=== PATIENT | female | born 1955 | race Caucasian/White ===

== ENCOUNTER → 2017-01-15 | Outpatient (CLI) | payer OTHER ==
[2017-01-15 11:27] LABS: ALBUMIN 3.8 GM/DL (3.2-5.2); ALBUMIN/GLOBULIN RATIO 1.27 (1.00-1.93); ALKALINE PHOSPHATASE 114 U/L (45-117); ALT/SGPT 29 U/L (12-78); ANION GAP 9 MEQ/L (8-16); AST/SGOT 23 U/L (15-37); BILIRUBIN,TOTAL 0.5 MG/DL (0.2-1.0); BLOOD UREA NITROGEN 9 MG/DL (7-18); CALCIUM LEVEL 8.5 MG/DL (8.8-10.2); CARBON DIOXIDE LEVEL 28 MEQ/L (21-32); CHLORIDE LEVEL 107 MEQ/L (98-107); CHOLESTEROL LEVEL 182 MG/DL (<200); GLOMERULAR FILTRATION RATE > 60.0 (>45); GLUCOSE, FASTING 94 MG/DL (80-110); POTASSIUM SERUM 4.1 MEQ/L (3.5-5.1); SODIUM LEVEL 144 MEQ/L (136-145); TOTAL PROTEIN 6.8 GM/DL (6.4-8.2); TRIGLYCERIDES LEVEL 131 MG/DL (<150)
== END ==
LOC: M LAB 10:25
PROVIDERS: ATTEND Family Medicine
DX: E66.9 Obesity, unspecified (principal)

== ENCOUNTER → 2017-02-20 | Outpatient (REF) | payer OTHER | LOC: M SFHCPLAZ 14:58 | PROVIDERS: ATTEND Family Medicine | DX: L57.0 Actinic keratosis (principal) ==

== ENCOUNTER → 2017-02-24 | Outpatient (CLI) | payer OTHER ==
[~2017-02-24] VITALS: Ht 172.7 cm; Wt 95.3 kg
[~2017-02-24] MED LIST: NS 1,000 ML IV SCH; PROPOFOL 200 MG/20 ML VIAL As Ordered ONE
--- NOTE | 2017-02-24 08:26 | ROOR ---
Patient Name: Chhaya García Procedure Date: 02/24/2017 8:11 AM Date of : 1955 Age: 61 Room: [facility] Gender: Female Note Status: Finalized Procedure: Colonoscopy Indications: High risk colon cancer surveillance: Personal history of colonic polyps, Last colonoscopy: January 2010 Providers: Joseph MARION MD Referring MD: Carmen Khalil MD Requesting Provider: Medicines: Monitored Anesthesia Care Complications: No immediate complications. Procedure: Pre-Anesthesia Assessment: - The heart rate, respiratory rate, oxygen saturations, blood pressure, adequacy of pulmonary ventilation, and response to care were monitored throughout the procedure. The Colonoscope was introduced through the anus and advanced to the cecum, identified by appendiceal orifice and ileocecal valve. The colonoscopy was performed without difficulty. The patient tolerated the procedure well. The quality of the bowel preparation was good. Findings: The perianal and digital rectal examinations were normal. A few medium-mouthed diverticula were found in the sigmoid colon. Small Internal Hemorrhoids. The entire examined colon appeared normal on direct and retroflexion views. (Exam: Complete, Prep: Good or Excellent.) Impression: - Mild diverticulosis in the sigmoid colon. - Small Internal Hemorrhoids. - The entire colon is normal on direct and retroflexion views. - No specimens collected. Recommendation: - Repeat colonoscopy in 5 years for adenoma surveillance. Joseph Marion MD Joseph MARION MD 02/24/2017 8:26:19 AM This report has been signed electronically. Number of Addenda: 0 Note Initiated On: 02/24/2017 8:11 AM Estimated Blood Loss: Estimated blood loss: none.
[2017-02-24 08:55] VITALS: BP 190/98
== END | disposition home or self-care (01) ==
LOC: M OPP 07:09
PROVIDERS: ATTEND Internal Medicine Gastroenterology
DX: Z12.11 Encounter for screening for malignant neoplasm of colon (principal); K57.30 Diverticulosis of large intestine without perforation or abscess without bleeding; K64.8 Other hemorrhoids; Z86.010 Personal history of colon polyps; Z78.0 Asymptomatic menopausal state; Z88.2 Allergy status to sulfonamides; Z80.9 Family history of malignant neoplasm, unspecified

== ENCOUNTER → 2017-07-10 | Outpatient (CLI) | payer OTHER ==
--- NOTE | 2017-07-10 10:29 | REPMRS ---
Patient History The patient states she had a clinical breast exam in 01/09 Patient is postmenopausal. Family history of unknown cancer in father under age 50. Digital Woman Screen Mammo: July 10, 2017 - Exam #: [id number] Bilateral CC and MLO view(s) were taken. Technologist: Dina Ragsdale, Technologist Prior study comparison: April 22, 2016, digital woman screen mammo performed at [facility]. May 06, 2012, digital woman screen mammo performed at [facility] to [facility]. FINDINGS: There are scattered fibroglandular densities. There is a fairly symmetric fibroglandular pattern in both breasts. There has been no interval development of masses, areas of architectural distortion or clusters of microcalcifications typical of malignancy. ASSESSMENT: BI-RADS/ACR category 2 mammogram. Benign finding(s). Recommendation Routine screening mammogram of both breasts in 1 year (for women over age 40). This mammogram was interpreted with the aid of an FDA-approved computer-aided dectection system. Electronically Signed By: Blayne Bah MD 07/10/17 3400
== END ==
LOC: M WHC 09:51
PROVIDERS: ATTEND Family Medicine
DX: Z12.31 Encounter for screening mammogram for malignant neoplasm of breast (principal); Z78.0 Asymptomatic menopausal state; R92.8 Other abnormal and inconclusive findings on diagnostic imaging of breast

== ENCOUNTER → 2018-04-02 | Outpatient (REF) | payer OTHER ==
[2018-04-02 13:34] LABS: CHOLESTEROL LEVEL 197 MG/DL (<200); CHOLESTEROL RISK RATIO 3.648 (<5); GLUCOSE, FASTING 89 MG/DL (70-100); HDL CHOLESTEROL 54 MG/DL (>40); LDL CHOLESTEROL 128.6 MG/DL (<100); NON-HDL-C 143 MG/DL; TRIGLYCERIDES LEVEL 72 MG/DL (<150)
== END ==
LOC: M SFHCPLAZ 11:11
DX: Z13.1 Encounter for screening for diabetes mellitus (principal); Z13.220 Encounter for screening for lipoid disorders
CPT/HCPCS: 82947

== ENCOUNTER → 2018-04-27 | Outpatient (REF) | payer OTHER ==
[2018-04-27 19:06] LABS: APPEARANCE, URINE HAZY (CLEAR); BACTERIA, URINE AUTO NEGATIVE (NEGATIVE); BILIRUBIN, URINE AUTO NEGATIVE (NEGATIVE); BLOOD, URINE BLOOD 2+ (NEGATIVE); CALCIUM OXALATE CRYSTALS MODERATE; COLOR, URINE YELLOW (YELLOW); GLUCOSE, URINE (UA) AUTO NEGATIVE (NEGATIVE); KETONE, URINE AUTO NEGATIVE (NEGATIVE); LEUKOCYTE ESTERASE, URINE AUTO NEGATIVE (NEGATIVE); MUCUS, URINE SMALL (NEGATIVE); NITRITE, URINE AUTO NEGATIVE (NEGATIVE); PROTEIN, URINE AUTO NEGATIVE (NEGATIVE); RBC, URINE AUTO 9 /HPF (0-3); SPECIFIC GRAVITY URINE AUTO 1.023 (1.002-1.035); SQUAMOUS EPITHELIAL CELL UR AU 0 /HPF (0-6); UROBILINOGEN, URINE AUTO 0.2 mg/dL (0.0-2.0); WBC, URINE AUTO 1 /HPF (0-3)
[2018-04-27 19:08] LABS: MALB URINE SIEMENS 66.9 MG/L; MAU/CREAT RATIO 33.4 MCG/MG (0.0-30.0)
[2018-04-27 19:09] LABS: ANION GAP 8 MEQ/L (8-16); BLOOD UREA NITROGEN 11 MG/DL (7-18); CALCIUM LEVEL 8.7 MG/DL (8.8-10.2); CARBON DIOXIDE LEVEL 27 MEQ/L (21-32); CHLORIDE LEVEL 109 MEQ/L (98-107); CREATININE FOR GFR 0.99 MG/DL (0.55-1.30); FREE T4 0.93 NG/DL (0.76-1.46); GLOMERULAR FILTRATION RATE > 60.0 (>45); GLUCOSE, FASTING 88 MG/DL (70-100); MAGNESIUM LEVEL 2.2 MG/DL (1.8-2.4); POTASSIUM SERUM 3.8 MEQ/L (3.5-5.1); SODIUM LEVEL 144 MEQ/L (136-145); THYROID STIMULATING HORMONE 0.581 uIU/ML (0.358-3.740)
== END ==
LOC: M SFHCPLAZ 13:39
DX: I10 Essential (primary) hypertension (principal)

== ENCOUNTER → 2018-05-07 | Outpatient (REF) | payer OTHER ==
[2018-05-07 12:32] LABS: ANION GAP 10 MEQ/L (8-16); BLOOD UREA NITROGEN 14 MG/DL (7-18); CALCIUM LEVEL 9.5 MG/DL (8.8-10.2); CARBON DIOXIDE LEVEL 29 MEQ/L (21-32); CHLORIDE LEVEL 99 MEQ/L (98-107); CREATININE FOR GFR 1.13 MG/DL (0.55-1.30); GLOMERULAR FILTRATION RATE 51.6 (>45); GLUCOSE, FASTING 97 MG/DL (70-100); POTASSIUM SERUM 3.5 MEQ/L (3.5-5.1); SODIUM LEVEL 138 MEQ/L (136-145)
== END ==
LOC: M SFHCPLAZ 09:54
DX: I10 Essential (primary) hypertension (principal)
CPT/HCPCS: 80048

== ENCOUNTER → 2018-05-31 | Outpatient (REF) | payer OTHER ==
[2018-05-31 16:05] LABS: ANION GAP 7 MEQ/L (8-16); BLOOD UREA NITROGEN 8 MG/DL (7-18); CALCIUM LEVEL 8.7 MG/DL (8.8-10.2); CARBON DIOXIDE LEVEL 27 MEQ/L (21-32); CHLORIDE LEVEL 109 MEQ/L (98-107); CREATININE FOR GFR 0.91 MG/DL (0.55-1.30); GLOMERULAR FILTRATION RATE > 60.0 (>45); GLUCOSE, FASTING 83 MG/DL (70-100); POTASSIUM SERUM 4.1 MEQ/L (3.5-5.1); SODIUM LEVEL 143 MEQ/L (136-145)
== END ==
LOC: M SFHCPLAZ 10:52
DX: I10 Essential (primary) hypertension (principal); D23.39 Other benign neoplasm of skin of other parts of face
CPT/HCPCS: 80048

== ENCOUNTER → 2018-07-13 | Outpatient (CLI) | payer OTHER | LOC: M WHC 11:36 | DX: Z12.31 Encounter for screening mammogram for malignant neoplasm of breast (principal) | CPT/HCPCS: 77067 ==

== ENCOUNTER → 2019-04-07 | Outpatient (REF) | payer MEDICARE, MEDICAID ==
[2019-04-07 13:21] LABS: MALB URINE SIEMENS 24.2 MG/L; MAU/CREAT RATIO 17.4 MCG/MG (0.0-30.0)
[2019-04-07 13:32] LABS: ALBUMIN 3.3 GM/DL (3.2-5.2); ALT/SGPT 32 U/L (12-78); BILIRUBIN,TOTAL 0.5 MG/DL (0.2-1.0); BLOOD UREA NITROGEN 7 MG/DL (7-18); CALCIUM LEVEL 8.4 MG/DL (8.8-10.2); CARBON DIOXIDE LEVEL 24 MEQ/L (21-32); CHLORIDE LEVEL 108 MEQ/L (98-107); CHOLESTEROL LEVEL 180 MG/DL (<200); CREATININE FOR GFR 0.77 MG/DL (0.55-1.30); GLOMERULAR FILTRATION RATE > 60.0 (>45); GLUCOSE, FASTING 88 MG/DL (70-100); HDL CHOLESTEROL 50 MG/DL (>40); LDL CHOLESTEROL 110 MG/DL (<100); NON-HDL-C 130 MG/DL; SODIUM LEVEL 140 MEQ/L (136-145); TOTAL PROTEIN 6.8 GM/DL (6.4-8.2); TRIGLYCERIDES LEVEL 99 MG/DL (<150)
== END ==
LOC: M SFHCPLAZ 09:53
PROVIDERS: ATTEND Family Medicine
DX: I10 Essential (primary) hypertension (principal); Z13.220 Encounter for screening for lipoid disorders

== ENCOUNTER → 2019-04-14 | Outpatient (REF) | payer MEDICARE, MEDICAID ==
[2019-04-16 14:12] LABS: HPV HYBRID CAPTURE II Negative (Negative)
== END ==
LOC: M SFHCPLAZ 13:43
PROVIDERS: ATTEND Family Medicine
DX: Z12.4 Encounter for screening for malignant neoplasm of cervix (principal); R87.610 Atypical squamous cells of undetermined significance on cytologic smear of cervix (ASC-US)
CPT/HCPCS: 87624; 90670; G0009; G0123

== ENCOUNTER → 2019-05-19 | Outpatient (REF) | payer MEDICARE, MEDICAID | LOC: M LAB REF 16:31 | PROVIDERS: ATTEND Family Medicine | DX: L82.1 Other seborrheic keratosis (principal) ==

== ENCOUNTER → 2019-12-26 | Outpatient (CLI) | payer MEDICARE, OTHER ==
[2019-12-26 14:43] LABS: BLOOD UREA NITROGEN 9 MG/DL (7-18); CARBON DIOXIDE LEVEL 27 MEQ/L (21-32); CHLORIDE LEVEL 106 MEQ/L (98-107); CREATININE FOR GFR 0.93 MG/DL (0.55-1.30); GLOMERULAR FILTRATION RATE > 60.0 (>45); GLUCOSE, FASTING 85 MG/DL (70-100); SODIUM LEVEL 139 MEQ/L (136-145)
== END ==
LOC: M PLALAB 11:34
PROVIDERS: ATTEND Family Medicine
DX: I10 Essential (primary) hypertension (principal)

== ENCOUNTER → 2019-12-26 | Outpatient (CLI) | payer MEDICARE, OTHER ==
--- NOTE | 2019-12-28 10:43 | DEXA ---
AP SPINE L1 - L4 1.066 -1.0 0.6 LT FEMUR TOTAL 0.846 -1.3 0.0 LT NECK 0.736 -2.2 -0.7 RT FEMUR TOTAL 0.809 -1.6 -0.3 RT NECK 0.741 -2.1 -0.6 TOTAL BODY TOTAL OTHER COMMENTS: There is low bone density of the spine and hips. FOLLOW-UP: Recommendation for the next bone density exam: 2 years. JOHN
== END ==
LOC: M WHC 11:04
PROVIDERS: ATTEND Family Medicine
DX: M81.0 Age-related osteoporosis without current pathological fracture (principal); I10 Essential (primary) hypertension

== ENCOUNTER → 2021-02-13 | Outpatient (REF) | payer MEDICARE, MEDICAID ==
[2021-02-13 14:01] LABS: HEMOGLOBIN A1c 5.3 %
[2021-02-13 14:07] LABS: ALBUMIN 3.8 GM/DL (3.2-5.2); ALT/SGPT 37 U/L (12-78); BILIRUBIN,TOTAL 0.8 MG/DL (0.2-1.0); BLOOD UREA NITROGEN 5 MG/DL (7-18); CALCIUM LEVEL 9.3 MG/DL (8.8-10.2); CARBON DIOXIDE LEVEL 30 MEQ/L (21-32); CHLORIDE LEVEL 99 MEQ/L (98-107); CHOLESTEROL LEVEL 184 MG/DL (<200); CREATININE FOR GFR 0.85 MG/DL (0.55-1.30); GLOMERULAR FILTRATION RATE > 60.0 (>45); GLUCOSE, FASTING 109 MG/DL (70-100); HDL CHOLESTEROL 42 MG/DL (>40); LDL CHOLESTEROL 105 MG/DL (<100); NON-HDL-C 142 MG/DL; SODIUM LEVEL 139 MEQ/L (136-145); TOTAL PROTEIN 7.3 GM/DL (6.4-8.2); TRIGLYCERIDES LEVEL 183 MG/DL (<150)
== END ==
LOC: M SFHCPLAZ 11:44
PROVIDERS: ATTEND Family Medicine
DX: I10 Essential (primary) hypertension (principal); Z13.1 Encounter for screening for diabetes mellitus; Z13.220 Encounter for screening for lipoid disorders; Z79.899 Other long term (current) drug therapy; Z23 Encounter for immunization
CPT/HCPCS: 36415; 80053; 80061; 83036; 90732; G0009

== ENCOUNTER → 2021-02-18 | Outpatient (REF) | payer MEDICARE, MEDICAID ==
[2021-02-18 15:31] LABS: BLOOD UREA NITROGEN 6 MG/DL (7-18); CALCIUM LEVEL 8.7 MG/DL (8.8-10.2); CARBON DIOXIDE LEVEL 31 MEQ/L (21-32); CHLORIDE LEVEL 104 MEQ/L (98-107); CREATININE FOR GFR 0.92 MG/DL (0.55-1.30); GLOMERULAR FILTRATION RATE > 60.0 (>45); GLUCOSE, FASTING 105 MG/DL (70-100); POTASSIUM SERUM 2.9 MEQ/L (3.5-5.1); SODIUM LEVEL 141 MEQ/L (136-145)
== END ==
LOC: M PLALAB 12:21
PROVIDERS: ATTEND Family Medicine
DX: E87.6 Hypokalemia (principal)

== ENCOUNTER → 2021-02-22 | Outpatient (CLI) | payer MEDICARE, MEDICAID ==
--- NOTE | 2021-02-22 11:32 | REPMRS ---
Patient History The patient states she has not had a clinical breast exam in over a year. Family history of unknown cancer under age 50 in father. 3D TOMOSYNTHESIS WAS PERFORMED. [facility]%. [place] breast density b. Digital Woman Screen Mammo: February 22, 2021 - Exam #: [id number] Bilateral CC and MLO view(s) were taken. Technologist: Roxie Lockett, Technologist Prior study comparison: July 13, 2018, bilateral digital woman screen mammo performed at [facility]. July 10, 2017, digital woman screen mammo performed at [facility]. FINDINGS: There are scattered fibroglandular densities. There has been no change in the appearance of the mammogram from the prior studies. There is a mild amount of residual fibroglandular tissue which is fairly symmetric. There is no interval development of dominant mass, architectural distortion, or clustered microcalcification suggestive of malignancy. Assessment: BI-RADS/ACR category 1 mammogram. Negative Mammogram. Recommendation Routine screening mammogram in 1 year (for women over age 40). This mammogram was interpreted with the aid of an FDA-approved computer-aided dectection system. Electronically Signed By: Blayne Bah MD 02/22/21 [id number]
== END ==
LOC: M WHC 10:13
PROVIDERS: ATTEND Family Medicine
DX: Z12.31 Encounter for screening mammogram for malignant neoplasm of breast (principal); Z80.8 Family history of malignant neoplasm of other organs or systems; E87.6 Hypokalemia

== ENCOUNTER → 2021-02-22 | Outpatient (REF) | payer MEDICARE, MEDICAID ==
[2021-02-22 14:25] LABS: BLOOD UREA NITROGEN 6 MG/DL (7-18); CALCIUM LEVEL 9.2 MG/DL (8.8-10.2); CARBON DIOXIDE LEVEL 24 MEQ/L (21-32); CHLORIDE LEVEL 105 MEQ/L (98-107); CREATININE FOR GFR 0.82 MG/DL (0.55-1.30); GLOMERULAR FILTRATION RATE > 60.0 (>45); GLUCOSE, FASTING 100 MG/DL (70-100); POTASSIUM RANDOM URINE 32.7 MEQ/L; POTASSIUM SERUM 3.4 MEQ/L (3.5-5.1); SODIUM LEVEL 139 MEQ/L (136-145)
== END ==
LOC: M PLALAB 10:43
PROVIDERS: ATTEND Family Medicine
DX: E87.6 Hypokalemia (principal)

== ENCOUNTER → 2021-03-04 | Outpatient (CLI) | payer MEDICARE, MEDICAID ==
[2021-03-04 14:32] LABS: BLOOD UREA NITROGEN 8 MG/DL (7-18); CALCIUM LEVEL 8.8 MG/DL (8.8-10.2); CARBON DIOXIDE LEVEL 28 MEQ/L (21-32); CHLORIDE LEVEL 104 MEQ/L (98-107); CREATININE FOR GFR 0.84 MG/DL (0.55-1.30); GLOMERULAR FILTRATION RATE > 60.0 (>45); GLUCOSE, FASTING 119 MG/DL (70-100); POTASSIUM SERUM 3.8 MEQ/L (3.5-5.1); SODIUM LEVEL 139 MEQ/L (136-145)
== END ==
LOC: M PLALAB 09:28
PROVIDERS: ATTEND Family Medicine
DX: E87.6 Hypokalemia (principal)

== ENCOUNTER → 2021-08-13 | Outpatient (CLI) | payer MEDICARE, MEDICAID ==
--- NOTE | 2021-08-13 12:22 | REP ---
INDICATION: PAIN IN RIGHT ANKLE AND JOINTS OF RIGHT FOOT. COMPARISON: None. TECHNIQUE: Four views FINDINGS: There is a distal fibular fracture. The mortise is intact. Chronic changes are seen distal to the medial malleolus. Plantar and retrocalcaneal heel spurs are present. IMPRESSION: Distal fibular fracture and other findings as described above. <Electronically signed by Cortez Godinez > 08/13/21 [id number]
[2021-08-13 13:33] LABS: BASO # 0.1 10^3/uL (0.0-0.2); BASO % 0.7 % (0.0-1.0); EOS # 0.1 10^3/uL (0.0-0.5); EOS % 0.7 % (0.0-3.0); HEMATOCRIT 41.7 % (36.0-47.0); HEMOGLOBIN 14.1 g/dl (12.0-15.5); LYMPH # 2.7 10^3/uL (1.5-5.0); LYMPH % 31.5 % (24.0-44.0); MEAN CORPUSCULAR HEMOGLOBIN 33.9 pg (27.0-33.0); MEAN CORPUSCULAR HGB CONC 33.8 g/dl (32.0-36.5); MEAN CORPUSCULAR VOLUME 100.2 fl (80.0-96.0); MONO # 0.6 10^3/uL (0.0-0.8); MONO % 7.5 % (2.0-8.0); NEUTROPHILS # 5.1 10^3/uL (1.5-8.5); NEUTROPHILS % 59.1 % (36.0-66.0); PLATELET COUNT, AUTOMATED 239 10^3/uL (150-450); RED BLOOD COUNT 4.16 10^6/uL (4.00-5.40); WHITE BLOOD COUNT 8.6 10^3/uL (4.0-10.0)
[2021-08-13 13:53] LABS: ERYTHROCYTE SEDIMENTATION RATE 29 mm/hr (0-30)
[2021-08-13 14:08] LABS: ALBUMIN 3.3 GM/DL (3.2-5.2); BILIRUBIN,TOTAL 1.1 MG/DL (0.2-1.0); C REACTIVE PROTEIN QUANTITATIV 2.85 MG/DL (0.00-0.30); CALCIUM LEVEL 9.5 MG/DL (8.8-10.2); CREATININE FOR GFR 1.51 MG/DL (0.55-1.30); GLOMERULAR FILTRATION RATE 36.6 (>45); POTASSIUM SERUM 3.3 MEQ/L (3.5-5.1); THYROID STIMULATING HORMONE 2.39 uIU/ML (0.358-3.740)
== END ==
LOC: M PLAIMG 11:09
PROVIDERS: ATTEND Family Medicine
DX: S89.301A Unspecified physeal fracture of lower end of right fibula, initial encounter for closed fracture (principal); Y92.9 Unspecified place or not applicable; Y93.9 Activity, unspecified; Y99.9 Unspecified external cause status; M25.571 Pain in right ankle and joints of right foot; M77.31 Calcaneal spur, right foot
CPT/HCPCS: 36415; 73610; 80053; 83036; 84443; 85025; 85652; 86140; G0463

== ENCOUNTER 2021-08-14 16:48 | Emergency (ER) | payer MEDICARE, MEDICAID ==
[~2021-08-14] VITALS: Ht 172.7 cm; Wt 71.8 kg
[2021-08-14] MEDS ORDERED: NS 1,000 ML IV ONE ×3 (17:50→20:20)
[2021-08-14 18:19] LABS: BASO # 0.1 10^3/uL (0.0-0.2); BASO % 0.9 % (0.0-1.0); EOS # 0.1 10^3/uL (0.0-0.5); EOS % 0.9 % (0.0-3.0); HEMOGLOBIN 12.4 g/dl (12.0-15.5); LYMPH % 30.4 % (24.0-44.0); MEAN CORPUSCULAR HEMOGLOBIN 33.6 pg (27.0-33.0); MEAN CORPUSCULAR HGB CONC 34.4 g/dl (32.0-36.5); MEAN CORPUSCULAR VOLUME 97.6 fl (80.0-96.0); MONO # 0.7 10^3/uL (0.0-0.8); MONO % 10.4 % (2.0-8.0); NEUTROPHILS # 3.7 10^3/uL (1.5-8.5); NEUTROPHILS % 56.9 % (36.0-66.0); PLATELET COUNT, AUTOMATED 166 10^3/uL (150-450); RED BLOOD COUNT 3.69 10^6/uL (4.00-5.40); WHITE BLOOD COUNT 6.4 10^3/uL (4.0-10.0)
[2021-08-14 18:43] LABS: CALCIUM LEVEL 9.1 MG/DL (8.8-10.2); CREATININE FOR GFR 1.43 MG/DL (0.55-1.30); MAGNESIUM LEVEL 1.6 MG/DL (1.8-2.4); POTASSIUM SERUM 3.2 MEQ/L (3.5-5.1)
[2021-08-14] MEDS ORDERED: MAG SULF 1GM/100ML (MAG RUN) 1 GM in IV 1 EA IV ONE ×4 (19:00)
[2021-08-14] MEDS ORDERED: POTASSIUM CHLORIDE 10MEQ SR TABLET PO ONE (19:00)
[2021-08-14 21:46] VITALS: BP 148/83
== END 2021-08-14 22:30 | disposition home or self-care (01) ==
LOC: EDBD 16:48 → M ED 16:48
DX: E86.0 Dehydration (principal); E87.6 Hypokalemia; E83.42 Hypomagnesemia; R53.1 Weakness; I10 Essential (primary) hypertension; Z88.1 Allergy status to other antibiotic agents; Z88.2 Allergy status to sulfonamides; S82.61XA Displaced fracture of lateral malleolus of right fibula, initial encounter for closed fracture; X58.XXXA Exposure to other specified factors, initial encounter; Y92.9 Unspecified place or not applicable
CPT/HCPCS: 73610; 80048; 83735; 85025; 87798; 99285; J3475

== ENCOUNTER → 2021-08-14 | Outpatient (CLI) | payer MEDICARE, MEDICAID ==
--- NOTE | 2021-08-14 10:52 | REP ---
INDICATION: RT ANKLE FX. COMPARISON: 08/13/2021 TECHNIQUE: AP and lateral with cast on FINDINGS: Previously described distal fibular fracture is again noted but the detail of which is decreased due to the overlying cast. There does not appear to be a significant change. The mortise is again seen to be intact. There are no additional fractures identified. IMPRESSION: As above. <Electronically signed by Cortez Godinez > 08/14/21 104
== END ==
LOC: M SOG 09:47
PROVIDERS: ATTEND Orthopaedic Surgery
DX: S82.61XA Displaced fracture of lateral malleolus of right fibula, initial encounter for closed fracture (principal); X58.XXXA Exposure to other specified factors, initial encounter; Y92.9 Unspecified place or not applicable

== ENCOUNTER → 2021-08-16 | Outpatient (CLI) | payer MEDICARE, MEDICAID ==
[2021-08-16 13:42] LABS: BLOOD UREA NITROGEN 7 MG/DL (7-18); CALCIUM LEVEL 8.4 MG/DL (8.8-10.2); CARBON DIOXIDE LEVEL 30 MEQ/L (21-32); CHLORIDE LEVEL 100 MEQ/L (98-107); CREATININE FOR GFR 0.87 MG/DL (0.55-1.30); GLOMERULAR FILTRATION RATE > 60.0 (>45); GLUCOSE, FASTING 82 MG/DL (70-100); MAGNESIUM LEVEL 1.6 MG/DL (1.8-2.4); POTASSIUM SERUM 3.4 MEQ/L (3.5-5.1); SODIUM LEVEL 137 MEQ/L (136-145)
== END ==
LOC: M PLALAB 09:27
PROVIDERS: ATTEND Family Medicine
DX: R94.4 Abnormal results of kidney function studies (principal); E83.42 Hypomagnesemia

== ENCOUNTER → 2021-08-19 | Outpatient (CLI) | payer MEDICARE, MEDICAID ==
[2021-08-19 13:20] LABS: HEMATOCRIT 38.8 % (36.0-47.0); HEMOGLOBIN 13.1 g/dl (12.0-15.5); MEAN CORPUSCULAR HEMOGLOBIN 33.9 pg (27.0-33.0); MEAN CORPUSCULAR HGB CONC 33.8 g/dl (32.0-36.5); MEAN CORPUSCULAR VOLUME 100.5 fl (80.0-96.0); PLATELET COUNT, AUTOMATED 190 10^3/uL (150-450); RED BLOOD COUNT 3.86 10^6/uL (4.00-5.40); WHITE BLOOD COUNT 5.9 10^3/uL (4.0-10.0)
[2021-08-19 13:41] LABS: BLOOD UREA NITROGEN 5 MG/DL (7-18); CALCIUM LEVEL 8.6 MG/DL (8.8-10.2); CARBON DIOXIDE LEVEL 29 MEQ/L (21-32); CHLORIDE LEVEL 99 MEQ/L (98-107); CREATININE FOR GFR 0.87 MG/DL (0.55-1.30); GLOMERULAR FILTRATION RATE > 60.0 (>45); GLUCOSE, FASTING 118 MG/DL (70-100); POTASSIUM SERUM 3.6 MEQ/L (3.5-5.1); SODIUM LEVEL 136 MEQ/L (136-145)
[2021-08-19 13:53] LABS: FOLATE 2.1 NG/ML; VITAMIN B12 LEVEL 459 PG/ML
== END ==
LOC: M PLALAB 11:32
PROVIDERS: ATTEND Family Medicine
DX: E87.6 Hypokalemia (principal); D75.89 Other specified diseases of blood and blood-forming organs; I10 Essential (primary) hypertension
CPT/HCPCS: 36415; 80048; 82607; 82746; 85027; G0463

== ENCOUNTER → 2021-09-03 | Outpatient (CLI) | payer MEDICARE, MEDICAID ==
--- NOTE | 2021-09-03 11:30 | REP ---
INDICATION: ANKLE FX. COMPARISON: 08/14/2021 TECHNIQUE: AP, lateral, oblique views of the right ankle FINDINGS: Oblique fracture of the distal fibular metaphysis demonstrates satisfactory alignment. Further evaluation is limited by overlying cast material. Incidental calcaneal heel spur noted. IMPRESSION: Stable oblique fracture of the distal fibular metaphysis. <Electronically signed by Adarsh Booker > 09/03/21 [id number]
== END ==
LOC: M SOG 11:03
PROVIDERS: ATTEND Orthopaedic Surgery
DX: S82.61XA Displaced fracture of lateral malleolus of right fibula, initial encounter for closed fracture (principal); W18.30XA Fall on same level, unspecified, initial encounter; Y92.009 Unspecified place in unspecified non-institutional (private) residence as the place of occurrence of the external cause

== ENCOUNTER → 2021-09-10 | Outpatient (CLI) | payer MEDICARE, MEDICAID ==
--- NOTE | 2021-09-10 13:47 | REP ---
INDICATION: ABNORMAL WEIGHT LOSS. COMPARISON: None. TECHNIQUE: PA and lateral FINDINGS: The lung kelly are mildly hyperexpanded. There is right CP angle blunting. The heart is not enlarged. The lung kelly are clear. The osseous structures are within normal limits for the patient's age. IMPRESSION: There is mild right CP angle blunting. There are no priors for comparison. Since the patient presents with unintentional weight loss consider contrast-enhanced CT examination of the chest. <Electronically signed by Cortez Godinez > 09/10/21 [id number]
[2021-09-10 15:17] LABS: BASO # 0.1 10^3/uL (0.0-0.2); BASO % 0.7 % (0.0-1.0); EOS # 0.1 10^3/uL (0.0-0.5); EOS % 0.8 % (0.0-3.0); HEMATOCRIT 40.1 % (36.0-47.0); HEMOGLOBIN 13.5 g/dl (12.0-15.5); LYMPH # 2.4 10^3/uL (1.5-5.0); LYMPH % 32.3 % (24.0-44.0); MEAN CORPUSCULAR HGB CONC 33.7 g/dl (32.0-36.5); MONO # 0.8 10^3/uL (0.0-0.8); MONO % 11.4 % (2.0-8.0); NEUTROPHILS % 54.5 % (36.0-66.0); PLATELET COUNT, AUTOMATED 210 10^3/uL (150-450); RED BLOOD COUNT 4.09 10^6/uL (4.00-5.40); WHITE BLOOD COUNT 7.3 10^3/uL (4.0-10.0)
[2021-09-10 15:41] LABS: ALBUMIN 3.3 GM/DL (3.2-5.2); ALT/SGPT 29 U/L (12-78); BILIRUBIN,TOTAL 0.8 MG/DL (0.2-1.0); BLOOD UREA NITROGEN 7 MG/DL (7-18); C REACTIVE PROTEIN QUANTITATIV 1.08 MG/DL (0.00-0.30); CALCIUM LEVEL 9.4 MG/DL (8.8-10.2); CARBON DIOXIDE LEVEL 33 MEQ/L (21-32); CHLORIDE LEVEL 97 MEQ/L (98-107); CREATININE FOR GFR 0.92 MG/DL (0.55-1.30); GLOMERULAR FILTRATION RATE > 60.0 (>45); GLUCOSE, FASTING 112 MG/DL (70-100); POTASSIUM SERUM 3.1 MEQ/L (3.5-5.1); SODIUM LEVEL 137 MEQ/L (136-145); TOTAL PROTEIN 7.3 GM/DL (6.4-8.2)
[2021-09-10 16:14] LABS: ERYTHROCYTE SEDIMENTATION RATE 23 mm/hr (0-30)
[2021-09-10 16:28] LABS: HIV 1&2 SCREEN CENTAUR NEGATIVE (NEGATIVE)
== END ==
LOC: M PLAIMG 12:57
PROVIDERS: ATTEND Family Medicine
DX: R91.8 Other nonspecific abnormal finding of lung field (principal); R63.4 Abnormal weight loss
CPT/HCPCS: 36415; 71046; 80053; 85025; 85652; 86140; 87389; G0472

== ENCOUNTER → 2021-09-16 | Outpatient (CLI) | payer MEDICARE, MEDICAID ==
[~2021-09-16] MED LIST changes: +ISOVUE-370 76% 100ML VIAL As Ordered ONE; -NS 1,000 ML IV SCH; -PROPOFOL 200 MG/20 ML VIAL As Ordered ONE
--- NOTE | 2021-09-16 14:46 | REP ---
INDICATION: ABNORMAL XRAY COMPARISON: Prior plain film examination showed right CP angle blunting with no prior plain films for comparison TECHNIQUE: Standard helical technique after the intravenous administration of 100 cc Isovue 370 FINDINGS: There is no mediastinal or hilar adenopathy. There are no pleural or pericardial effusions. The imaged upper abdomen shows chronic scarring superior pole right kidney which was the only portion of the kidney that was imaged. Bone window technique throughout the exam shows chronic spinal degenerative changes. Evaluation of the lung kelly shows mild biapical pleuroparenchymal scarring. There are a few right lung base CP angle curvilinear densities. There are a few scattered asymmetric pleural based densities bilaterally particularly in the upper lobe regions. There is mild cylindrical bronchiectasis. In the left upper lobe there is a 4 mm size nodule. IMPRESSION: 1. 4 mm size nodule in the left upper lobe. According to the revised Fleischner society criteria this represents a category 3 lesion for which a six-month follow-up CT is recommended. 2. Likely chronic changes in the lung apical regions and in multiple pleural areas as described above. The curvilinear densities in the right CP angle are also likely chronic in nature. These areas can also be followed in the six-month recommended time frame. 3. There is mild cylindrical bronchiectasis. <Electronically signed by Cortez Godinez > 09/16/21 0422
== END ==
LOC: M RAD 11:29
PROVIDERS: ATTEND Family Medicine
DX: R93.89 Abnormal findings on diagnostic imaging of other specified body structures (principal); R91.8 Other nonspecific abnormal finding of lung field
CPT/HCPCS: 71260; Q9967

== ENCOUNTER → 2021-09-24 | Outpatient (CLI) | payer MEDICARE, MEDICAID ==
--- NOTE | 2021-09-24 17:11 | REP ---
INDICATION: RT ANKLE FX. COMPARISON: 09/03/[address] TECHNIQUE: Four views FINDINGS: The previously described distal fibular fracture has indistinct margins consistent with callus formation from healing. There is no change in the mortise. There is possible mild medial widening. Chronic changes are seen arising from the tip of the medial malleolus. These are unchanged. IMPRESSION: Healing fracture <Electronically signed by Cortez Godinez > 09/24/21 [id number]
== END ==
LOC: M SOG 09:04
PROVIDERS: ATTEND Orthopaedic Surgery
DX: S82.61XD Displaced fracture of lateral malleolus of right fibula, subsequent encounter for closed fracture with routine healing (principal)

== ENCOUNTER 2021-10-24 10:43 | Inpatient (IN) | payer MEDICARE, MEDICAID ==
[~2021-10-24] VITALS: Ht 172.7 cm; Wt 61.3 kg
[2021-10-24] MEDS ORDERED: ACETAMINOPHEN 500 MG TAB PO ONE (12:30)
[2021-10-24] MEDS ORDERED: NS 1,000 ML IV ONE (12:30)
[2021-10-24 12:52] LABS: INR 1.15; PROTHROMBIN TIME 15.1 SECONDS (12.7-14.5)
[2021-10-24 13:32] LABS: BASO % 0.4 % (0.0-1.0); EOS % 0.1 % (0.0-3.0); HEMATOCRIT 38.7 % (36.0-47.0); HEMOGLOBIN 13.3 g/dl (12.0-15.5); LYMPH # 1.9 10^3/uL (1.5-5.0); MEAN CORPUSCULAR HEMOGLOBIN 33.4 pg (27.0-33.0); MEAN CORPUSCULAR HGB CONC 34.4 g/dl (32.0-36.5); MEAN CORPUSCULAR VOLUME 97.2 fl (80.0-96.0); MONO # 0.7 10^3/uL (0.0-0.8); NEUTROPHILS # 5.6 10^3/uL (1.5-8.5); NEUTROPHILS % 67.9 % (36.0-66.0); PLATELET COUNT, AUTOMATED 139 10^3/uL (150-450); RED BLOOD COUNT 3.98 10^6/uL (4.00-5.40); WHITE BLOOD COUNT 8.2 10^3/uL (4.0-10.0)
[2021-10-24 14:21] LABS: ERYTHROCYTE SEDIMENTATION RATE 20 mm/hr (0-30)
[2021-10-24] MEDS ORDERED: KCL 10MEQ/100ML SWI (KRUN) 10 MEQ in IV 1 EA IV ONE ×2 (15:00→16:00)
[2021-10-24] MEDS ORDERED: ISOVUE-370 76% 100ML VIAL As Ordered ONE (15:18)
[2021-10-24 15:28] LABS: CK-MB VALUE MASS < 1.0 NG/ML (<3.6); CPK CREATINE PHOSPHOKINASE 62 U/L (26-192); MB/CK RELATIVE INDEX 1.61 (< OR =4)
[2021-10-24 15:34] LABS: ALBUMIN 2.7 GM/DL (3.2-5.2); ALT/SGPT 37 U/L (12-78); BILIRUBIN,DIRECT 0.4 MG/DL (0.0-0.2); BILIRUBIN,TOTAL 1.1 MG/DL (0.2-1.0); BLOOD UREA NITROGEN 10 MG/DL (7-18); CALCIUM LEVEL 8.2 MG/DL (8.8-10.2); CARBON DIOXIDE LEVEL 32 MEQ/L (21-32); CHLORIDE LEVEL 98 MEQ/L (98-107); CREATININE FOR GFR 0.57 MG/DL (0.55-1.30); FREE T4 1.68 NG/DL (0.76-1.46); GLOMERULAR FILTRATION RATE > 60.0 (>45); GLUCOSE, FASTING 103 MG/DL (70-100); LIPASE 86 U/L (73-393); NT-PRO BNP 102 PG/ML (<125); POTASSIUM SERUM 2.6 MEQ/L (3.5-5.1); SODIUM LEVEL 138 MEQ/L (136-145); THYROID STIMULATING HORMONE 0.615 uIU/ML (0.358-3.740); TOTAL PROTEIN 5.8 GM/DL (6.4-8.2)
[2021-10-24] MEDS ORDERED: POTASSIUM CHLORIDE 10MEQ SR TABLET PO ONE ×2 (16:00→19:10)
[2021-10-24 18:39] LABS: RSV AMPLIFICATION NEGATIVE (NEGATIVE)
[2021-10-24] MEDS ORDERED: COMBIVENT RESPIMAT 100-20MCG INHALER 4GM INH PRN (20:00)
[2021-10-24] MEDS ORDERED: BENZONATATE 100MG CAPSULE PO PRN (20:00)
[2021-10-24 20:33] LABS: MAGNESIUM LEVEL 1.4 MG/DL (1.8-2.4)
[2021-10-24] MEDS ORDERED: MAG SULF 1GM/100ML (MAG RUN) 1 GM in IV 1 EA IV ONE (22:00)
[2021-10-24] MEDS ORDERED: MAGNESIUM OXIDE 400MG TAB (MAG-OX) PO ONE (22:00)
[2021-10-24 22:21] LABS: VENOUS BASE EXCESS 2.8 (-2.0-2.0); VENOUS HCO3 26.1 MEQ/L (23.0-27.0); VENOUS O2 SATURATION 84.4 % (60.0-80.0); VENOUS PARTIAL PRESSURE CO2 35.7 mmHg (38.0-50.0); VENOUS PARTIAL PRESSURE O2 47.8 mmHg (30.0-50.0); VENOUS PH 7.482 UNITS (7.330-7.430); VENOUS STANDARD HCO3 26.7 MEQ/L; VENOUS TOTAL CO2 27.2 MEQ/L (24.0-28.0)
[2021-10-24 22:50] LABS: BLOOD UREA NITROGEN 8 MG/DL (7-18); CALCIUM LEVEL 8.6 MG/DL (8.8-10.2); CARBON DIOXIDE LEVEL 30 MEQ/L (21-32); CHLORIDE LEVEL 100 MEQ/L (98-107); CREATININE FOR GFR 0.48 MG/DL (0.55-1.30); GLOMERULAR FILTRATION RATE > 60.0 (>45); GLUCOSE, FASTING 97 MG/DL (70-100); POTASSIUM SERUM 3.3 MEQ/L (3.5-5.1); SODIUM LEVEL 137 MEQ/L (136-145)
[2021-10-25] VITALS (8 sets, daily range): BP systolic 144–173; BP diastolic 76–110
[2021-10-25] MEDS: POTASSIUM CHLORIDE 10MEQ SR TABLET PO SCH ×2 (00:12→04:13)
[2021-10-25] MEDS ORDERED: FLON1SPR (03:54)
[2021-10-25] MEDS ORDERED: HOME MED LIST COMPLETE! XX SCH (03:55)
[2021-10-25] MEDS: HEPARIN SOD (PORCINE) 5000UNITS/ML 1ML VIAL/SYRINGE SC SCH ×3 (05:54→21:12)
[2021-10-25 07:59] LABS: MAGNESIUM LEVEL 2.2 MG/DL (1.8-2.4)
[2021-10-25] MEDS ORDERED: MAG SULF 1GM/100ML (MAG RUN) 1 GM in IV 1 EA IV ONE (08:00)
[2021-10-25] MEDS ORDERED: POTASSIUM CHLORIDE 10MEQ SR TABLET PO ONE (08:00)
[2021-10-25] MEDS ORDERED: ALBUTEROL 90 MCG/ACT 8GM HFA INHALER INH PRN (09:00)
[2021-10-25] MEDS ORDERED: ALBUTEROL SULFATE 2.5 MG/0.5 ML INH NEB SOLN INH PRN (09:00)
[2021-10-25] MEDS ORDERED: NS 1,000 ML IV SCH (09:00)
[2021-10-25] MEDS ORDERED: [UNRECOGNIZED DRUG - OTHER] IV ONE (09:00)
[2021-10-25] MEDS ORDERED: EPINEPHrine INJ 1 MG/ML 1ML AMP IM PRN (09:00)
[2021-10-25] MEDS ORDERED: methylPREDNISolone 125MG 2ML VIAL IV PRN (09:00)
[2021-10-25] MEDS ORDERED: diphenhydrAMINE 50MG/ML VIAL (J1200) IV PRN (09:00)
[2021-10-25] MEDS ORDERED: diphenhydrAMINE 25MG CAP PO ONE (09:00)
[2021-10-25 10:08] LABS: BLOOD UREA NITROGEN 7 MG/DL (7-18); CALCIUM LEVEL 8.8 MG/DL (8.8-10.2); CARBON DIOXIDE LEVEL 23 MEQ/L (21-32); CHLORIDE LEVEL 103 MEQ/L (98-107); CREATININE FOR GFR 0.52 MG/DL (0.55-1.30); GLOMERULAR FILTRATION RATE > 60.0 (>45); GLUCOSE, FASTING 83 MG/DL (70-100); POTASSIUM SERUM 4.7 MEQ/L (3.5-5.1); SODIUM LEVEL 137 MEQ/L (136-145)
[2021-10-25 10:21] LABS: BASO % 0.3 % (0.0-1.0); EOS % 0.2 % (0.0-3.0); HEMATOCRIT 37.7 % (36.0-47.0); LYMPH # 1.7 10^3/uL (1.5-5.0); LYMPH % 25.1 % (24.0-44.0); MEAN CORPUSCULAR HEMOGLOBIN 33.7 pg (27.0-33.0); MEAN CORPUSCULAR HGB CONC 34.5 g/dl (32.0-36.5); MEAN CORPUSCULAR VOLUME 97.7 fl (80.0-96.0); MONO # 0.5 10^3/uL (0.0-0.8); MONO % 6.8 % (2.0-8.0); NEUTROPHILS # 4.4 10^3/uL (1.5-8.5); NEUTROPHILS % 66.8 % (36.0-66.0); PLATELET COUNT, AUTOMATED 134 10^3/uL (150-450); RED BLOOD COUNT 3.86 10^6/uL (4.00-5.40); WHITE BLOOD COUNT 6.6 10^3/uL (4.0-10.0)
[2021-10-25] MEDS: MAGNESIUM OXIDE 400MG TAB (MAG-OX) PO SCH ×2 (10:24→11:18)
[2021-10-25] MEDS ORDERED: CASIRIVIMAB/IMDEVIMAB 1,200 MG in NS 250 ML IV ONE (12:00)
[2021-10-25] MEDS ORDERED: FLUTICASONE PROP 0.05% NASAL SPRAY 16 GM (FLONASE) PRN (21:45)
[2021-10-25] MEDS ORDERED: **hydrALAZINE** 10 MG TAB PO PRN (21:45)
[2021-10-26] MEDS: **hydrALAZINE** 10 MG TAB PO PRN ×2 (05:09→14:49)
[2021-10-26] MEDS: HEPARIN SOD (PORCINE) 5000UNITS/ML 1ML VIAL/SYRINGE SC SCH ×3 (05:09→21:11)
[2021-10-26 05:23] VITALS: BP 166/93
[2021-10-26] MEDS: MAGNESIUM OXIDE 400MG TAB (MAG-OX) PO SCH (08:36)
[2021-10-26 14:44] VITALS: BP 170/92
[2021-10-26] MEDS ORDERED: amLODIPine 5 MG TAB PO ONE (18:00)
[2021-10-26] MEDS ORDERED: FUROSEMIDE 20MG/2ML VIAL (J1940) IV ONE (18:00)
[2021-10-26 18:08] VITALS: BP 151/96
[2021-10-26 18:09] VITALS: BP 151/96
[2021-10-26 22:00] VITALS: BP 112/80
[2021-10-27 05:21] VITALS: BP 125/71
[2021-10-27] MEDS: HEPARIN SOD (PORCINE) 5000UNITS/ML 1ML VIAL/SYRINGE SC SCH ×3 (05:22→21:05)
[2021-10-27] MEDS: MAGNESIUM OXIDE 400MG TAB (MAG-OX) PO SCH (10:18)
[2021-10-27] MEDS: LevoFLOXacin 500 MG TABLET PO SCH (10:19)
[2021-10-27 14:00] VITALS: BP 129/74
[2021-10-27 20:00] VITALS: BP 109/64
[2021-10-28 04:00] VITALS: BP 109/82
[2021-10-28] MEDS: HEPARIN SOD (PORCINE) 5000UNITS/ML 1ML VIAL/SYRINGE SC SCH ×3 (05:35→21:00)
[2021-10-28] MEDS: LevoFLOXacin 500 MG TABLET PO SCH (05:35)
[2021-10-28 07:58] LABS: HEMATOCRIT 38.5 % (36.0-47.0); HEMOGLOBIN 12.9 g/dl (12.0-15.5); MEAN CORPUSCULAR HEMOGLOBIN 33.6 pg (27.0-33.0); MEAN CORPUSCULAR HGB CONC 33.5 g/dl (32.0-36.5); MEAN CORPUSCULAR VOLUME 100.3 fl (80.0-96.0); PLATELET COUNT, AUTOMATED 144 10^3/uL (150-450); RED BLOOD COUNT 3.84 10^6/uL (4.00-5.40); WHITE BLOOD COUNT 7.3 10^3/uL (4.0-10.0)
[2021-10-28] MEDS: MAGNESIUM OXIDE 400MG TAB (MAG-OX) PO SCH (08:10)
[2021-10-28 08:30] LABS: BLOOD UREA NITROGEN 11 MG/DL (7-18); CALCIUM LEVEL 9.6 MG/DL (8.8-10.2); CARBON DIOXIDE LEVEL 30 MEQ/L (21-32); CHLORIDE LEVEL 97 MEQ/L (98-107); CREATININE FOR GFR 0.76 MG/DL (0.55-1.30); GLOMERULAR FILTRATION RATE > 60.0 (>45); GLUCOSE, FASTING 78 MG/DL (70-100); POTASSIUM SERUM 3.3 MEQ/L (3.5-5.1); SODIUM LEVEL 135 MEQ/L (136-145)
[2021-10-28] MEDS ORDERED: POTASSIUM CHLORIDE 10MEQ SR TABLET PO ONE (09:00)
[2021-10-28 18:42] VITALS: BP 107/61
[2021-10-28 20:00] VITALS: BP 125/73
[2021-10-29 04:00] VITALS: BP 116/75
[2021-10-29] MEDS: HEPARIN SOD (PORCINE) 5000UNITS/ML 1ML VIAL/SYRINGE SC SCH ×3 (06:03→22:22)
[2021-10-29] MEDS: LevoFLOXacin 500 MG TABLET PO SCH (06:03)
[2021-10-29] MEDS: MAGNESIUM OXIDE 400MG TAB (MAG-OX) PO SCH (07:38)
[2021-10-29 14:00] VITALS: BP 118/79
[2021-10-29 22:00] VITALS: BP 112/78
[2021-10-29] MEDS: ACETAMINOPHEN TAB 650MG DOSE (2X325MG) PO PRN (22:35)
[2021-10-30 06:00] VITALS: BP 120/85
[2021-10-30] MEDS: LevoFLOXacin 500 MG TABLET PO SCH (06:17)
[2021-10-30] MEDS: HEPARIN SOD (PORCINE) 5000UNITS/ML 1ML VIAL/SYRINGE SC SCH ×3 (06:18→21:45)
[2021-10-30 07:20] LABS: HEMATOCRIT 36.8 % (36.0-47.0); HEMOGLOBIN 12.4 g/dl (12.0-15.5); MEAN CORPUSCULAR HEMOGLOBIN 33.7 pg (27.0-33.0); MEAN CORPUSCULAR HGB CONC 33.7 g/dl (32.0-36.5); PLATELET COUNT, AUTOMATED 165 10^3/uL (150-450); RED BLOOD COUNT 3.68 10^6/uL (4.00-5.40); WHITE BLOOD COUNT 5.8 10^3/uL (4.0-10.0)
[2021-10-30 07:53] LABS: BLOOD UREA NITROGEN 12 MG/DL (7-18); CALCIUM LEVEL 9.3 MG/DL (8.8-10.2); CARBON DIOXIDE LEVEL 28 MEQ/L (21-32); CHLORIDE LEVEL 102 MEQ/L (98-107); CREATININE FOR GFR 0.69 MG/DL (0.55-1.30); GLOMERULAR FILTRATION RATE > 60.0 (>45); GLUCOSE, FASTING 91 MG/DL (70-100); MAGNESIUM LEVEL 1.8 MG/DL (1.8-2.4); SODIUM LEVEL 136 MEQ/L (136-145)
[2021-10-30] MEDS: MAGNESIUM OXIDE 400MG TAB (MAG-OX) PO SCH (09:02)
[2021-10-30 14:00] VITALS: BP 123/83
[2021-10-30] MEDS: ACETAMINOPHEN TAB 650MG DOSE (2X325MG) PO PRN ×2 (15:01→21:45)
[2021-10-30 20:00] VITALS: BP 119/83
[2021-10-31 04:00] VITALS: BP 128/80
[2021-10-31] MEDS: ACETAMINOPHEN TAB 650MG DOSE (2X325MG) PO PRN ×3 (04:55→20:39)
[2021-10-31] MEDS: HEPARIN SOD (PORCINE) 5000UNITS/ML 1ML VIAL/SYRINGE SC SCH ×3 (04:56→20:39)
[2021-10-31 07:20] LABS: HEMATOCRIT 35.2 % (36.0-47.0); HEMOGLOBIN 11.9 g/dl (12.0-15.5); MEAN CORPUSCULAR HEMOGLOBIN 34.1 pg (27.0-33.0); MEAN CORPUSCULAR HGB CONC 33.8 g/dl (32.0-36.5); MEAN CORPUSCULAR VOLUME 100.9 fl (80.0-96.0); PLATELET COUNT, AUTOMATED 164 10^3/uL (150-450); RED BLOOD COUNT 3.49 10^6/uL (4.00-5.40); WHITE BLOOD COUNT 5.9 10^3/uL (4.0-10.0)
[2021-10-31 07:42] LABS: BLOOD UREA NITROGEN 13 MG/DL (7-18); CALCIUM LEVEL 9.1 MG/DL (8.8-10.2); CARBON DIOXIDE LEVEL 28 MEQ/L (21-32); CHLORIDE LEVEL 102 MEQ/L (98-107); CREATININE FOR GFR 0.71 MG/DL (0.55-1.30); GLOMERULAR FILTRATION RATE > 60.0 (>45); GLUCOSE, FASTING 96 MG/DL (70-100); POTASSIUM SERUM 3.8 MEQ/L (3.5-5.1); SODIUM LEVEL 137 MEQ/L (136-145)
[2021-10-31] MEDS: MAGNESIUM OXIDE 400MG TAB (MAG-OX) PO SCH (08:46)
[2021-10-31 14:00] VITALS: BP 119/73
[2021-10-31 20:00] VITALS: BP 141/90
[2021-11-01] MEDS: ACETAMINOPHEN TAB 650MG DOSE (2X325MG) PO PRN ×2 (02:03→21:45)
[2021-11-01 04:09] VITALS: BP 148/82
[2021-11-01] MEDS: HEPARIN SOD (PORCINE) 5000UNITS/ML 1ML VIAL/SYRINGE SC SCH ×3 (05:34→21:44)
[2021-11-01 07:06] LABS: HEMATOCRIT 36.5 % (36.0-47.0); HEMOGLOBIN 12.3 g/dl (12.0-15.5); MEAN CORPUSCULAR HEMOGLOBIN 34.1 pg (27.0-33.0); MEAN CORPUSCULAR HGB CONC 33.7 g/dl (32.0-36.5); MEAN CORPUSCULAR VOLUME 101.1 fl (80.0-96.0); PLATELET COUNT, AUTOMATED 222 10^3/uL (150-450); RED BLOOD COUNT 3.61 10^6/uL (4.00-5.40); WHITE BLOOD COUNT 6.7 10^3/uL (4.0-10.0)
[2021-11-01 07:45] LABS: BLOOD UREA NITROGEN 20 MG/DL (7-18); CALCIUM LEVEL 9.5 MG/DL (8.8-10.2); CARBON DIOXIDE LEVEL 28 MEQ/L (21-32); CHLORIDE LEVEL 102 MEQ/L (98-107); CREATININE FOR GFR 0.71 MG/DL (0.55-1.30); GLOMERULAR FILTRATION RATE > 60.0 (>45); GLUCOSE, FASTING 83 MG/DL (70-100); MAGNESIUM LEVEL 2.1 MG/DL (1.8-2.4); POTASSIUM SERUM 3.5 MEQ/L (3.5-5.1); SODIUM LEVEL 138 MEQ/L (136-145)
[2021-11-01] MEDS: MAGNESIUM OXIDE 400MG TAB (MAG-OX) PO SCH (09:16)
[2021-11-01 21:00] VITALS: BP 160/96
[2021-11-02] MEDS: HEPARIN SOD (PORCINE) 5000UNITS/ML 1ML VIAL/SYRINGE SC SCH ×3 (05:43→21:22)
[2021-11-02 05:47] VITALS: BP 148/94
[2021-11-02 08:00] LABS: HEMATOCRIT 35.4 % (36.0-47.0); MEAN CORPUSCULAR HEMOGLOBIN 34.7 pg (27.0-33.0); MEAN CORPUSCULAR HGB CONC 33.9 g/dl (32.0-36.5); MEAN CORPUSCULAR VOLUME 102.3 fl (80.0-96.0); PLATELET COUNT, AUTOMATED 239 10^3/uL (150-450); RED BLOOD COUNT 3.46 10^6/uL (4.00-5.40); WHITE BLOOD COUNT 5.5 10^3/uL (4.0-10.0)
[2021-11-02 08:13] LABS: BLOOD UREA NITROGEN 16 MG/DL (7-18); CALCIUM LEVEL 9.2 MG/DL (8.8-10.2); CARBON DIOXIDE LEVEL 29 MEQ/L (21-32); CHLORIDE LEVEL 104 MEQ/L (98-107); CREATININE FOR GFR 0.66 MG/DL (0.55-1.30); GLOMERULAR FILTRATION RATE > 60.0 (>45); GLUCOSE, FASTING 98 MG/DL (70-100); MAGNESIUM LEVEL 2.3 MG/DL (1.8-2.4); POTASSIUM SERUM 3.9 MEQ/L (3.5-5.1); SODIUM LEVEL 140 MEQ/L (136-145)
[2021-11-02] MEDS: MAGNESIUM OXIDE 400MG TAB (MAG-OX) PO SCH (08:46)
[2021-11-02] MEDS: ACETAMINOPHEN TAB 650MG DOSE (2X325MG) PO PRN ×2 (08:48→20:42)
[2021-11-02] MEDS: SENOKOT S TAB PO SCH ×2 (09:00→20:40)
[2021-11-02 14:36] VITALS: BP 138/90
[2021-11-02 20:00] VITALS: BP 125/91
[2021-11-03 04:00] VITALS: BP 151/72
[2021-11-03] MEDS: HEPARIN SOD (PORCINE) 5000UNITS/ML 1ML VIAL/SYRINGE SC SCH ×3 (06:02→22:01)
[2021-11-03] MEDS ORDERED: ALENDRONATE 35MG TABLET PO SCH (07:00)
[2021-11-03 07:42] LABS: HEMATOCRIT 35.7 % (36.0-47.0); HEMOGLOBIN 11.8 g/dl (12.0-15.5); MEAN CORPUSCULAR HEMOGLOBIN 34.3 pg (27.0-33.0); MEAN CORPUSCULAR HGB CONC 33.1 g/dl (32.0-36.5); MEAN CORPUSCULAR VOLUME 103.8 fl (80.0-96.0); PLATELET COUNT, AUTOMATED 258 10^3/uL (150-450); RED BLOOD COUNT 3.44 10^6/uL (4.00-5.40); WHITE BLOOD COUNT 7.4 10^3/uL (4.0-10.0)
[2021-11-03 08:02] LABS: BLOOD UREA NITROGEN 16 MG/DL (7-18); CALCIUM LEVEL 9.2 MG/DL (8.8-10.2); CARBON DIOXIDE LEVEL 28 MEQ/L (21-32); CHLORIDE LEVEL 105 MEQ/L (98-107); CREATININE FOR GFR 0.57 MG/DL (0.55-1.30); GLOMERULAR FILTRATION RATE > 60.0 (>45); GLUCOSE, FASTING 95 MG/DL (70-100); MAGNESIUM LEVEL 2.2 MG/DL (1.8-2.4); POTASSIUM SERUM 4.2 MEQ/L (3.5-5.1); SODIUM LEVEL 140 MEQ/L (136-145)
[2021-11-03] MEDS: SENOKOT S TAB PO SCH ×2 (08:12→21:00)
[2021-11-03] MEDS: MAGNESIUM OXIDE 400MG TAB (MAG-OX) PO SCH (08:13)
[2021-11-03] MEDS: ACETAMINOPHEN TAB 650MG DOSE (2X325MG) PO PRN ×2 (12:32→22:05)
[2021-11-03 13:52] VITALS: BP 168/84
[2021-11-03 20:00] VITALS: BP 163/73
[2021-11-04 04:00] VITALS: BP 128/80
[2021-11-04] MEDS: HEPARIN SOD (PORCINE) 5000UNITS/ML 1ML VIAL/SYRINGE SC SCH (06:28)
[2021-11-04 07:25] LABS: HEMATOCRIT 35.6 % (36.0-47.0); HEMOGLOBIN 11.9 g/dl (12.0-15.5); MEAN CORPUSCULAR HEMOGLOBIN 34.7 pg (27.0-33.0); MEAN CORPUSCULAR HGB CONC 33.4 g/dl (32.0-36.5); MEAN CORPUSCULAR VOLUME 103.8 fl (80.0-96.0); PLATELET COUNT, AUTOMATED 266 10^3/uL (150-450); RED BLOOD COUNT 3.43 10^6/uL (4.00-5.40); WHITE BLOOD COUNT 6.7 10^3/uL (4.0-10.0)
[2021-11-04 07:53] LABS: BLOOD UREA NITROGEN 15 MG/DL (7-18); CALCIUM LEVEL 9.2 MG/DL (8.8-10.2); CARBON DIOXIDE LEVEL 24 MEQ/L (21-32); CHLORIDE LEVEL 108 MEQ/L (98-107); CREATININE FOR GFR 0.76 MG/DL (0.55-1.30); GLOMERULAR FILTRATION RATE > 60.0 (>45); GLUCOSE, FASTING 97 MG/DL (70-100); MAGNESIUM LEVEL 2.4 MG/DL (1.8-2.4); POTASSIUM SERUM 4.2 MEQ/L (3.5-5.1); SODIUM LEVEL 141 MEQ/L (136-145)
[2021-11-04] MEDS ORDERED: DOCUSATE SODIUM 100MG CAPSULE PO SCH (09:00)
[2021-11-04] MEDS: ACETAMINOPHEN TAB 650MG DOSE (2X325MG) PO PRN (09:16)
[2021-11-04] MEDS: MAGNESIUM OXIDE 400MG TAB (MAG-OX) PO SCH (09:16)
[2021-11-04] MEDS ORDERED: COLA100C5 PO (11:31)
[2021-11-04] MEDS ORDERED: ALEN35TA56 PO (11:31)
== END 2021-11-04 15:44 | DRG 542 ==
LOC: EDBD 10:43 → M ED 10:43 → M ED INP 10:49 → ENRESERV 22:13 → M 4MAIN 10-25 02:53 → OBSVTOIN 10-25 09:56
PROVIDERS: ADMIT Family Medicine; ATTEND Family Medicine
DX: M84.454A Pathological fracture, pelvis, initial encounter for fracture (principal); U07.1 COVID-19; N39.0 Urinary tract infection, site not specified; E87.2 Acidosis; E87.6 Hypokalemia; E83.42 Hypomagnesemia; R63.4 Abnormal weight loss; B96.29 Other Escherichia coli [E. coli] as the cause of diseases classified elsewhere; Z88.2 Allergy status to sulfonamides; Z87.891 Personal history of nicotine dependence

== ENCOUNTER 2021-11-04 12:40 | Inpatient (IN) | payer MEDICARE, MEDICAID ==
[~2021-11-04] VITALS: Ht 172.7 cm; Wt 65.5 kg
[~2021-11-04 12:40] MED LIST changes: +ALEN35TA56 PO; +COLA100C5 PO; +FLON1SPR; -ISOVUE-370 76% 100ML VIAL As Ordered ONE
[2021-11-04 15:00] VITALS: BP 135/60
--- OUTSIDE RECORDS SUMMARY | 2021-11-04 15:24 | CCD ---
Author Author [facility] Organization [facility] Address Unknown Phone Unavailable Care Team Providers Care Computer Lab Assistant Name Role Phone PACKADARSH MD Unavailable Unavailable PACKADARSH MD Unavailable Unavailable PACKADARSH MD Unavailable Unavailable Re-disclosure Warning The records that you are about to access may contain information from federally-assisted alcohol or drug abuse programs. If such information is present, then the following federally mandated warning applies: This information has been disclosed to you from records protected by federal confidentiality rules (42 CFR part 2). The federal rules prohibit you from making any further disclosure of this information unless further disclosure is expressly permitted by the written consent of the person to whom it pertains or as otherwise permitted by 42 CFR part 2. A general authorization for the release of medical or other information is NOT sufficient for this purpose. The Federal rules restrict any use of the information to criminally investigate or prosecute any alcohol or drug abuse patient.The records that you are about to access may contain highly sensitive health information, the redisclosure of which is protected by Article 27-F of the [facility] Public Health law. If you continue you may have access to information: Regarding HIV / AIDS; Provided by facilities licensed or operated by the [facility] Office of Mental Health; or Provided by the [facility] Office for People With Developmental Disabilities. If such information is present, then the following [facility] mandated warning applies: This information has been disclosed to you from confidential records which are protected by state law. State law prohibits you from making any further disclosure of this information without the specific written consent of the person to whom it pertains, or as otherwise permitted by law. Any unauthorized further disclosure in violation of state law may result in a fine or detention sentence or both. A general authorization for the release of medical or other information is NOT sufficient authorization for further disc losure. Family History Family Member Name Family Member Gender Family Member Status Date o f Status Description Data Source(s) Unknown Unknown Problem MEDENT ([facility]) Encounters Encounter Providers Location Date Indications Data Source(s ) Unknown [address] [facility] [address] 10/12/2021 12:00:00 AM EST eCW1 ([facility]) Office Visit Attender: ADARSH Wallace/Merrill/Ashwin/ Doni 10/10/2021 02:00:00 PM EST MEDENT ([facility]) [place] [address] [facility] [address] 10/08/2021 12:00:00 AM EST eCW1 ([facility]) Office Visit Attender: ADARSH Wallace/Merrill/Ashwin/ Doni 10/02/2021 10:00:00 AM EST MEDENT ([facility]) Office Visit Attender: ADARSH Marion 09/24/2021 02:00:00 PM EDT MEDENT ([facility]) [place] [address] [facility] [address] 09/11/2021 12:00:00 AM EDT eCW1 ([facility]) Office Visit Attender: ADARSH Wallace/Merrill/Ashwin/ Reindl 09/03/2021 10:30:00 AM EDT MEDENT ([facility]) Outpatient [address] [facility] [address] 09/02/2021 12:00:00 AM EDT eCW1 ([facility]) Unknown [address] [facility] [address] 08/20/2021 12:00:00 AM EDT eCW1 ([facility]) Outpatient [address] [facility] [address] 08/19/2021 12:00:00 AM EDT eCW1 ([facility]) Unknown [address] [facility] [address] 08/16/2021 12:00:00 AM EDT eCW1 ([facility]) Unknown [address] [facility] [address] 08/15/2021 12:00:00 AM EDT eCW1 ([facility]) Unknown [address] [facility] [address] 08/15/2021 12:00:00 AM EDT eCW1 ([facility]) Outpatient Attender: ADARSH Wallace/Merrill/Ashwin/ Reindl 08/14/2021 09:00:00 AM EDT MED[facility] ([facility]) [place] [address] [facility] [address] 08/14/2021 12:00:00 AM EDT eCW1 ([facility]) Outpatient [address] [facility] [address] 08/13/2021 12:00:00 AM EDT eCW1 ([facility]) Unknown [address] [facility] [address] 08/13/2021 12:00:00 AM EDT eCW1 ([facility]) Unknown [address] [facility] [address] 08/13/2021 12:00:00 AM EDT eCW1 ([facility]) Unknown [address] [facility] [address] 08/06/2021 12:00:00 AM EDT [facility] [place] [address] [facility] [address] 06/21/2021 12:00:00 AM EDT [facility]CW1 [facility] [place] [address] [facility] [address] 03/04/2021 12:00:00 AM EDT [facility]CW1 [facility] [place] [address] [facility] [address] 02/25/2021 12:00:00 AM EDT eCW1 ([facility] Unknown [address] [facility] [address] 02/18/2021 12:00:00 AM EDT eCW1 ([facility]) Outpatient [address] [facility] [address] 02/13/2021 12:00:00 AM EDT [facility]CW1 [facility] [place] [address] [facility] [address] 02/13/2021 12:00:00 AM EDT eCW1 ([facility] Unknown [address] [facility] [address] 01/18/2021 12:00:00 AM EST eCW1 ([facility]) Unknown [address] [facility] [address] 10/25/2020 12:00:00 AM EST [facility]CW1 ([facility] [place] [address] [facility] [address] 10/04/2020 12:00:00 AM EST eCW1 ([facility]) Immunizations Vaccine Date Status Description Data Source(s) COVID-19 VACCINE Moderna 07/12/2021 12:00:00 AM EDT completed [facility] Vaccine Series Complete: YESThis Data wa s Submitted to [facility]. COVID-19 VACCINE Moderna 06/14/2021 12:00:00 AM EDT completed [facility] Vaccine Series Complete: NOThis Data was Submitted to [facility]. pneumococcal polysaccharide PPV23 02/13/2021 01:26:00 PM EDT comple mark eCW1 ([facility]) pneumococcal polysaccharide PPV23 02/13/2021 01:26:00 PM EDT comple mark eCW1 ([facility]) pneumococcal polysaccharide PPV23 02/13/2021 01:26:00 PM EDT comple mark eCW1 ([facility]) pneumococcal polysaccharide PPV23 02/13/2021 01:26:00 PM EDT comple mark eCW1 ([facility]) pneumococcal polysaccharide PPV23 02/13/2021 01:26:00 PM EDT comple mark eCW1 ([facility]) pneumococcal polysaccharide PPV23 02/13/2021 01:26:00 PM EDT comple mark eCW1 ([facility]) pneumococcal polysaccharide PPV23 02/13/2021 01:26:00 PM EDT comple mark eCW1 ([facility]) pneumococcal polysaccharide PPV23 02/13/2021 01:26:00 PM EDT comple mark eCW1 ([facility]) pneumococcal polysaccharide PPV23 02/13/2021 01:26:00 PM EDT comple mark eCW1 ([facility]) pneumococcal polysaccharide PPV23 02/13/2021 01:26:00 PM EDT comple mark eCW1 ([facility]) pneumococcal polysaccharide PPV23 02/13/2021 01:26:00 PM EDT comple mark eCW1 ([facility]) pneumococcal polysaccharide PPV23 02/13/2021 01:26:00 PM EDT comple mark eCW1 ([facility]) pneumococcal polysaccharide PPV23 02/13/2021 01:26:00 PM EDT comple mark eCW1 ([facility]) pneumococcal polysaccharide PPV23 02/13/2021 01:26:00 PM EDT comple mark eCW1 ([facility]) pneumococcal polysaccharide PPV23 02/13/2021 01:26:00 PM EDT comple mark eCW1 ([facility]) pneumococcal polysaccharide PPV23 02/13/2021 01:26:00 PM EDT comple mark eCW1 ([facility]) pneumococcal polysaccharide PPV23 02/13/2021 01:26:00 PM EDT comple mark eCW1 ([facility]) pneumococcal polysaccharide PPV23 02/13/2021 01:26:00 PM EDT comple mark eCW1 ([facility]) pneumococcal polysaccharide PPV23 02/13/2021 01:26:00 PM EDT comple mark eCW1 ([facility]) pneumococcal polysaccharide PPV23 02/13/2021 01:26:00 PM EDT comple mark eCW1 ([facility]) Medications Medication Brand Name Start Date Product Form Dose Route Admi nistrative Instructions Pharmacy Instructions Status Indications Reaction Description Data Source(s) Cephalexin 500 MG Oral Capsule Cephalexin 09/24/2021 12:00:00 AM EDT ORAL completed MEDENT ([facility] ) Cephalexin 500 MG Oral Capsule CEPHALEXIN 09/24/2021 12:00:00 AM EDT capsule 14 TAKE ONE CAPSULE BY MOUTH TWICE A DAY DIRECTED MAXI MUM DAILY DOSE = 2 TAKE ONE CAPSULE BY MOUTH TWICE A DAY DIRECTED MAXIMUM DAILY DOSE = 2 SOLD: 09/25/2021 [facility] 20 mg 06/22/2021 12:00:00 AM EDT tablet 90 TAKE ONE TABLET BY MOUTH EVERY DAY TAKE ONE TABLET BY MOUTH EVERY DAY SOLD: 06/22/2021 [facility] Lisinopril 20 MG Oral Tablet LISINOPRIL 02/28/2021 12:00:00 AM EDT tab let 90 TAKE ONE TABLET BY MOUTH EVERY DAY TAKE ONE TABLET BY MOUTH EVERY DAY SOLD: 02/28/2021 [facility] 20 mEq 02/19/2021 12:00:00 AM EDT tablet,ER particles/cry stals 30 TAKE ONE TABLET BY MOUTH TWICE A DAY TAKE ONE TABLET BY MOUTH TWICE A DAY SOLD: 02/19/2021 [facility] Potassium Chloride 20 MEQ UNK 02/18/2021 12:00:00 AM EDT suspended Potassium Chloride 20 MEQ W1 ([facility]) Potassium Chloride 20 MEQ UNK 02/18/2021 12:00:00 AM EDT suspended Potassium Chloride 20 MEQ eCW1 ([facility]) Potassium Chloride 20 MEQ UNK 02/18/2021 12:00:00 AM EDT suspended Potassium Chloride 20 MEQ eCW1 ([facility]) Potassium Chloride 20 MEQ UNK 02/18/2021 12:00:00 AM EDT active Potassium Chloride 20 MEQ eCW1 ([facility]) Potassium Chloride 20 MEQ UNK 02/18/2021 12:00:00 AM EDT active Potassium Chloride 20 MEQ eCW1 ([facility]) Potassium Chloride 20 MEQ UNK 02/18/2021 12:00:00 AM EDT active Potassium Chloride 20 MEQ eCW1 ([facility]) Potassium Chloride 20 MEQ UNK 02/18/2021 12:00:00 AM EDT active Potassium Chloride 20 MEQ eCW1 ([facility]) Potassium Chloride 20 MEQ UNK 02/18/2021 12:00:00 AM EDT active Potassium Chloride 20 MEQ eCW1 ([facility]) Potassium Chloride 20 MEQ UNK 02/18/2021 12:00:00 AM EDT active Potassium Chloride 20 MEQ eCW1 ([facility]) Potassium Chloride 20 MEQ UNK 02/18/2021 12:00:00 AM EDT active Potassium Chloride 20 MEQ eCW1 ([facility]) Potassium Chloride 20 MEQ UNK 02/18/2021 12:00:00 AM EDT active Potassium Chloride 20 MEQ eCW1 ([facility]) Potassium Chloride 20 MEQ UNK 02/18/2021 12:00:00 AM EDT active Potassium Chloride 20 MEQ eCW1 ([facility]) Potassium Chloride 20 MEQ UNK 02/18/2021 12:00:00 AM EDT active Potassium Chloride 20 MEQ eCW1 ([facility]) Potassium Chloride 20 MEQ UNK 02/18/2021 12:00:00 AM EDT suspended Potassium Chloride 20 MEQ eCW1 ([facility]) Potassium Chloride 20 MEQ UNK 02/18/2021 12:00:00 AM EDT suspended Potassium Chloride 20 MEQ eCW1 ([facility]) Potassium Chloride 20 MEQ UNK 02/18/2021 12:00:00 AM EDT suspended Potassium Chloride 20 MEQ eCW1 ([facility]) Potassium Chloride 20 MEQ UNK 02/18/2021 12:00:00 AM EDT active Potassium Chloride 20 MEQ eCW1 ([facility]) Potassium Chloride 20 MEQ UNK 02/18/2021 12:00:00 AM EDT suspended Potassium Chloride 20 MEQ eCW1 ([facility]) 50 mcg/actuation 02/13/2021 12:00:00 AM EDT spray,suspension 16 SPRAY ONE SPRAY IN EACH NOSTRIL EVERY DAY SPRAY ONE SPRAY IN EACH NOSTRIL EVERY DAY SOLD: 02/19/2021 [facility] 50 mcg/actuation 02/13/2021 12:00:00 AM EDT spray,suspension 16 SPRAY ONE SPRAY IN EACH NOSTRIL EVERY DAY SPRAY ONE SPRAY IN EACH NOSTRIL EVERY DAY SOLD: 06/22/2021 [facility] 20 mg 01/19/2021 12:00:00 AM EST tablet 30 TAKE ONE TABLET BY MOUTH EVERY DAY TAKE ONE TABLET BY MOUTH EVERY DAY SOLD: 01/20/2021 [facility] 20 mg 10/05/2020 12:00:00 AM EST tablet 90 TAKE ONE TABLET BY MOUTH EVERY DAY TAKE ONE TABLET BY MOUTH EVERY DAY SOLD: 10/05/2020 [facility] Insurance Providers Payer name Policy type / Coverage type Policy ID Covered constitution party ID Covered constitution party's relationship to hammond Policy Hammond Plan Information [facility] COMMUN[facility] [place] [facility] [id number] SP [id number] MEDICARE [id number] SP [id number] [place]ED[place] [id number] SP [id number] [facility] COMMUNITY [facility] [id number] SP [id number] MEDICARE C [id number] S [id number] [facility] O [id number] S [id number] MEDICAID [id number] SP [id number] ANSI-Medicare Part B [id number] ANSI-Medicaid [id number] ANSI-Medicaid [id number] ANSI-Medicaid [id number] ANSI-Medicare Part B [id number] ANSI-Medicaid [id number] ANSI-Medicaid [id number] ANSI-Medicaid [id number] ANSI-Medicare Part B [id number] ANSI-Medicaid [id number] ANSI-Medicare Part B [id number] ANSI-Medicaid [id number] ANSI-Medicaid [id number] ANSI-Medicaid [id number] ANSI-Medicare Part B [id number] ANSI-Medicaid [id number] ANSI-Medicaid [id number] ANSI-Medicare Part B [id number] ANSI-Medicaid [id number] ANSI-Medicaid [id number] [facility] COMM[employer] [facility]AN [place] [facility] [place] [facility] [id number] SP [id number] [facility] Part B [id number] Self [id number] Cancer Services Program Commercial [id number] Self [id number] [facility] Health Maintenance Organization (HMO) [id number] Self 1 [id number] [facility] [id number] SP [id number] SELF PAY UNAVAILABLE SP UNAVAILA BLE WELLNESS CONNECTION [id number] [facility] MEDICAID [id number] SP [id number] Problems, Conditions, and Diagnoses Code Display Name Description Problem Type Effective Dates Data Source(s) R27.8 [id number] Decreased coordination Problem 09/25/2021 12 :00:00 AM EDT eCW1 ([facility]) R91.1 [id number] Lung nodule Problem 09/25/2021 12:00:00 AM E DT eCW1 ([facility]) L97.311 [id number] Skin ulcer of right ankle, limit ed to breakdown of skin Problem 09/25/2021 12:00:00 AM EDT eCW1 ([facility]) R93.89 150209024 Abnormal CXR Problem 09/11/2021 12:00:00 AM EDT eCW1 ([facility]) R20.2 [id number] Paresthesia of finger Problem 09/02/2021 12: 00:00 AM EDT eCW1 ([facility]) D75.89 110584099 Macrocytosis without anemia Problem 08/18/20 12:00:00 AM EDT eCW1 ([facility]) E83.42 057244392 Hypomagnesemia Problem 08/15/2021 12:00:00 A M EDT eCW1 ([facility]) [id number] Essential hypertension Essential hypertension Problem 08/14/2021 12:00:00 AM EDT MEDENT ([facility] ) F17.211 [id number] Cigarette nicotine dependence in remissio n Problem 08/13/2021 12:00:00 AM EDT eCW1 ([facility]) Surgeries/Procedures Procedure Description Date Indications Data Source(s) CLTX DSTL FIBULAR FX LAT MALLS W/O MANJ 08/14/2021 12: 00:00 AM EDT MEDENT ([facility], ) OFFICE OUTPATIENT NEW 45 MINUTES 08/14/2021 12:00:00 A M EDT MEDENT ([facility], ) PNEUMOCOCCAL POLYSAC VACCINE 23-V 2 />YR SUBQ/IM 02/13 12:00:00 AM EDT eCW1 ([facility]) Results ID Date Data Source [id number] 10/24/2021 05:36:00 PM EST [facility] Name Value Range Interpretation Code Description Data Sushma rce(s) Supporting Document(s) SARS coronavirus 2 RNA [Presence] in Res piratory specimen by ELA with probe detection POSITIVE [facility] This lab was ordered by [facility] a nd reported by [facility]. ID Date Data Source [id number] [id number] 08/19/2021 12:00:00 AM EDT eCW1 ([facility]) Name Value Range Interpretation Code Description Data Sushma rce(s) Supporting Document(s) 2.1 FOLATE eCW1 ([facility]) 459 VITAMIN B12 LEVEL eCW1 ([facility]) ID Date Data Source Basic Metabolic Profile (BMP) 08/19/2021 12:00:00 AM EDT eCW 1 ([facility]) Name Value Range Interpretation Code Description Data Sushma rce(s) Supporting Document(s) 5 7-18 BLOOD UREA NITROGEN eCW1 ([facility]) 0.87 0.55-1.30 CREATININE FOR GFR eCW1 ([facility]) 118 70-100 GLUCOSE, FASTING eCW1 ([facility]) 3.6 3.5-5.1 POTASSIUM SERUM eCW1 ([facility]) 136 136-145 SODIUM LEVEL eCW1 ([facility] access hospital) 99 98-107 CHLORIDE LEVEL eCW1 ([facility]) 29 21-32 CARBON DIOXIDE LEVEL eCW1 ([facility]) > 60.0 >45 GLOMERULAR FILTRATION RATE eCW 1 ([facility]) 8.6 8.8-10.2 CALCIUM LEVEL eCW1 ([facility]) ID Date Data Source CBC - Complete Blood Count 08/19/2021 12:00:00 AM EDT eCW1 ( [facility]) Name Value Range Interpretation Code Description Data Sushma rce(s) Supporting Document(s) 5.9 4.0-10.0 WHITE BLOOD COUNT eCW1 ([facility]) 13.1 12.0-15.5 HEMOGLOBIN eCW1 ([facility]) 3.86 4.00-5.40 RED BLOOD COUNT eCW1 ([facility]) 38.8 36.0-47.0 HEMATOCRIT eCW1 ([facility]) 33.8 32.0-36.5 MEAN CORPUSCULAR HGB CONC eCW1 ([facility]) 12.9 11.5-14.5 RED CELL DISTRIBUTION WID TH eCW1 ([facility]) 33.9 27.0-33.0 MEAN CORPUSCULAR HEMOGLOB IN eCW1 ([facility]) 100.5 80.0-96.0 MEAN CORPUSCULAR VOLUME e CW1 ([facility]) 190 150-450 PLATELET COUNT, AUTOMATED eCW1 ([facility]) ID Date Data Source [id number] 08/14/2021 05:59:00 PM EDT [facility] Name Value Range Interpretation Code Description Data Sushma rce(s) Supporting Document(s) SARS-CoV-2 (COVID 19) NEGATIVE - SARS-CoV-2 (COVID19) [facility] This lab was ordered by [facility] a nd reported by [facility]. ID Date Data Source TSH 08/13/2021 12:00:00 AM EDT eCW1 ([facility]) Name Value Range Interpretation Code Description Data Sushma rce(s) Supporting Document(s) 2.390 0.358-3.740 THYROID STIMULATING HORM ONE eCW1 ([facility]) ID Date Data Source [id number] 08/13/2021 12:00:00 AM EDT eCW1 ([facility]) Name Value Range Interpretation Code Description Data Sushma rce(s) Supporting Document(s) Hemoglobin A1c/Hemoglobin.total in Blood 6.0 HEMOGLOBIN A1c eCW1 ([facility]) ID Date Data Source ERYTHROCYTE SEDIMENTATION RATE 08/13/2021 12:00:00 AM EDT eC W1 ([facility]) Name Value Range Interpretation Code Description Data Sushma rce(s) Supporting Document(s) 29 0-30 ERYTHROCYTE SEDIMENTATION RATE eCW1 ([facility]) ID Date Data Source C REACTIVE PROTEIN QUANTITATIV (At [facility]) 08/13/2021 12:00 :00 AM EDT eCW1 ([facility]) Name Value Range Interpretation Code Description Data Sushma rce(s) Supporting Document(s) 2.85 0.00-0.30 C REACTIVE PROTEIN QUANTI TATIV eCW1 ([facility]) ID Date Data Source Comprehensive Metabolic Profile (CMP) 08/13/2021 12:00:00 AM EDT eCW1 ([facility]) Name Value Range Interpretation Code Description Data Sushma rce(s) Supporting Document(s) 118 70-100 GLUCOSE, FASTING eCW1 ([facility]) 36.6 >45 GLOMERULAR FILTRATION RATE eCW 1 ([facility]) 1.51 0.55-1.30 CREATININE FOR GFR eCW1 ([facility]) 134 136-145 SODIUM LEVEL eCW1 (Critical access hospital) 17 7-18 BLOOD UREA NITROGEN eCW1 ([facility]) 33 21-32 CARBON DIOXIDE LEVEL eCW1 ([facility]) 92 98-107 CHLORIDE LEVEL eCW1 ([facility]) 9.5 8.8-10.2 CALCIUM LEVEL eCW1 ([facility]) 3.3 3.5-5.1 POTASSIUM SERUM eCW1 ([facility]) 30 12-78 ALT/SGPT eCW1 ([facility]) 62 45-117 ALKALINE PHOSPHATASE eCW1 ([facility]) 23 7-37 AST/SGOT eCW1 ([facility]) 1.1 0.2-1.0 BILIRUBIN,TOTAL eCW1 ([facility]) 3.3 3.2-5.2 ALBUMIN eCW1 ([facility]) 7.0 6.4-8.2 TOTAL PROTEIN eCW1 ([facility]) 0.9 1.2-2.2 ALBUMIN/GLOBULIN RATIO eCW1 ([facility]) ID Date Data Source CBC with Differential 08/13/2021 12:00:00 AM EDT eCW1 ([facility]) Name Value Range Interpretation Code Description Data Sushma rce(s) Supporting Document(s) 8.6 4.0-10.0 WHITE BLOOD COUNT eCW1 ([facility]) 4.16 4.00-5.40 RED BLOOD COUNT eCW1 ([facility]) 14.1 12.0-15.5 HEMOGLOBIN eCW1 ([facility] [facility] 41.7 36.0-47.0 HEMATOCRIT eCW1 ([facility]) 33.9 27.0-33.0 MEAN CORPUSCULAR HEMOGLOB IN eCW1 ([facility]) 33.8 32.0-36.5 MEAN CORPUSCULAR HGB CONC eCW1 ([facility]) 100.2 80.0-96.0 MEAN CORPUSCULAR VOLUME e CW1 ([facility]) 12.9 11.5-14.5 RED CELL DISTRIBUTION WID TH eCW1 ([facility]) 59.1 36.0-66.0 NEUTROPHILS % eCW1 ([facility]) 239 150-450 PLATELET COUNT, AUTOMATED eCW1 ([facility]) 0.7 0.0-1.0 BASO % eCW1 ([facility]) 0.7 0.0-3.0 EOS % eCW1 ([facility]) 7.5 2.0-8.0 MONO % eCW1 ([facility]) 31.5 24.0-44.0 LYMPH % eCW1 ([facility]) 0.1 0.0-0.2 BASO # eCW1 ([facility]) 2.7 1.5-5.0 LYMPH # eCW1 ([facility]) 0.6 0.0-0.8 MONO # eCW1 ([facility]) 0.1 0.0-0.5 EOS # eCW1 ([facility]) 5.1 1.5-8.5 NEUTROPHILS # eCW1 ([facility]) ID Date Data Source LIPID PANEL (CARDIAC RISK) 02/13/2021 12:00:00 AM EDT eCW1 ( [facility]) Name Value Range Interpretation Code Description Data Sushma rce(s) Supporting Document(s) Cholesterol [Moles/volume] in Serum or Plasma 184 <200 CHOLESTEROL LEVEL eCW1 ([facility]) Cholesterol in HDL [Moles/volume] in Serum or Plasma 42 >40 HDL CHOLESTEROL eCW1 ([facility]) Triglyceride [Mass/volume] in Serum or Plasma by calculation 183 <150 TRIGLYCERIDES LEVEL eCW1 ([facility]) 142 NON-HDL-C eCW1 ([facility]) Cholesterol in LDL [Mass/volume] in Serum or Plasma by calculation 105 <100 LDL CHOLESTEROL eCW1 ([facility]) 4.380 <5 CHOLESTEROL RISK RATIO eCW1 ([facility]) Procedure Social History Code Duration Value Status Description Data Source(s ) Smoking 09/25/2021 12:00:00 AM EDT Former Smoker completed Former Smoker eCW1 ([facility]) Smoking 09/25/2021 12:00:00 AM EDT Former Smoker completed Former Smoker eCW1 ([facility]) Smoking 09/08/2021 12:00:00 AM EDT Former Smoker completed Former Smoker eCW1 ([facility]) Smoking 09/02/2021 12:00:00 AM EDT Former Smoker completed Former Smoker eCW1 ([facility]) Smoking 08/19/2021 12:00:00 AM EDT Former Smoker completed Former Smoker eCW1 ([facility]) Smoking 08/19/2021 12:00:00 AM EDT Former Smoker completed Former Smoker eCW1 ([facility]) Smoking 08/13/2021 12:00:00 AM EDT Former Smoker completed Former Smoker eCW1 ([facility]) Smoking 08/13/2021 12:00:00 AM EDT Former Smoker completed Former Smoker eCW1 ([facility]) Smoking 08/13/2021 12:00:00 AM EDT Former Smoker completed Former Smoker eCW1 ([facility]) Smoking 08/13/2021 12:00:00 AM EDT Former Smoker completed Former Smoker eCW1 ([facility]) Smoking 08/13/2021 12:00:00 AM EDT Former Smoker completed Former Smoker eCW1 ([facility]) Smoking 08/13/2021 12:00:00 AM EDT Former Smoker completed Former Smoker eCW1 ([facility]) Smoking 08/13/2021 12:00:00 AM EDT Former Smoker completed Former Smoker eCW1 ([facility]) Smoking 02/13/2021 12:00:00 AM EDT Former Smoker completed Former Smoker eCW1 ([facility]) Smoking 02/13/2021 12:00:00 AM EDT Former Smoker completed Former Smoker eCW1 ([facility]) Smoking 02/13/2021 12:00:00 AM EDT Former Smoker completed Former Smoker eCW1 ([facility]) Smoking 02/13/2021 12:00:00 AM EDT Former Smoker completed Former Smoker eCW1 ([facility]) Smoking 02/13/2021 12:00:00 AM EDT Former Smoker completed Former Smoker eCW1 ([facility]) Smoking 02/13/2021 12:00:00 AM EDT Former Smoker completed Former Smoker eCW1 ([facility]) Smoking 02/13/2021 12:00:00 AM EDT Former Smoker completed Former Smoker eCW1 ([facility]) Vital Signs ID Date Data Source UNK Name Value Range Interpretation Code Description Data Source(s) Body temperature 96.4 [degF] 96.4 [degF] MEDENT ([facility], ) Body temperature 97.0 [degF] 97.0 [degF] MEDENT ([facility], ) Body weight 151 [lb_av] 151 [lb_av] eCW1 ([facility]) Body height 68.5 [in_i] 68.5 [in_i] eCW1 ([facility]) Body mass index (BMI) [Ratio] 22.62 kg/m2 22.62 kg/m2 eCW1 ([facility]) Heart rate 120 /min 120 /min eCW1 ([facility]) Respiratory rate 18 /min 18 /min eCW1 ([facility]) Body temperature 96.2 [degF] 96.2 [degF] eCW1 ( [facility]) Systolic blood pressure 120 mm[Hg] 120 mm[Hg] e CW1 ([facility]) Diastolic blood pressure 78 mm[Hg] 78 mm[Hg] eCW1 ([facility]) Body weight 159 [lb_av] 159 [lb_av] eCW1 ([facility]) Body weight 72.12 kg 72.12 kg eCW1 ([facility]) Body height 68.5 [in_i] 68.5 [in_i] eCW1 ([facility]) Body mass index (BMI) [Ratio] 23.82 kg/m2 23.82 kg/m2 W1 ([facility]) Heart rate 112 /min 112 /min eCW1 ([facility]) Respiratory rate 18 /min 18 /min eCW1 ([facility]) Body temperature 96.3 [degF] 96.3 [degF] eCW1 ( [facility]) Systolic blood pressure 130 mm[Hg] 130 mm[Hg] e CW1 ([facility]) Diastolic blood pressure 84 mm[Hg] 84 mm[Hg] eCW1 ([facility]) Body weight 157 [lb_av] 157 [lb_av] eCW1 ([facility]) Body height 68.5 [in_i] 68.5 [in_i] eCW1 ([facility]) Body mass index (BMI) [Ratio] 23.52 kg/m2 23.52 kg/m2 eCW1 ([facility]) Heart rate 83 /min 83 /min eCW1 ([facility]) Respiratory rate 18 /min 18 /min eCW1 ([facility]) Body temperature 96.5 [degF] 96.5 [degF] eCW1 ( [facility]) Systolic blood pressure 80 mm[Hg] 80 mm[Hg] e CW1 ([facility]) Diastolic blood pressure 60 mm[Hg] 60 mm[Hg] eCW1 ([facility]) Body weight 185.2 [lb_av] 185.2 [lb_av] eCW1 ([facility]) Body height 68.5 [in_i] 68.5 [in_i] eCW1 ([facility]) Body mass index (BMI) [Ratio] 27.75 kg/m2 27.75 kg/m2 eCW1 ([facility]) Heart rate 100 /min 100 /min eCW1 ([facility]) Respiratory rate 20 /min 20 /min eCW1 ([facility]) Body temperature 97.0 [degF] 97.0 [degF] eCW1 ( [facility]) Systolic blood pressure 112 mm[Hg] 112 mm[Hg] e CW1 ([facility]) Diastolic blood pressure 76 mm[Hg] 76 mm[Hg] eCW1 ([facility]) Patient Treatment Plan of Care Planned Activity Planned Date Details Description Data Source (s) Potassium Chloride 20 MEQ 02/18/2021 12:00:00 AM EDT eCW1 ([facility]) Potassium Chloride 20 MEQ 02/18/2021 12:00:00 AM EDT eCW1 ([facility]) Potassium Chloride 20 MEQ 02/18/2021 12:00:00 AM EDT eCW1 ([facility]) Potassium Chloride 20 MEQ 02/18/2021 12:00:00 AM EDT eCW1 ([facility]) Potassium Chloride 20 MEQ 02/18/2021 12:00:00 AM EDT eCW1 ([facility]) Potassium Chloride 20 MEQ 02/18/2021 12:00:00 AM EDT eCW1 ([facility]) Potassium Chloride 20 MEQ 02/18/2021 12:00:00 AM EDT eCW1 ([facility])
[2021-11-04] MEDS ORDERED: PILL CUTTER 1 EACH XX PRN (15:35)
[2021-11-04 20:00] VITALS: BP 127/75
[2021-11-04] MEDS: COMBIVENT RESPIMAT 100-20MCG INHALER 4GM INH SCH (21:08)
[2021-11-04] MEDS: SENNA 8.6 MG TAB (SENOKOT) PO SCH (22:04)
[2021-11-04] MEDS: DOCUSATE SODIUM 100MG CAPSULE PO SCH (22:04)
[2021-11-04] MEDS: ACETAMINOPHEN 500 MG TAB PO SCH (22:05)
[2021-11-04] MEDS: METOPROLOL TART 25 MG TABLET PO SCH (22:05)
[2021-11-04] MEDS: FLUTICASONE PROP 0.05% NASAL SPRAY 16 GM (FLONASE) NARES SCH (22:07)
[2021-11-04] MEDS: BALMEX CREAM 60GM TOP SCH (22:07)
[2021-11-04] MEDS: HEPARIN SOD (PORCINE) 5000UNITS/ML 1ML VIAL/SYRINGE SC SCH (22:07)
[2021-11-05] MEDS: METOPROLOL TART 25 MG TABLET PO SCH ×3 (05:34→20:12)
[2021-11-05 06:00] VITALS: BP 100/55
[2021-11-05 08:09] LABS: BASO # 0.1 10^3/uL (0.0-0.2); BASO % 0.8 % (0.0-1.0); EOS # 0.4 10^3/uL (0.0-0.5); EOS % 6.6 % (0.0-3.0); HEMATOCRIT 34.5 % (36.0-47.0); HEMOGLOBIN 11.4 g/dl (12.0-15.5); LYMPH # 1.7 10^3/uL (1.5-5.0); LYMPH % 26.1 % (24.0-44.0); MEAN CORPUSCULAR HEMOGLOBIN 35.2 pg (27.0-33.0); MEAN CORPUSCULAR VOLUME 106.5 fl (80.0-96.0); MONO # 0.6 10^3/uL (0.0-0.8); MONO % 8.7 % (2.0-8.0); NEUTROPHILS # 3.7 10^3/uL (1.5-8.5); NEUTROPHILS % 57.5 % (36.0-66.0); PLATELET COUNT, AUTOMATED 296 10^3/uL (150-450); RED BLOOD COUNT 3.24 10^6/uL (4.00-5.40); WHITE BLOOD COUNT 6.4 10^3/uL (4.0-10.0)
[2021-11-05] MEDS: COMBIVENT RESPIMAT 100-20MCG INHALER 4GM INH SCH ×3 (08:30→20:44)
[2021-11-05 08:45] LABS: ALBUMIN 2.9 GM/DL (3.2-5.2); ALT/SGPT 33 U/L (12-78); BILIRUBIN,TOTAL 0.5 MG/DL (0.2-1.0); BLOOD UREA NITROGEN 15 MG/DL (7-18); CALCIUM LEVEL 9.4 MG/DL (8.8-10.2); CARBON DIOXIDE LEVEL 26 MEQ/L (21-32); CHLORIDE LEVEL 107 MEQ/L (98-107); CREATININE FOR GFR 0.79 MG/DL (0.55-1.30); GLOMERULAR FILTRATION RATE > 60.0 (>45); GLUCOSE, FASTING 116 MG/DL (70-100); POTASSIUM SERUM 4.2 MEQ/L (3.5-5.1); SODIUM LEVEL 140 MEQ/L (136-145); TOTAL PROTEIN 6.4 GM/DL (6.4-8.2)
--- NOTE | 2021-11-05 09:31 | HPEPDOC ---
Rn Anesthesiology Note DATE OF ADMISSION: 11-05-21 DATE OF SERVICE: 11-06-21 TIME OF ADMISSION: Please refer to physician's admission order. SOURCE OF ADMISSION INFORMATION: [facility] record and patient CHIEF COMPLAINT: pelvic fracture HISTORY OF PRESENT ILLNESS: 65F with pmh rib fracture, had a recent fall with right fibular fracture s/p casting, weight loss, ongoing dizziness with bilat hand numbness presented to [facility] ED on 10-24-21 following a fall preceded by dizziness without LOC reporting pain and difficulty walking. Pelvis CT revealed, L5-S1 there is severe narrowing of the L5 neural foramina secondary to prominent osteophyte formation greater on the left. At L4-L5 is moderate broad-based disc protrusion causing moderate impression on the thecal sac. And Ct abdomen pelvis showed, Evidence of a subtle fracture of the right inferior pubic ramus. She was evaluated by orthopedics for her right inferior pubic ramus fracture who recommended protected weight bearing and outpatient follow-up. She was treated for an E coli UTI and started on Fosfomax for presumed osteoporosis given her history of multiple fractures. She was found to be Covid positive with no respiratory symptoms and received monoclonal antibodies. She was kept on isolated floor un til cleared by infection control to be discharged on 11-04-21 for ARU admission which she was deemed appropriate for given her ongoing mobility and ADL impairments. REVIEW OF SYSTEMS: The following is a completed review of systems and has been reviewed. Review of systems otherwise unremarkable. PAIN: Patient self reports no pain EYES: No recent vision changes EARS, NOSE, & THROAT: No throat pain, or dysphagia, or rhinorrhea CARDIOVASCULAR: Denies chest pain or palpitations PULMONARY: Denies shortness of breath GASTROINTESTINAL: Denies constipation/diarrhea GENITOURINARY: +urge incontinence (chronic) MUSCULOSKELETAL: pelvic facture with generalized weakness NEUROLOGICAL:+ peripheral polyneuropathy HEMATOLOGICAL: denies easy bruising SKIN: denies rash PSYCHIATRIC: Unremarkable All other review of systems found to be negative. PAST MEDICAL HISTORY: as per HPI PAST SURGICAL HISTORY: none ALLERGIES: Please see below. MEDICATIONS: Please see below. SOCIAL HISTORY: Former smoker, no etoh/illicit drugs DIET: low sodium PHYSICAL EXAMINATION: VITAL SIGNS: Please see below. GENERAL: Pleasant and cooperative. No acute distress. thin HEENT: PERRL. Extraocular movements intact. Clear conjunctiva CARDIOVASCULAR: [Regular rate and rhythm. No murmurs, rubs, or gallops LUNGS: Clear to auscultation bilaterally. No wheezes. No rhonchi ABDOMEN: Soft, nontender, nondistended. Positive bowel sounds. Normal active bowel sounds NEUROLOGICAL: Alert and oriented times three. Cranial nerves II through XII grossly intact. Sensation diminished to light touch in all 5 finger tips and bilat tips of toes 1/4 patellar and bicep reflexes (negative Babinski/clonus bilat, negative hoffmans) EXTREMITIES: 5-\5 strength bilateral upper extremities. 51\5 strength right lower extremity. 51/5 strength in left lower extremity. SKIN: right ankle medial malleoli with dried wound with dried exudate and erythematous base LABORATORY DATA: Please see below. IMAGING:Imaging documentation personally reviewed by record FUNCTIONAL STATUS: Premorbid: Mod-Independent with all activities of daily life as well as mobility community level On Admission: Min assist for dressing, standby for functional transfers and ambulation however only able to ambulate 25 feet ASSESSMENT:65-year-old F with past medical history of multiple fractures who presents status post fall with right pubic ramus fracture PLAN: 1. Rehab- PT/OT advance mobility and ADLs, strengthen/stretch/maintain ROM all 4 limbs 2. Ortho- s/p fall with right pubic ramus fracture cont WBAT with RW, Fosamax started for osteoporosis, f/u ortho as outpatient 3. Neuro- patient with hx of dizziness, will ask PT to do vestibular eval and treat prn -patient with bilat hand numbness and foot not in dermatomal pattern or stoc kat/glove pattern, patient presenting with lower motor neuron signs and non- length dependent neuropathy- (patient does not have hypothyroidism, recent B12 levels WNL, there is concern for paraneoplastic cause given recent weight loss, will defer to neurology on this dx and strongly consider inhouse neurology consul- patient also needs EMG/NCS for further evaluation and has outpatient appointment -will obtain cervical imaging while inhouse as this could be bilateral multilevel radiculopathy but unlikely, will trial wrist splints here om case there is a concomitant carpal tunnel component although exam not consistent with CTS 4. CAardiac- no hx of HTn, however patient with elevated BPs and tachycardia on inpatient side, will start metoprolol and low dose amlodipine -medicine consulted to assist in overall management 5. Resp- monitor for infection, recent dx of Covid, cont Combivent 6. DVT ppx- heparin and teds, will order dopplers to r/o DVT given recent Covid dx/pelvic fracture and tachycardia 7. Pain- standing tylenol, oxycodone prn 8. GI ppx- protonix 9. Endo- patient with low end normal TSH and elevated FT4, will discuss treatment with endocrine given patient has had 60 pound weight loss 10. Heme/Onc- patient has had 60 pound weight loss in last 3 months, which could be related to subclinical hyperthyroidism, will consult oncology for assistance in work-up 11. Dispo- TBD POST ADMISSION PHYSICIAN EVALUATION: Medical and functional status: Description of medical status, medical assessment: As above. Rehabilitation diagnosis and current and prior cold morbid medical conditions as above. Risk of complications and plans to mitigate them as above. Description of functional status current status is as above. Prior status as above. Status compared to preadmission: There are no clinically significant differences between the patient's current status and the information described on the preadmission screening document. Treatment plan anticipated: Treatment plan is as described above. Required di sciplines including physical therapy, occupational therapy, others as noted above. Intensity of services: 3 hours a day, 6 days a week. Special considerations: There are no specific special or safety considerations that would likely preclude immediate implementation of an intensive rehabilitation program or subsequently influence the plan of care. ATTESTATION: Considering all the information above, it is my best judgment that this patient requires intensive rehabilitation therapy as described above and an inpatient hospital environment due to the complexity of nursing, medical, and rehabilitation needs required by the patient. Furthermore, this patient can reasonably be expected to participate in an benefit from an inpatient rehabilitation stay with an interdisciplinary team approach to the delivery of rehabilitation care under the direction and supervision of rehabilitation physician. PROGNOSIS: Excellent ESTIMATED LENGTH OF STAY: 12-14 days. PROJECTED DISCHARGE DESTINATION: Home with family support and any durable medical equipment required to increase functional safety and mobility TIME SPENT COUNSELING AND COORDINATING INITIAL CARE: Greater than 70 minutes. Vital Signs Vital Sign - Last 24 Hours 11/04/21 11/04/21 11/04/21 11/04/21 15:00 16:14 20:00 22:05 Temp 99.5 98.3 Pulse 104 99 99 Resp 20 20 20 B/P (MAP) 135/60 (85) 127/75 (92) 127/75 Pulse Ox 96 98 O2 Delivery Room Air Room Air Room Air 11/05/21 11/05/21 05:34 06:00 Temp 97.1 Pulse 77 77 Resp 16 B/P (MAP) 100/57 100/55 (70) Pulse Ox 97 O2 Delivery Room Air Laboratory Data CBC/BMP Laboratory Tests 11/05/21 07:54 Labs 24H Laboratory Tests 2 11/05/21 07:54: Immature Granulocyte % (Auto) 0.3, Neutrophils (%) (Auto) 57.5, Lymphocytes (%) (Auto) 26.1, Monocytes (%) (Auto) 8.7H, Eosinophils (%) (Auto) 6.6H, Basophils (%) (Auto) 0.8, Neutrophils # (Auto) 3.7, Lymphocytes # (Auto) 1.7, Monocytes # (Auto) 0.6, Eosinophils # (Auto) 0.4, Basophils # (Auto) 0.1, Nucleated Red Blood Cells % (auto) 0.0, Anion Gap 7L, Glomerular Filtration Rate > 60.0, Calcium Level 9.4, Total Bilirubin 0.5, Aspartate Amino Transf (AST/SGOT) 17, Alanine Aminotransferase (ALT/SGPT) 33, Alkaline Phosphatase 105, Total Protein 6.4, Albumin 2.9L, Albumin/Globulin Ratio 0.8L Home Medications Scheduled Alendronate Sodium (Alendronate Sodium) 35 Mg Tablet, 35 MG PO Ortega@07 Docusate Sodium (Colace) 100 Mg Capsule, 100 MG PO BID Scheduled PRN Fluticasone Propionate (Flonase Allergy Relief) 9.9 Ml [place].susp, 1 SPRAY NA DAILY PRN for NASAL CONGESTION, (Reported) Allergies Coded Allergies: Sulfa (Sulfonamide Antibiotics) (Verified Allergy, Intermediate, 08/14/21) A-FIB/CHADSVASC A-FIB History Current/History of A-Fib/PAF?: No Current PO Anticoag Therapy: No LEE CHAUDHRY MD Nov 05, 2021 09:31
[2021-11-05] MEDS: DOCUSATE SODIUM 100MG CAPSULE PO SCH ×2 (09:45→20:13)
[2021-11-05] MEDS: HEPARIN SOD (PORCINE) 5000UNITS/ML 1ML VIAL/SYRINGE SC SCH ×2 (09:45→20:13)
[2021-11-05] MEDS: PANTOPRAZOLE 40MG TAB (PROTONIX) PO SCH (09:46)
[2021-11-05] MEDS: ACETAMINOPHEN 500 MG TAB PO SCH ×3 (09:46→20:11)
[2021-11-05] MEDS: MAGNESIUM OXIDE 400MG TAB (MAG-OX) PO SCH (09:46)
[2021-11-05] MEDS: BALMEX CREAM 60GM TOP SCH ×3 (09:51→20:14)
[2021-11-05] MEDS: FLUTICASONE PROP 0.05% NASAL SPRAY 16 GM (FLONASE) NARES SCH ×2 (09:51→20:13)
[2021-11-05] MEDS ORDERED: BISACODYL 10 MG SUPP PR PRN (10:15)
[2021-11-05 14:00] VITALS: BP 106/66
[2021-11-05] MEDS: BISACODYL 5 MG TAB PO SCH (14:08)
[2021-11-05] MEDS: MIRALAX *UNIT DOSE* 17GM PACKET PO SCH (14:08)
--- NOTE | 2021-11-05 15:29 | REP ---
INDICATION: immobility- recent Covid COMPARISON: None. TECHNIQUE: Bah scale and color Doppler evaluation using linear high frequency transducer. FINDINGS: Ultrasound examination of the right and left lower extremity deep venous structures from the common femoral vein through the popliteal vein demonstrates normal compressibility, flow and wave patterns in response to respiration and augmentation. Evaluation of the calf veins is limited. There is no evidence for deep venous thrombosis. Complex Garcia's cyst in the right popliteal fossa measures 6.5 x 2.6 x 5.2 cm. IMPRESSION: No evidence for deep venous thrombosis. Complex Garcia's cyst in the right popliteal fossa. <Electronically signed by Adarsh Booker > 11/05/21 [id number]
[2021-11-05 20:00] VITALS: BP 130/80
[2021-11-05] MEDS: SENNA 8.6 MG TAB (SENOKOT) PO SCH (20:13)
[2021-11-06 05:53] VITALS: BP 140/75
[2021-11-06] MEDS: METOPROLOL TART 25 MG TABLET PO SCH ×3 (05:57→21:53)
[2021-11-06] MEDS: COMBIVENT RESPIMAT 100-20MCG INHALER 4GM INH SCH ×3 (07:40→20:46)
[2021-11-06] MEDS: MIRALAX *UNIT DOSE* 17GM PACKET PO SCH (08:05)
[2021-11-06] MEDS: DOCUSATE SODIUM 100MG CAPSULE PO SCH ×2 (08:05→20:28)
[2021-11-06] MEDS: ACETAMINOPHEN 500 MG TAB PO SCH ×3 (08:06→20:29)
[2021-11-06] MEDS: BISACODYL 5 MG TAB PO SCH (08:06)
[2021-11-06] MEDS: PANTOPRAZOLE 40MG TAB (PROTONIX) PO SCH (08:06)
[2021-11-06] MEDS: FLUTICASONE PROP 0.05% NASAL SPRAY 16 GM (FLONASE) NARES SCH ×2 (08:07→20:29)
[2021-11-06] MEDS: HEPARIN SOD (PORCINE) 5000UNITS/ML 1ML VIAL/SYRINGE SC SCH ×2 (08:07→20:28)
[2021-11-06] MEDS: MAGNESIUM OXIDE 400MG TAB (MAG-OX) PO SCH (08:07)
[2021-11-06 08:14] LABS: BASO # 0.1 10^3/uL (0.0-0.2); EOS # 0.3 10^3/uL (0.0-0.5); EOS % 4.8 % (0.0-3.0); HEMOGLOBIN 11.4 g/dl (12.0-15.5); LYMPH # 1.8 10^3/uL (1.5-5.0); MEAN CORPUSCULAR HGB CONC 33.5 g/dl (32.0-36.5); MEAN CORPUSCULAR VOLUME 107.3 fl (80.0-96.0); MONO # 0.4 10^3/uL (0.0-0.8); MONO % 5.2 % (2.0-8.0); NEUTROPHILS # 4.1 10^3/uL (1.5-8.5); NEUTROPHILS % 61.6 % (36.0-66.0); PLATELET COUNT, AUTOMATED 290 10^3/uL (150-450); RED BLOOD COUNT 3.17 10^6/uL (4.00-5.40); WHITE BLOOD COUNT 6.7 10^3/uL (4.0-10.0)
[2021-11-06] MEDS: BALMEX CREAM 60GM TOP SCH ×2 (08:14→15:53)
[2021-11-06 08:35] LABS: BLOOD UREA NITROGEN 15 MG/DL (7-18); CALCIUM LEVEL 9.2 MG/DL (8.8-10.2); CARBON DIOXIDE LEVEL 26 MEQ/L (21-32); CHLORIDE LEVEL 108 MEQ/L (98-107); CREATININE FOR GFR 0.74 MG/DL (0.55-1.30); GLOMERULAR FILTRATION RATE > 60.0 (>45); GLUCOSE, FASTING 116 MG/DL (70-100); POTASSIUM SERUM 3.9 MEQ/L (3.5-5.1); SODIUM LEVEL 141 MEQ/L (136-145)
--- NOTE | 2021-11-06 10:41 | IPNPDOC ---
PM&R Progress Note DATE OF SERVICE: Nov 06, 2021 Dispatch Associate Progress Note Subjective: Patient seen in therapy walking reporting she feels weak and it's hard for her to eat because her hands are numb, but she is eating better here on ARU than she did at home. REVIEW OF SYSTEMS: The following is a completed review of systems and has been r eviewed. Review of systems otherwise unremarkable. PAIN: Patient self reports no pain EYES: No recent vision changes EARS, NOSE, & THROAT: No throat pain, or dysphagia, or rhinorrhea CARDIOVASCULAR: Denies chest pain or palpitations PULMONARY: Denies shortness of breath GASTROINTESTINAL: Denies constipation/diarrhea GENITOURINARY: +urge incontinence (chronic) MUSCULOSKELETAL: pelvic facture with generalized weakness NEUROLOGICAL:+ peripheral polyneuropathy HEMATOLOGICAL: denies easy bruising SKIN: denies rash PSYCHIATRIC: Unremarkable All other review of systems found to be negative. PHYSICAL EXAMINATION: VITAL SIGNS: Please see below. GENERAL: Pleasant and cooperative. No acute distress. thin HEENT: PERRL. Extraocular movements intact. Clear conjunctiva CARDIOVASCULAR: [Regular rate and rhythm. No murmurs, rubs, or gallops LUNGS: Clear to auscultation bilaterally. No wheezes. No rhonchi ABDOMEN: Soft, nontender, nondistended. Positive bowel sounds. Normal active bowel sounds NEUROLOGICAL: Alert and oriented times three. Cranial nerves II through XII grossly intact. Sensation diminished to light touch in all 5 finger tips and bilat tips of toes 1/4 patellar and bicep reflexes (negative Babinski/clonus bilat, negative hoffmans) EXTREMITIES: 5-\5 strength bilateral upper extremities. 51\5 strength right lower extremity. 51/5 strength in left lower extremity. SKIN: right ankle medial malleoli with dried wound with dried exudate and erythematous base ASSESSMENT:65-year-old F with past medical history of multiple fractures who presents status post fall with right pubic ramus fracture PLAN: 1. Rehab- PT/OT advance mobility and ADLs, strengthen/stretch/maintain ROM all 4 limbs 2. Ortho- s/p fall with right pubic ramus fracture cont WBAT with RW, Fosamax started for osteoporosis, f/u ortho as outpatient - recent right fibular fracture s/p casting and removal, Ankle XR ordered to r/o osteomyelitis given medial malleoli wound- negative 3. Neuro- patient with hx of dizziness, will ask PT to do vestibular eval and treat prn -patient with bilat hand numbness and foot not in dermatomal pattern or stocking/glove pattern, patient presenting with lower motor neuron signs and non-length dependent neuropathy- (patient does not have hypothyroidism, recent B12 levels WNL, there is concern for paraneoplastic cause given recent weight loss, will defer to neurology on this dx and strongly consider inhouse neurology consul- patient also needs EMG/NCS for further evaluation and has outpatient appointment -will obtain cervical imaging while inhouse as this could be gogo ateral multilevel radiculopathy but unlikely, will trial wrist splints here om case there is a concomitant carpal tunnel component although exam not consistent with CTS -discussed case with Dr. Riddle who may come see patient, recommended in the meantime checking A1C, Lyme, Copper, B1, B12, and SPEP 4. CAardiac- no hx of HTn, however patient with elevated BPs and tachycardia on inpatient side, cont metoprolol and low dose amlodipine -medicine consulted to assist in overall management 5. Resp- monitor for infection, recent dx of Covid, cont Combivent 6. DVT ppx- heparin and teds, Dopplers negative for DVT bilat LE 7. Pain- standing tylenol, oxycodone prn 8. GI ppx- protonix 9. Endo- patient with low end normal TSH and elevated FT4, will discuss treatment with endocrine given patient has had 60 pound weight loss 10. Heme/Onc- patient has had 60 pound weight loss in last 3 months, which could be related to subclinical hyperthyroidism, will consult oncology for assistance in work-up 11. Dispo- TBD Barriers to discharge/functional status: Patient is unsteady on her feet and weak, min assist for ambulation and toileting, will need to be Mod-I prior to home in both PT and OT. Neuropathy and generalized weakness work-up in progress. Allergies Coded Allergies: Sulfa (Sulfonamide Antibiotics) (Verified Allergy, Intermediate, 08/14/21) Vital Signs Vital Signs Date Time Temp Pulse Resp B/P (MAP) Pulse Ox O2 Delivery O2 Flow Rate FiO2 11/06/21 08:06 76 138/75 11/06/21 05:53 97.8 20 95 Room Air Laboratory Data CBC/BMP Laboratory Tests 11/06/21 07:33 Labs 24H Laboratory Tests 2 11/06/21 07:33: Immature Granulocyte % (Auto) 0.4, Neutrophils (%) (Auto) 61.6, Lymphocytes (%) (Auto) 27.0, Monocytes (%) (Auto) 5.2, Eosinophils (%) (Auto) 4.8H, Basophils (%) (Auto) 1.0, Neutrophils # (Auto) 4.1, Lymphocytes # (Auto) 1.8, Monocytes # (Auto) 0.4, Eosinophils # (Auto) 0.3, Basophils # (Auto) 0.1, Nucleated Red Blood Cells % (auto) 0.0, Anion Gap 7L, Glomerular Filtration Rate > 60.0, Calcium Level 9.2 Current Medications Current Medications Current Medications Medications (Trade) Dose Ordered Sig/Juan Route PRN Reason Start Time Stop Time Status Last Admin Dose Admin Acetaminophen (Tylenol Tab) 1,000 mg TID PO 11/04/21 21:00 11/06/21 08:06 Albuterol/ Ipratropium (Combivent Respimat 100-20mcg) 1 puff RTID INH 11/04/21 20:00 11/06/21 07:40 Alendronate Sodium (Fosamax) 35 mg Ortega@07 PO 11/10/21 07:00 Amlodipine Besylate (Norvasc) 2.5 mg DAILY PO 11/05/21 09:00 11/06/21 08:06 Bisacodyl (Dulcolax Suppository) 10 mg DAILYPRN PRN [place] CONSTIPATION 11/05/21 10:15 Bisacodyl (Dulcolax Tab) 5 mg DAILY PO 11/05/21 10:15 11/06/21 08:06 Docusate Sodium (Colace) 100 mg BID PO 11/04/21 21:00 11/06/21 08:05 Fluticasone Propionate (Flonase 0.05% Nasal [place]) 1 spray BID NARES 11/04/21 21:00 11/06/21 08:07 Heparin Sodium (Porcine) (Heparin) 5,000 units Q12H SC 11/04/21 21:00 11/06/21 08:07 Magnesium Oxide (Mag-Ox) 400 mg DAILY PO 11/05/21 09:00 11/06/21 08:07 Metoprolol Tartrate (Lopressor) 25 mg Q8H PO 11/04/21 22:00 11/06/21 05:57 Oxycodone HCl (Roxicodone, Oxyir) 2.5 mg Q4HP PRN PO MODERATE PAIN (PS 5-7) 11/04/21 14:10 Pantoprazole Sodium (Protonix) 40 mg DAILY PO 11/05/21 09:00 11/06/21 08:06 Polyethylene Glycol (Miralax) 1 pkt DAILY PO 11/05/21 10:15 11/06/21 08:05 Senna (Senokot) 1 tab QHS PO 11/04/21 21:00 11/05/21 20:13 Zinc Oxide (Balmex Cream) to sacrum TID TOP 11/04/21 21:00 11/06/21 08:14 LEE CHAUDHRY MD Nov 06, 2021 10:41
[2021-11-06 11:11] LABS: C REACTIVE PROTEIN QUANTITATIV 0.54 MG/DL (0.00-0.30)
[2021-11-06 11:41] LABS: ERYTHROCYTE SEDIMENTATION RATE 49 mm/hr (0-30)
--- NOTE | 2021-11-06 11:50 | REP ---
INDICATION: r/o osteomyelitis (medial malleoli) COMPARISON: 09/24/2021 TECHNIQUE: AP, lateral, bilateral oblique views. FINDINGS: There is a healing oblique fracture of the distal fibula. Underlying stable age-related changes. Chronic stable corticated densities at the medial malleolus are again identified. The tibiotalar joint appears relatively normal/stable. IMPRESSION: Healing fracture of the distal fibula along with stable age-related changes. No obvious radiographic evidence to suggest osteomyelitis. <Electronically signed by Adarsh Booker > 11/06/21 1141
--- NOTE | 2021-11-06 11:54 | REPVR ---
PROCEDURE INFORMATION: Exam: CT Cervical Spine Without Contrast Exam date and time: 11/06/2021 11:18 AM Age: 66 years old Clinical indication: Other: R/O stenosis TECHNIQUE: Imaging protocol: Computed tomography images of the cervical spine without contrast. Radiation optimization: All CT scans at this facility use at least one of these dose optimization techniques: automated exposure control; mA and/or kV adjustment per patient size (includes targeted exams where dose is matched to clinical indication); or iterative reconstruction. COMPARISON: CT Head without contrast 10/24/2021 3:23 PM FINDINGS: Vertebrae: No acute fracture. Normal alignment. C2-C3: There is a shallow disc osteophyte complex. There is mild facet hypertrophy. There is mild right neural foraminal narrowing. C3-C4: There is a shallow disc osteophyte complex. There is mild right and severe left facet hypertrophy. There is severe left neural foraminal narrowing. C4-C5: There is a shallow disc osteophyte complex. There is moderate right and severe left facet hypertrophy. There is moderate to severe right and mild left neural foraminal narrowing. C5-C6: There is a diffuse disc osteophyte complex. There is moderate facet hypertrophy. There is severe right and moderate to severe left neural foraminal narrowing. There is mild canal stenosis. C6-C7: No significant disc protrusion. No severe spinal canal stenosis. No significant neural foraminal narrowing. C7-T1: No significant disc protrusion. No severe spinal canal stenosis. No significant neural foraminal narrowing. Soft tissues: Unremarkable. Lungs: Lung apices are normal. IMPRESSION: Degenerative disc disease and spondylosis as described, with multilevel moderate to severe neural foraminal narrowing. Electronically signed by: Justyna Alvarez On 11/06/2021 11:54:14 AM
[2021-11-06 14:00] VITALS: BP 104/60
--- NOTE | 2021-11-06 15:45 | IPNPDOC ---
Text Note Date of Service The patient was seen on 11/06/21. NOTE Subjective: Patient is a 65 year old female with no significant PMHx who presented to the ER on 10/24 after she had fallen. In the ER, patient had imaging completed that was consistent with a R pubic rami fracture. Patient was also found to be COVID19 positive but not hypoxic. Patient was admitted to the hospital service for further evaluation and treatment. Orthopedic surgery was called on consultation. Patient's pubic rami fracture was managed nonoperatively. Patient was consulted for Escherichia coli UTI was treated with Levaquin. Patient is receiving antibody infusion for her COVID19 infection. She was ultimately transitioned to acute rehabilitation unit on 11/04. Patient was seen and examined at the bedside. Patient denies any nausea, vomiting, chest pain, shortness breath, palpitations, abdominal pain, diarrhea, or urinary discomfort. Earlier today, I did see the patient ambulate with physical therapy. Objective: Vitals (See below) General: Lying in bed, comfortable, AAOx3 HEENT: NC, AT CVS: RRR, +S1S2 Lungs: Fair air entry b/l, -w/r/r Abdomen: Soft, ND, NT Extremities: - Edema, - Calf tenderness Imaging: Vascular US 11/05: No evidence for deep venous thrombosis. Complex Garcia's cyst in the right popliteal fossa. Ankle XR 11/06: Healing fracture of the distal fibula along with stable age-related changes. No obvious radiographic evidence to suggest osteomyelitis. Cervical spine CT 11/06: Degenerative disc disease and spondylosis as described, with multilevel moderate to severe neural foraminal narrowing. Assessment and plan: Right inferior pubic ramus fracture - likely 2/2 mechanical fall - Clinically patient denies any significant pain - Orthopedic surgery had evaluated patient, when she was inpatient recommended conservative measures - c/w Oxycodone PRN - c/w PT and OT as per ARU s/p E. coli UTI - s/p Levofloxacin Bilateral hand stiffness / Dizziness / Unsteady gait - Imaging noted above - c/w PT and OT as per ARU - Neurology has been consulted by ARU History of multiple fractures - c/w Alendronate COVID19 positive - Asymptomatic - Not hypoxic - s/p Monoclonal antibody infusion Unintentional weight loss - Patient was that she has received screening colonoscopies, mammograms and Pap smears at regular intervals - She notes that all of which have been relatively normal Subclinical hypothyroidism - TSH normal - Free T4 elevated - Will repeat lab work in 2-3 weeks HTN - BP well controlled - c/w Amlodipine / Metoprolol GERD - c/w Protonix DVT prophylaxis - c/w Heparin Disposition: - As per ARU VS,Alvin, I+O VS, Monye, I+O Laboratory Tests 11/06/21 07:33 Vital Signs Date Time Temp Pulse Resp B/P (MAP) Pulse Ox O2 Delivery O2 Flow Rate FiO2 11/06/21 14:00 98.0 85 20 104/60 (75) 99 Room Air I&O- Last 24 Hours up to 6 AM 11/06/21 06:00 Intake Total 1400 ml Balance 1400 ml JENARO VASQUEZ MD Nov 06, 2021 15:45
[2021-11-06 18:21] LABS: HEMOGLOBIN A1c 5.5 %
[2021-11-06 18:38] LABS: TOTAL PROTEIN 5.8 GM/DL (6.4-8.2)
[2021-11-06 18:44] LABS: VITAMIN B12 LEVEL 394 PG/ML (247-911)
[2021-11-06 19:58] VITALS: BP 144/83
[2021-11-06] MEDS: SENNA 8.6 MG TAB (SENOKOT) PO SCH (20:29)
[2021-11-06] MEDS: REMEDY PHYTOPLEX Z-GUARD PASTE 113GM TUBE (FROM STOREROOM PRODUCT) TOP SCH (21:00)
[2021-11-07 05:37] VITALS: BP 112/73
[2021-11-07] MEDS: METOPROLOL TART 25 MG TABLET PO SCH ×3 (05:41→21:06)
[2021-11-07] MEDS: COMBIVENT RESPIMAT 100-20MCG INHALER 4GM INH SCH ×3 (07:23→20:00)
[2021-11-07 09:00] VITALS: BP 127/67
[2021-11-07] MEDS: MIRALAX *UNIT DOSE* 17GM PACKET PO SCH (09:00)
[2021-11-07] MEDS: REMEDY PHYTOPLEX Z-GUARD PASTE 113GM TUBE (FROM STOREROOM PRODUCT) TOP SCH ×3 (09:00→21:07)
[2021-11-07] MEDS: BISACODYL 5 MG TAB PO SCH (09:00)
[2021-11-07] MEDS: DOCUSATE SODIUM 100MG CAPSULE PO SCH ×2 (09:00→21:00)
[2021-11-07] MEDS: PANTOPRAZOLE 40MG TAB (PROTONIX) PO SCH (09:40)
[2021-11-07] MEDS: MAGNESIUM OXIDE 400MG TAB (MAG-OX) PO SCH (09:40)
[2021-11-07] MEDS: HEPARIN SOD (PORCINE) 5000UNITS/ML 1ML VIAL/SYRINGE SC SCH ×2 (09:41→21:00)
[2021-11-07] MEDS: ACETAMINOPHEN 500 MG TAB PO SCH ×3 (09:41→21:01)
[2021-11-07] MEDS: FLUTICASONE PROP 0.05% NASAL SPRAY 16 GM (FLONASE) NARES SCH ×2 (09:43→21:01)
[2021-11-07 14:00] VITALS: BP 122/65
[2021-11-07 15:15] VITALS: BP 122/65
--- NOTE | 2021-11-07 17:28 | REP ---
INDICATION: r/o nodules/mass (weight loss and abnormal TFTs). COMPARISON: None. TECHNIQUE: Multiple ultrasound images of the thyroid gland were performed. FINDINGS: The right thyroid lobe measures 4.7 x 1.4 x 1.2 cm. There is a solid heterogeneous nodule in the lower pole of the right thyroid lobe measuring 8 x 7 x 6 mm. The left thyroid lobe measures 3.7 x 1.4 x 1.3 cm. There is a solid low echogenicity nodule in the interpolar region of the left thyroid lobe at the isthmus measuring 7 x 6 x 4 mm. The thyroid isthmus measures 2 mm in thickness. IMPRESSION: 1. The thyroid gland is normal in size and predominantly homogeneous in echotexture. 2. There are small solid nodules in both thyroid lobes as described. <Electronically signed by Guanaco Vital > 11/07/21 9511
[2021-11-07 20:00] VITALS: BP 97/56
--- NOTE | 2021-11-07 20:51 | IPNPDOC ---
PM&R Progress Note DATE OF SERVICE: Nov 07, 2021 Scientific Technical Writer Progress Note Subjective: Patient seen in her room stating she feels better today and has more energy for therapy. REVIEW OF SYSTEMS: The following is a completed review of systems and has been reviewed. Review of systems otherwise unremarkable. PAIN: Patient self reports no pain EYES: No recent vision changes EARS, NOSE, & THROAT: No throat pain, or dysphagia, or rhinorrhea CARDIOVASCULAR: Denies chest pain or palpitations PULMONARY: Denies shortness of breath GASTROINTESTINAL: Denies constipation/diarrhea GENITOURINARY: +urge incontinence (chronic) MUSCULOSKELETAL: pelvic facture with generalized weakness NEUROLOGICAL:+ peripheral polyneuropathy HEMATOLOGICAL: denies easy bruising SKIN: denies rash PSYCHIATRIC: Unremarkable All other review of systems found to be negative. PHYSICAL EXAMINATION: VITAL SIGNS: Please see below. GENERAL: Pleasant and cooperative. No acute distress. thin HEENT: PERRL. Extraocular movements intact. Clear conjunctiva CARDIOVASCULAR: [Regular rate and rhythm. No murmurs, rubs, or gallops LUNGS: Clear to auscultation bilaterally. No wheezes. No rhonchi ABDOMEN: Soft, nontender, nondistended. Positive bowel sounds. Normal active bowel sounds NEUROLOGICAL: Alert and oriented times three. Cranial nerves II through XII grossly intact. Sensation diminished to light touch in all 5 finger tips and bilat tips of toes 1/4 patellar and bicep reflexes (negative Babinski/clonus bilat, negative hoffmans) EXTREMITIES: 5-\\5 strength bilateral upper extremities. 51\\5 strength right lower extremity. 51/5 strength in left lower extremity. SKIN: right ankle medial malleoli with dried wound with dried exudate and erythematous base ASSESSMENT:65-year-old F with past medical history of multiple fractures who presents status post fall with right pubic ramus fracture PLAN: 1. Rehab- PT/OT advance mobility and ADLs, strengthen/stretch/maintain ROM all 4 limbs 2. Ortho- s/p fall with right pubic ramus fracture cont WBAT with RW, Fosamax started for osteoporosis, f/u ortho as outpatient - recent right fibular fracture s/p casting and removal, Ankle XR ordered to r/o osteomyelitis given medial malleoli wound- negative 3. Neuro- patient with hx of dizziness, will ask PT to do vestibular eval and treat prn -patient with bilat hand numbness and foot not in dermatomal pattern or stocking/glove pattern, patient presenting with lower motor neuron signs and non-length dependent neuropathy- (patient does not have hypothyroidism, recent B12 levels WNL, there is concern for paraneoplastic cause given recent weight loss, will defer to neurology on this dx-patient also needs EMG/NCS for further evaluation and has outpatient appointment - obtained cervical imaging showing, " multilevel moderate to severe neural foraminal narrowing" -cont wrist splints qhs there is concomitant carpal tunnel component although exam not consistent with CTS -discussed case with Dr. Riddle who may come see patient, recommended in the meantime checking A1C, Lyme, Copper, B1, B12, and SPEP 4. CAardiac- no hx of HTn, however patient with elevated BPs and tachycardia on inpatient side, cont metoprolol and low dose amlodipine -medicine consulted to assist in overall management 5. Resp- monitor for infection, recent dx of Covid, cont Combivent 6. DVT ppx- heparin and teds, Dopplers negative for DVT bilat LE 7. Pain- standing tylenol, oxycodone prn 8. GI ppx- protonix 9. Endo- patient with low end normal TSH and elevated FT4, will discuss treatment with endocrine given patient has had 60 pound weight loss- thyroid US results pending 10. Heme/Onc- patient has had 60 pound weight loss in last 3 months, which could be related to subclinical hyperthyroidism, will consult oncology for assistance in work-up 11. Dispo- TBD Barriers to discharge/functional status: Patient is unsteady on her feet and weak, min assist for ambulation and toileting, will need to be Mod-I prior to home in both PT and OT. Neuropathy and generalized weakness work-up in progress. Allergies Coded Allergies: Sulfa (Sulfonamide Antibiotics) (Verified Allergy, Intermediate, 08/14/21) Vital Signs Vital Signs Date Time Temp Pulse Resp B/P (MAP) Pulse Ox O2 Delivery O2 Flow Rate FiO2 11/07/21 15:31 86 122/65 11/07/21 15:15 97.0 19 98 Room Air Current Medications Current Medications Current Medications Medications (Trade) Dose Ordered Sig/Juan Route PRN Reason Start Time Stop Time Status Last Admin Dose Admin Acetaminophen (Tylenol Tab) 1,000 mg TID PO 11/04/21 21:00 12/16/21 15:33 Albuterol/ Ipratropium (Combivent Respimat 100-20mcg) 1 puff RTID INH 11/04/21 20:00 11/07/21 13:03 Alendronate Sodium (Fosamax) 35 mg Ortega@07 PO 11/10/21 07:00 Amlodipine Besylate (Norvasc) 2.5 mg DAILY PO 11/05/21 09:00 11/07/21 09:43 Bisacodyl (Dulcolax Suppository) 10 mg DAILYPRN PRN [place] CONSTIPATION 11/05/21 10:15 Bisacodyl (Dulcolax Tab) 5 mg DAILY PO 11/05/21 10:15 11/06/21 08:06 Docusate Sodium (Colace) 100 mg BID PO 11/04/21 21:00 11/06/21 20:28 Fluticasone Propionate (Flonase 0.05% Nasal [place]) 1 spray BID NARES 11/04/21 21:00 11/07/21 09:43 Heparin Sodium (Porcine) (Heparin) 5,000 units Q12H SC 11/04/21 21:00 11/07/21 09:41 Magnesium Oxide (Mag-Ox) 400 mg DAILY PO 11/05/21 09:00 11/07/21 09:40 Metoprolol Tartrate (Lopressor) 25 mg Q8H PO 11/04/21 22:00 11/07/21 15:31 Oxycodone HCl (Roxicodone, Oxyir) 2.5 mg Q4HP PRN PO MODERATE PAIN (PS 5-7) 11/04/21 14:10 Pantoprazole Sodium (Protonix) 40 mg DAILY PO 11/05/21 09:00 11/07/21 09:40 Polyethylene Glycol (Miralax) 1 pkt DAILY PO 11/05/21 10:15 11/06/21 08:05 Senna (Senokot) 1 tab QHS PO 11/04/21 21:00 11/05/21 20:13 Zinc Oxide (Balmex Cream) to sacrum TID TOP 11/04/21 21:00 11/06/21 19:50 DC 11/06/21 15:53 LEE CHAUDHRY MD Nov 07, 2021 20:51
[2021-11-07] MEDS: SENNA 8.6 MG TAB (SENOKOT) PO SCH (21:00)
[2021-11-08] VITALS (12 sets, daily range): BP systolic 93–126; BP diastolic 52–77
[2021-11-08] MEDS: METOPROLOL TART 25 MG TABLET PO SCH ×3 (05:23→22:00)
[2021-11-08 06:27] LABS: BASO # 0.1 10^3/uL (0.0-0.2); EOS # 0.3 10^3/uL (0.0-0.5); EOS % 6.4 % (0.0-3.0); HEMATOCRIT 31.9 % (36.0-47.0); HEMOGLOBIN 10.4 g/dl (12.0-15.5); LYMPH # 1.8 10^3/uL (1.5-5.0); LYMPH % 35.3 % (24.0-44.0); MEAN CORPUSCULAR HEMOGLOBIN 34.6 pg (27.0-33.0); MEAN CORPUSCULAR HGB CONC 32.6 g/dl (32.0-36.5); MONO # 0.5 10^3/uL (0.0-0.8); MONO % 10.3 % (2.0-8.0); NEUTROPHILS # 2.4 10^3/uL (1.5-8.5); NEUTROPHILS % 46.6 % (36.0-66.0); PLATELET COUNT, AUTOMATED 237 10^3/uL (150-450); RED BLOOD COUNT 3.01 10^6/uL (4.00-5.40); WHITE BLOOD COUNT 5.2 10^3/uL (4.0-10.0)
[2021-11-08 06:56] LABS: BLOOD UREA NITROGEN 12 MG/DL (7-18); CALCIUM LEVEL 8.7 MG/DL (8.8-10.2); CARBON DIOXIDE LEVEL 27 MEQ/L (21-32); CHLORIDE LEVEL 111 MEQ/L (98-107); CREATININE FOR GFR 0.68 MG/DL (0.55-1.30); GLOMERULAR FILTRATION RATE > 60.0 (>45); GLUCOSE, FASTING 98 MG/DL (70-100); POTASSIUM SERUM 4.3 MEQ/L (3.5-5.1); SODIUM LEVEL 143 MEQ/L (136-145)
[2021-11-08] MEDS: COMBIVENT RESPIMAT 100-20MCG INHALER 4GM INH SCH ×3 (07:39→19:54)
[2021-11-08] MEDS: DOCUSATE SODIUM 100MG CAPSULE PO SCH ×2 (09:00→20:00)
[2021-11-08] MEDS: REMEDY PHYTOPLEX Z-GUARD PASTE 113GM TUBE (FROM STOREROOM PRODUCT) TOP SCH ×3 (09:00→20:12)
[2021-11-08] MEDS: HEPARIN SOD (PORCINE) 5000UNITS/ML 1ML VIAL/SYRINGE SC SCH ×2 (09:00→20:11)
[2021-11-08] MEDS: BISACODYL 5 MG TAB PO SCH (09:00)
[2021-11-08] MEDS: MIRALAX *UNIT DOSE* 17GM PACKET PO SCH (09:00)
[2021-11-08] MEDS: PANTOPRAZOLE 40MG TAB (PROTONIX) PO SCH (09:29)
[2021-11-08] MEDS: MAGNESIUM OXIDE 400MG TAB (MAG-OX) PO SCH (09:29)
[2021-11-08] MEDS: FLUTICASONE PROP 0.05% NASAL SPRAY 16 GM (FLONASE) NARES SCH ×2 (09:31→20:11)
[2021-11-08] MEDS: ACETAMINOPHEN 500 MG TAB PO SCH ×3 (09:31→20:11)
[2021-11-08 11:20] LABS: ALBUMIN 3.05 GM/DL (3.29-5.55); ALBUMIN % 52.6 % (55.8-66.1); ALPHA-1-GLOBULIN % 6.4 % (2.9-4.9); ALPHA-1-GLOBULINS 0.37 GM/DL (0.17-0.41); ALPHA-2-GLOBULINS 0.68 GM/DL (0.42-0.99); ALPHA-2-GLOBULINS % 11.8 % (7.1-11.8); BETA-1-GLOBULINS 0.44 GM/DL (0.28-0.60); BETA-1-GLOBULINS % 7.6 % (4.7-7.2); BETA-2-GLOBULINS 0.35 GM/DL (0.19-0.55); BETA-2-GLOBULINS % 6.1 % (3.2-6.5); GAMMA GLOBULIN % 15.6 % (11.1-18.8)
[2021-11-08] MEDS ORDERED: HOME MED LIST COMPLETE! XX SCH (15:05)
[2021-11-08] MEDS ORDERED: IMMUNE GLOBULIN 10% 0 GM in IV 1 EA IV SCH (16:00)
[2021-11-08] MEDS: IMMUNE GLOBULIN 10% 40 GM in IV 1 EA IV SCH (18:54)
[2021-11-08] MEDS: SENNA 8.6 MG TAB (SENOKOT) PO SCH (20:00)
[2021-11-08] MEDS: IMMUNE GLOBULIN 10% 5 GM in IV 1 EA IV SCH (23:48)
[2021-11-09] VITALS (14 sets, daily range): BP systolic 98–136; BP diastolic 52–77
[2021-11-09] MEDS: METOPROLOL TART 25 MG TABLET PO SCH ×3 (05:42→21:16)
[2021-11-09] MEDS: COMBIVENT RESPIMAT 100-20MCG INHALER 4GM INH SCH ×3 (07:36→19:39)
[2021-11-09] MEDS: DOCUSATE SODIUM 100MG CAPSULE PO SCH ×2 (08:35→20:13)
[2021-11-09] MEDS: ACETAMINOPHEN 500 MG TAB PO SCH ×3 (08:36→20:12)
[2021-11-09] MEDS: BISACODYL 5 MG TAB PO SCH (08:36)
[2021-11-09] MEDS: MAGNESIUM OXIDE 400MG TAB (MAG-OX) PO SCH (08:37)
[2021-11-09] MEDS: PANTOPRAZOLE 40MG TAB (PROTONIX) PO SCH (08:37)
[2021-11-09] MEDS: FLUTICASONE PROP 0.05% NASAL SPRAY 16 GM (FLONASE) NARES SCH ×2 (08:38→20:13)
[2021-11-09] MEDS: HEPARIN SOD (PORCINE) 5000UNITS/ML 1ML VIAL/SYRINGE SC SCH ×2 (08:38→20:13)
[2021-11-09] MEDS: REMEDY PHYTOPLEX Z-GUARD PASTE 113GM TUBE (FROM STOREROOM PRODUCT) TOP SCH ×3 (09:00→20:14)
[2021-11-09] MEDS: MIRALAX *UNIT DOSE* 17GM PACKET PO SCH (09:00)
[2021-11-09] MEDS: IMMUNE GLOBULIN 10% 40 GM in IV 1 EA IV SCH (18:26)
[2021-11-09] MEDS: IMMUNE GLOBULIN 10% 5 GM in IV 1 EA IV SCH (18:27)
--- NOTE | 2021-11-09 18:47 | CR ---
CONSULTATION DATE: 11/09/2021 REFERRING PHYSICIAN: Dr. Brenda Sloan REASON FOR CONSULTATION: Numbness and weakness of arms and legs with difficulty walking. HISTORY OF PRESENT ILLNESS: Chhaya García is a 66-year-old woman who was at her baseline state of health until July 2021. Patient states that she had COVID vaccinations in June 2021. In July 2021 she fell by accident. She was going to the bathroom, and she put her hand on a table, but instead she grabbed a pizza box and fell, resulting in fracture of right fibula, requiring a cast for 4-6 weeks. She thinks that she developed numbness, tingling, incoordination, and weakness of hands around that time or a few days before it. She was wearing a cast for several weeks, and the cast was taken off, but she fell again, requiring hospital admission this time. She was noted to have pelvic fracture and was sent to rehabilitation unit. She also had positive COVID test and spent a few days in COVID unit and was given monoclonal antibodies. She is in the rehabilitation unit now. I was consulted for rapid-onset peripheral neuropathy, as described in history. Patient herself states that she feels that her condition worsened over initial 6 weeks, and she has been stable in her decreased functional state over the last 6 weeks without further worsening. Due to her fractures twice, duration of her symptom progression remains slightly unclear due these confounding factors. She denies any headaches, neck pain, back pain, dysphagia, dysarthria, diplopia, urinary incontinence, loss of consciousness, or seizures. MEDICAL HISTORY: 1. Right fibular fracture in July 2021. 2. Pubic fracture. FAMILY HISTORY: Unremarkable and noncontributory. SOCIAL HISTORY: She is a former smoker and quit smoking a year ago. She denies alcohol or illicit drugs. ALLERGIES: SULFA. REVIEW OF SYSTEMS: Patient states that he has lost 60 pounds over last 3-4 months. Rest of the review of systems is unremarkable except as mentioned in the history of present illness. HOME MEDICATIONS: - alendronate 35 mg once a week - Colace 100 mg by mouth twice a day - Flonase nasal spray one spray each nostril twice a day PHYSICAL EXAMINATION: Temperature 97.8, blood pressure 111/64, pulse 81, respiratory rate 18. HEART: Regular rate and rhythm. LUNGS: Clear to auscultation. ABDOMEN: Soft, nontender, nondistended. No pedal edema. No musculoskeletal abnormalities. No rash. No signs of meningeal irritation. Patient is awake, alert, oriented to place, person, and time. Normal speech, comprehension, and repetition. Extraocular muscles are intact. No facial weakness. Tongue and uvula are midline. Strength in her bilateral deltoid, biceps, triceps, finger flexors is 4/5, and finger extensors are 4-/5. Strength in her bilateral iliopsoas is 3-/5. Quadriceps, hamstrings, bilateral foot dorsi and plantarflexors are 4/5. Deep tendon reflexes are absent in arms and legs except triceps, where they were trace. She has decreased and nearly absent vibration and joint position sensation in her hands and feet. She has severe dysmetria of hands and feet. Her gait is very unsteady, and she needs walker. Romberg testing is positive. DIAGNOSTIC STUDIES: CT scan of lumbar spine and pelvis showed fracture of pubic ramus on right side, L5-S1 degenerative disc disease with bone spurs and severe narrowing of bilateral L5 foramen bilaterally. There is also degenerative disc disease at L4-5 level. CBC showed hemoglobin 10.4 with normal WBC and platelet count. ESR was 49. Metabolic profile was within normal limits. Hemoglobin A1c was 5.5. Liver functions were normal. Vitamin B12 was 394 and B1 is pending. Serum copper level is pending. Lyme antibody is pending. No M spike on SPEP. ASSESSMENT: 1. Generalized weakness, numbness, areflexia with sensory ataxia of arms and legs. 2. 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 Duration of progression is confounded by her two falls resulting in fractures. PLAN: 1. Intravenous immunoglobulins 45 grams daily for 3 days and continue physical and occupational therapy. 2. Electromyelogram (EMG) nerve conduction study of arms and legs on outpatient basis. 3. Continue physical therapy (PT)/occupational therapy (OT), rehabilitation. 4. She is scheduled to be seen in our office in first week of November. We will plan EMG nerve conduction studies on outpatient basis afterward.
[2021-11-09] MEDS: SENNA 8.6 MG TAB (SENOKOT) PO SCH (20:13)
[2021-11-10] VITALS (13 sets, daily range): BP systolic 100–132; BP diastolic 53–76
[2021-11-10] MEDS: METOPROLOL TART 25 MG TABLET PO SCH ×3 (05:20→22:43)
[2021-11-10] MEDS: ALENDRONATE 35MG TABLET PO SCH (07:26)
[2021-11-10] MEDS: COMBIVENT RESPIMAT 100-20MCG INHALER 4GM INH SCH ×3 (08:00→20:52)
[2021-11-10] MEDS: BISACODYL 5 MG TAB PO SCH (09:00)
[2021-11-10] MEDS: DOCUSATE SODIUM 100MG CAPSULE PO SCH ×3 (09:00→20:21)
[2021-11-10] MEDS: REMEDY PHYTOPLEX Z-GUARD PASTE 113GM TUBE (FROM STOREROOM PRODUCT) TOP SCH ×3 (09:00→20:20)
[2021-11-10] MEDS: MIRALAX *UNIT DOSE* 17GM PACKET PO SCH (09:00)
[2021-11-10] MEDS: ACETAMINOPHEN 500 MG TAB PO SCH ×3 (09:40→20:19)
[2021-11-10] MEDS: MAGNESIUM OXIDE 400MG TAB (MAG-OX) PO SCH (09:40)
[2021-11-10] MEDS: PANTOPRAZOLE 40MG TAB (PROTONIX) PO SCH (09:41)
[2021-11-10] MEDS: HEPARIN SOD (PORCINE) 5000UNITS/ML 1ML VIAL/SYRINGE SC SCH ×2 (09:43→20:19)
[2021-11-10] MEDS: FLUTICASONE PROP 0.05% NASAL SPRAY 16 GM (FLONASE) NARES SCH ×2 (09:44→20:19)
[2021-11-10] MEDS: IMMUNE GLOBULIN 10% 40 GM in IV 1 EA IV SCH (17:58)
[2021-11-10] MEDS: SENNA 8.6 MG TAB (SENOKOT) PO SCH (20:20)
[2021-11-10] MEDS: IMMUNE GLOBULIN 10% 5 GM in IV 1 EA IV SCH (21:45)
[2021-11-11] VITALS: BP 116/63
[2021-11-11 05:24] VITALS: BP 119/78
[2021-11-11] MEDS: METOPROLOL TART 25 MG TABLET PO SCH ×3 (05:35→21:17)
[2021-11-11] MEDS: oxyCODONE 5MG TAB PO PRN (06:53)
[2021-11-11] MEDS: COMBIVENT RESPIMAT 100-20MCG INHALER 4GM INH SCH ×3 (07:16→20:00)
[2021-11-11] MEDS: BISACODYL 5 MG TAB PO SCH (07:24)
[2021-11-11] MEDS: DOCUSATE SODIUM 100MG CAPSULE PO SCH ×2 (07:24→21:00)
[2021-11-11] MEDS: MIRALAX *UNIT DOSE* 17GM PACKET PO SCH (07:24)
[2021-11-11] MEDS: PANTOPRAZOLE 40MG TAB (PROTONIX) PO SCH (07:30)
[2021-11-11] MEDS: MAGNESIUM OXIDE 400MG TAB (MAG-OX) PO SCH (07:30)
[2021-11-11] MEDS: ACETAMINOPHEN 500 MG TAB PO SCH ×3 (07:30→21:22)
[2021-11-11] MEDS: HEPARIN SOD (PORCINE) 5000UNITS/ML 1ML VIAL/SYRINGE SC SCH ×2 (07:31→21:13)
[2021-11-11] MEDS: FLUTICASONE PROP 0.05% NASAL SPRAY 16 GM (FLONASE) NARES SCH ×2 (07:32→21:13)
[2021-11-11] MEDS: REMEDY PHYTOPLEX Z-GUARD PASTE 113GM TUBE (FROM STOREROOM PRODUCT) TOP SCH ×3 (07:33→21:14)
[2021-11-11 08:01] LABS: BASO # 0.1 10^3/uL (0.0-0.2); BASO % 1.3 % (0.0-1.0); EOS # 0.1 10^3/uL (0.0-0.5); EOS % 2.1 % (0.0-3.0); HEMATOCRIT 31.1 % (36.0-47.0); HEMOGLOBIN 10.5 g/dl (12.0-15.5); LYMPH % 26.7 % (24.0-44.0); MEAN CORPUSCULAR HEMOGLOBIN 36.1 pg (27.0-33.0); MEAN CORPUSCULAR HGB CONC 33.8 g/dl (32.0-36.5); MEAN CORPUSCULAR VOLUME 106.9 fl (80.0-96.0); MONO # 0.6 10^3/uL (0.0-0.8); MONO % 15.7 % (2.0-8.0); NEUTROPHILS # 2.1 10^3/uL (1.5-8.5); NEUTROPHILS % 53.7 % (36.0-66.0); PLATELET COUNT, AUTOMATED 210 10^3/uL (150-450); RED BLOOD COUNT 2.91 10^6/uL (4.00-5.40); WHITE BLOOD COUNT 3.8 10^3/uL (4.0-10.0)
[2021-11-11 08:16] LABS: BLOOD UREA NITROGEN 10 MG/DL (7-18); C REACTIVE PROTEIN QUANTITATIV 0.81 MG/DL (0.00-0.30); CALCIUM LEVEL 8.5 MG/DL (8.8-10.2); CARBON DIOXIDE LEVEL 25 MEQ/L (21-32); CHLORIDE LEVEL 106 MEQ/L (98-107); CREATININE FOR GFR 0.58 MG/DL (0.55-1.30); GLOMERULAR FILTRATION RATE > 60.0 (>45); GLUCOSE, FASTING 85 MG/DL (70-100); POTASSIUM SERUM 4.3 MEQ/L (3.5-5.1); SODIUM LEVEL 137 MEQ/L (136-145)
[2021-11-11 08:23] LABS: ERYTHROCYTE SEDIMENTATION RATE 81 mm/hr (0-30)
--- NOTE | 2021-11-11 10:22 | IPNPDOC ---
PM&R Progress Note DATE OF SERVICE: Nov 11, 2021 Project Management It Specialist Progress Note Subjective: Patient seen in her room stating her hands and feet feel less numb and she feels stronger since receiving IVIG. REVIEW OF SYSTEMS: The following is a completed review of systems and has been reviewed. Review of systems otherwise unremarkable. PAIN: Patient self reports no pain EYES: No recent vision changes EARS, NOSE, & THROAT: No throat pain, or dysphagia, or rhinorrhea CARDIOVASCULAR: Denies chest pain or palpitations PULMONARY: Denies shortness of breath GASTROINTESTINAL: Denies constipation/diarrhea GENITOURINARY: +urge incontinence (chronic) MUSCULOSKELETAL: pelvic facture with generalized weakness NEUROLOGICAL:+ peripheral polyneuropathy HEMATOLOGICAL: denies easy bruising SKIN: denies rash PSYCHIATRIC: Unremarkable All other review of systems found to be negative. PHYSICAL EXAMINATION: VITAL SIGNS: Please see below. GENERAL: Pleasant and cooperative. No acute distress. thin HEENT: PERRL. Extraocular movements intact. Clear conjunctiva CARDIOVASCULAR: [Regular rate and rhythm. No murmurs, rubs, or gallops LUNGS: Clear to auscultation bilaterally. No wheezes. No rhonchi ABDOMEN: Soft, nontender, nondistended. Positive bowel sounds. Normal active bowel sounds NEUROLOGICAL: Alert and oriented times three. Cranial nerves II through XII grossly intact. Sensation diminished to light touch in all 5 finger tips and bilat tips of toes 1/4 patellar and bicep reflexes (negative Babinski/clonus bilat, negative hoffmans) EXTREMITIES: 5-\\5 strength bilateral upper extremities. 51\\5 strength right lower extremity. 51/5 strength in left lower extremity. SKIN: right ankle medial malleoli with dried wound with dried exudate and [place] thematous base ASSESSMENT:65-year-old F with past medical history of multiple fractures who presents status post fall with right pubic ramus fracture PLAN: 1. Rehab- PT/OT advance mobility and ADLs, strengthen/stretch/maintain ROM all 4 limbs 2. Ortho- s/p fall with right pubic ramus fracture cont WBAT with RW, Fosamax started for osteoporosis, f/u ortho as outpatient - recent right fibular fracture s/p casting and removal, Ankle XR negative for r/o osteomyelitis in setting of medial malleoli wound- and CRP only mildly elevated no concern for osteomyelitis 3. Neuro- patient with hx of dizziness, will ask PT to do vestibular eval and treat prn -patient with bilat hand numbness and foot not in dermatomal pattern or stocking/glove pattern, patient presenting with lower motor neuron signs and non-length dependent neuropathy- (patient does not have hypothyroidism, recent B12 levels WNL, there is concern for paraneoplastic cause given recent weight loss, will defer to neurology on this dx-patient also needs EMG/NCS for further evaluation and has outpatient appointment - obtained cervical imaging showing, " multilevel moderate to severe neural foraminal narrowing" -cont wrist splints qhs there is concomitant carpal tunnel component although exam not consistent with CTS -discussed case with Dr. Riddle who believes patient may had had GBS that progress ed to CIPD as a possible reaction to the Covid, she is now s/p IVIG -f/u Lyme, Copper, B1, B12, and SPEP 4. Cardiac- no hx of HTn, however patient with elevated BPs and tachycardia on inpatient side, cont metoprolol and low dose amlodipine -medicine consulted to assist in overall management 5. Resp- monitor for infection, recent dx of Covid, cont Combivent 6. DVT ppx- heparin and teds, Dopplers negative for DVT bilat LE 7. Pain- standing tylenol, oxycodone prn 8. GI ppx- protonix 9. Endo- patient with low end normal TSH and elevated FT4, has had 60 pound weight loss- thyroid US results showing bilat solid nodules, will refer to endocrine immediately for FNA to r/o malignancy 10. Heme/Onc- patient has had 60 pound weight loss in last 3 months, which could be related to subclinical hyperthyroidism- discussed case with Dr. Howard who recommends endocrine to perform FNA first, will set up referral today and appointment for jessica 11. 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 She will need cont PT and OT to advance her mobility and ADLs to a Mod-I level with RW. Work-up and treatment for her neuropathy is still underway. Allergies Coded Allergies: Sulfa (Sulfonamide Antibiotics) (Verified Allergy, Intermediate, 08/14/21) Vital Signs Vital Signs Date Time Temp Pulse Resp B/P (MAP) Pulse Ox O2 Delivery O2 Flow Rate FiO2 11/11/21 07:30 76 119/78 11/11/21 07:23 16 11/11/21 05:24 98.9 95 Room Air Laboratory Data CBC/BMP Laboratory Tests 11/11/21 06:37 Labs 24H Laboratory Tests 2 11/11/21 06:37: Immature Granulocyte % (Auto) 0.5, Neutrophils (%) (Auto) 53.7, Lymphocytes (%) (Auto) 26.7, Monocytes (%) (Auto) 15.7H, Eosinophils (%) (Auto) 2.1, Basophils (%) (Auto) 1.3H, Neutrophils # (Auto) 2.1, Lymphocytes # (Auto) 1.0L, Monocytes # (Auto) 0.6, Eosinophils # (Auto) 0.1, Basophils # (Auto) 0.1, Nucleated Red Blood Cells % (auto) 0.0, Erythrocyte Sedimentation Rate 81H, Anion Gap 6L, Glomerular Filtration Rate > 60.0, Calcium Level 8.5L, C-Reactive Protein, Quantitative 0.81H Current Medications Current Medications Current Medications Medications (Trade) Dose Ordered Sig/Juan Route PRN Reason Start Time Stop Time Status Last Admin Dose Admin Acetaminophen (Tylenol Tab) 1,000 mg TID PO 11/04/21 21:00 11/11/21 07:30 Albuterol/ Ipratropium (Combivent Respimat 100-20mcg) 1 puff RTID INH 11/04/21 20:00 11/11/21 07:16 Alendronate Sodium (Fosamax) 35 mg Ortega@07 PO 11/10/21 07:00 11/10/21 07:26 Amlodipine Besylate (Norvasc) 2.5 mg DAILY PO 11/05/21 09:00 11/11/21 07:30 Bisacodyl (Dulcolax Suppository) 10 mg DAILYPRN PRN [place] CONSTIPATION 11/05/21 10:15 Bisacodyl (Dulcolax Tab) 5 mg DAILY PO 11/05/21 10:15 11/06/21 08:06 Docusate Sodium (Colace) 100 mg BID PO 11/04/21 21:00 11/06/21 20:28 Fluticasone Propionate (Flonase 0.05% Nasal [place]) 1 spray BID NARES 11/04/21 21:00 11/11/21 07:32 Heparin Sodium (Porcine) (Heparin) 5,000 units Q12H SC 11/04/21 21:00 11/11/21 07:31 Home Med (Home Med List Complete!) ASDIRECTED XX 11/08/21 15:05 11/08/21 15:11 DC Immune Globulin 40 gm/IV Miscellaneous Supplies 400 ml @ 0 mls/hr Q24H IV 11/08/21 18:00 11/10/21 18:01 DC 11/10/21 17:58 Immune Globulin / IV Miscellaneous Supplies 0 ml @ 0 mls/hr ASDIRECTED IV 11/08/21 16:00 11/10/21 16:00 UNV Immune Globulin 5 gm/IV Miscellaneous Supplies 50 ml @ 0 mls/hr Q24H IV 11/08/21 18:00 11/10/21 18:01 DC 11/10/21 21:45 Magnesium Oxide (Mag-Ox) 400 mg DAILY PO 11/05/21 09:00 11/11/21 07:30 Metoprolol Tartrate (Lopressor) 25 mg Q8H PO 11/04/21 22:00 11/11/21 05:35 Oxycodone HCl (Roxicodone, Oxyir) 2.5 mg Q4HP PRN PO MODERATE PAIN (PS 5-7) 11/04/21 14:10 11/11/21 06:53 Pantoprazole Sodium (Protonix) 40 mg DAILY PO 11/05/21 09:00 11/11/21 07:30 Polyethylene Glycol (Miralax) 1 pkt DAILY PO 11/05/21 10:15 11/06/21 08:05 Senna (Senokot) 1 tab QHS PO 11/04/21 21:00 11/05/21 20:13 Zinc Oxide (Balmex Cream) to sacrum TID TOP 11/04/21 21:00 11/06/21 19:50 DC 11/06/21 15:53 LEE CHAUDHRY MD Nov 11, 2021 10:22
[2021-11-11 14:00] VITALS: BP 106/53
[2021-11-11 20:00] VITALS: BP 115/63
[2021-11-11] MEDS: SENNA 8.6 MG TAB (SENOKOT) PO SCH (21:00)
[2021-11-11] MEDS: LIDOCAINE 5% (LIDODERM) PATCH TD SCH (21:14)
[2021-11-12] MEDS: METOPROLOL TART 25 MG TABLET PO SCH ×3 (05:14→21:18)
[2021-11-12 06:00] VITALS: BP 144/83
[2021-11-12] MEDS: COMBIVENT RESPIMAT 100-20MCG INHALER 4GM INH SCH ×3 (07:17→20:00)
[2021-11-12] MEDS: DOCUSATE SODIUM 100MG CAPSULE PO SCH ×2 (09:00→21:00)
[2021-11-12] MEDS: MIRALAX *UNIT DOSE* 17GM PACKET PO SCH (09:00)
[2021-11-12] MEDS: BISACODYL 5 MG TAB PO SCH (09:00)
--- NOTE | 2021-11-12 09:27 | IPNPDOC ---
PM&R Progress Note DATE OF SERVICE: Nov 12, 2021 Carding Machine Feeder Progress Note Subjective: Patient reproting she feels pretty good today, is a little achy but attributes it to exercise. REVIEW OF SYSTEMS: The following is a completed review of systems and has been reviewed. Review of systems otherwise unremarkable. PAIN: Patient self reports no pain EYES: No recent vision changes EARS, NOSE, & THROAT: No throat pain, or dysphagia, or rhinorrhea CARDIOVASCULAR: Denies chest pain or palpitations PULMONARY: Denies shortness of breath GASTROINTESTINAL: Denies constipation/diarrhea GENITOURINARY: +urge incontinence (chronic) MUSCULOSKELETAL: pelvic facture with generalized weakness NEUROLOGICAL:+ peripheral polyneuropathy HEMATOLOGICAL: denies easy bruising SKIN: denies rash PSYCHIATRIC: Unremarkable All other review of systems found to be negative. PHYSICAL EXAMINATION: VITAL SIGNS: Please see below. GENERAL: Pleasant and cooperative. No acute distress. thin HEENT: PERRL. Extraocular movements intact. Clear conjunctiva CARDIOVASCULAR: [Regular rate and rhythm. No murmurs, rubs, or gallops LUNGS: Clear to auscultation bilaterally. No wheezes. No rhonchi ABDOMEN: Soft, nontender, nondistended. Positive bowel sounds. Normal active bowel sounds NEUROLOGICAL: Alert and oriented times three. Cranial nerves II through XII grossly intact. Sensation diminished to light touch in all 5 finger tips and bilat tips of toes 1/4 patellar and bicep reflexes (negative Babinski/clonus bilat, negative hoffmans) EXTREMITIES: 5-\\5 strength bilateral upper extremities. 51\\5 strength right lower extremity. 51/5 strength in left lower extremity. SKIN: right ankle medial malleoli with dried wound with dried exudate and erythematous base ASSESSMENT:65-year-old F with past medical history of multiple fractures who presents status post fall with right pubic ramus fracture PLAN: 1. Rehab- PT/OT advance mobility and ADLs, strengthen/stretch/maintain ROM all 4 limbs 2. Ortho- s/p fall with right pubic ramus fracture cont WBAT with RW, Fosamax started for osteoporosis, f/u ortho as outpatient - recent right fibular fracture s/p casting and removal, Ankle XR negative for r/o osteomyelitis in setting of medial malleoli wound- and CRP only mildly elevated no concern for osteomyelitis 3. Neuro- -patient with bilat hand numbness and foot not in dermatomal pattern or stocking/glove pattern, patient presenting with lower motor neuron signs and non-length dependent neuropathy- (patient does not have hypothyroidism, recent B12 levels WNL, there is concern for paraneoplastic cause given recent weight loss, will defer to neurology on this dx-patient also needs EMG/NCS for further evaluation and has outpatient appointment - obtained cervical imaging showing, " multilevel moderate to severe neural foraminal narrowing" -discussed case with Dr. 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 Cardiac- no hx of HTn, however patient with elevated BPs and tachycardia on inpatient side, cont metoprolol and low dose amlodipine -medicine consulted to assist in overall management 5. Resp- monitor for infection, recent dx of Covid, cont Combivent 6. DVT ppx- heparin and teds, Dopplers negative for DVT bilat LE 7. Pain- standing tylenol, oxycodone prn 8. GI ppx- protonix 9. Endo- patient with low end normal TSH and elevated FT4, has had 60 pound weight loss- thyroid US results showing bilat solid nodules, will refer to endocrine immediately for FNA to r/o malignancy 10. Heme/Onc- patient has had 60 pound weight loss in last 3 months, which could be related to subclinical hyperthyroidism- discussed case with Dr. Howard who recommends endocrine to perform FNA first, will set up referral today and appointment for jessica 11. 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 She will need cont PT and OT to advance her mobility and ADLs to a Mod-I level with RW. Work-up and treatment for her neuropathy is still underway. Allergies Coded Allergies: Sulfa (Sulfonamide Antibiotics) (Verified Allergy, Intermediate, 08/14/21) Vital Signs Vital Signs Date Time Temp Pulse Resp B/P (MAP) Pulse Ox O2 Delivery O2 Flow Rate FiO2 11/12/21 06:00 98.5 77 16 144/83 (103) 97 Room Air Current Medications Current Medications Current Medications Medications (Trade) Dose Ordered Sig/Juan Route PRN Reason Start Time Stop Time Status Last Admin Dose Admin Acetaminophen (Tylenol Tab) 1,000 mg TID PO 11/04/21 21:00 11/11/21 21:22 Albuterol/ Ipratropium (Combivent Respimat 100-20mcg) 1 puff RTID INH 11/04/21 20:00 11/12/21 07:17 Alendronate Sodium (Fosamax) 35 mg Ortega@07 PO 11/10/21 07:00 11/10/21 07:26 Amlodipine Besylate (Norvasc) 2.5 mg DAILY PO 11/05/21 09:00 11/11/21 07:30 Bisacodyl (Dulcolax Suppository) 10 mg DAILYPRN PRN [place] CONSTIPATION 11/05/21 10:15 Bisacodyl (Dulcolax Tab) 5 mg DAILY PO 11/05/21 10:15 11/06/21 08:06 Docusate Sodium (Colace) 100 mg BID PO 11/04/21 21:00 11/06/21 20:28 Fluticasone Propionate (Flonase 0.05% Nasal [place]) 1 spray BID NARES 11/04/21 21:00 11/11/21 21:13 Heparin Sodium (Porcine) (Heparin) 5,000 units Q12H SC 11/04/21 21:00 11/11/21 21:13 Home Med (Home Med List Complete!) ASDIRECTED XX 11/08/21 15:05 11/08/21 15:11 DC Immune Globulin 40 gm/IV Miscellaneous Supplies 400 ml @ 0 mls/hr Q24H IV 11/08/21 18:00 11/10/21 18:01 DC 11/10/21 17:58 Immune Globulin / IV Miscellaneous Supplies 0 ml @ 0 mls/hr ASDIRECTED IV 11/08/21 16:00 11/10/21 16:00 UNV Immune Globulin 5 gm/IV Miscellaneous Supplies 50 ml @ 0 mls/hr Q24H IV 11/08/21 18:00 11/10/21 18:01 DC 11/10/21 21:45 Lidocaine (Lidoderm Patch) 1 patch QHS TD 11/11/21 21:00 11/11/21 21:14 Magnesium Oxide (Mag-Ox) 400 mg DAILY PO 11/05/21 09:00 11/11/21 07:30 Metoprolol Tartrate (Lopressor) 25 mg Q8H PO 11/04/21 22:00 11/12/21 05:14 Non-Formulary Medication ( See Comment Field Below ) REMOVE LIDODERM PATCH DAILY XX 11/12/21 09:00 Oxycodone HCl (Roxicodone, Oxyir) 2.5 mg Q4HP PRN PO MODERATE PAIN (PS 5-7) 11/04/21 14:10 11/11/21 06:53 Pantoprazole Sodium (Protonix) 40 mg DAILY PO 11/05/21 09:00 11/11/21 07:30 Polyethylene Glycol (Miralax) 1 pkt DAILY PO 11/05/21 10:15 11/06/21 08:05 Senna (Senokot) 1 tab QHS PO 11/04/21 21:00 11/05/21 20:13 Zinc Oxide (Balmex Cream) to sacrum TID TOP 11/04/21 21:00 11/06/21 19:50 DC 11/06/21 15:53 LEE CHAUDHRY MD Nov 12, 2021 09:27
[2021-11-12] MEDS: MAGNESIUM OXIDE 400MG TAB (MAG-OX) PO SCH (09:38)
[2021-11-12] MEDS: PANTOPRAZOLE 40MG TAB (PROTONIX) PO SCH (09:38)
[2021-11-12] MEDS: HEPARIN SOD (PORCINE) 5000UNITS/ML 1ML VIAL/SYRINGE SC SCH ×2 (09:40→21:19)
[2021-11-12] MEDS: FLUTICASONE PROP 0.05% NASAL SPRAY 16 GM (FLONASE) NARES SCH ×2 (09:41→21:21)
[2021-11-12] MEDS: ACETAMINOPHEN 500 MG TAB PO SCH ×3 (09:41→21:20)
[2021-11-12] MEDS: **NOTE PATIENT COMMENT** MISC XX SCH (09:41)
[2021-11-12] MEDS: REMEDY PHYTOPLEX Z-GUARD PASTE 113GM TUBE (FROM STOREROOM PRODUCT) TOP SCH ×3 (09:42→21:22)
[2021-11-12 14:00] VITALS: BP 110/72
[2021-11-12 20:00] VITALS: BP 122/65
[2021-11-12] MEDS: SENNA 8.6 MG TAB (SENOKOT) PO SCH (21:00)
[2021-11-12] MEDS: LIDOCAINE 5% (LIDODERM) PATCH TD SCH (21:19)
[2021-11-12] MEDS: oxyCODONE 5MG TAB PO PRN (21:21)
[2021-11-13 05:12] VITALS: BP 129/74
[2021-11-13] MEDS: METOPROLOL TART 25 MG TABLET PO SCH ×3 (05:52→20:55)
[2021-11-13 06:36] LABS: BASO % 0.7 % (0.0-1.0); EOS % 0.5 % (0.0-3.0); HEMATOCRIT 32.9 % (36.0-47.0); HEMOGLOBIN 11.3 g/dl (12.0-15.5); LYMPH # 1.5 10^3/uL (1.5-5.0); LYMPH % 34.5 % (24.0-44.0); MEAN CORPUSCULAR HEMOGLOBIN 35.9 pg (27.0-33.0); MEAN CORPUSCULAR HGB CONC 34.3 g/dl (32.0-36.5); MEAN CORPUSCULAR VOLUME 104.4 fl (80.0-96.0); MONO # 0.7 10^3/uL (0.0-0.8); MONO % 15.8 % (2.0-8.0); NEUTROPHILS # 2.1 10^3/uL (1.5-8.5); NEUTROPHILS % 48.3 % (36.0-66.0); PLATELET COUNT, AUTOMATED 194 10^3/uL (150-450); RED BLOOD COUNT 3.15 10^6/uL (4.00-5.40); WHITE BLOOD COUNT 4.4 10^3/uL (4.0-10.0)
[2021-11-13 06:57] LABS: BLOOD UREA NITROGEN 13 MG/DL (7-18); CALCIUM LEVEL 8.7 MG/DL (8.8-10.2); CARBON DIOXIDE LEVEL 27 MEQ/L (21-32); CHLORIDE LEVEL 104 MEQ/L (98-107); CREATININE FOR GFR 0.58 MG/DL (0.55-1.30); GLOMERULAR FILTRATION RATE > 60.0 (>45); GLUCOSE, FASTING 102 MG/DL (70-100); POTASSIUM SERUM 3.7 MEQ/L (3.5-5.1); SODIUM LEVEL 138 MEQ/L (136-145)
[2021-11-13] MEDS: DOCUSATE SODIUM 100MG CAPSULE PO SCH ×2 (08:17→20:52)
[2021-11-13] MEDS: MAGNESIUM OXIDE 400MG TAB (MAG-OX) PO SCH (08:17)
[2021-11-13] MEDS: MIRALAX *UNIT DOSE* 17GM PACKET PO SCH (08:17)
[2021-11-13] MEDS: BISACODYL 5 MG TAB PO SCH (08:17)
[2021-11-13] MEDS: PANTOPRAZOLE 40MG TAB (PROTONIX) PO SCH (08:17)
[2021-11-13] MEDS: ACETAMINOPHEN 500 MG TAB PO SCH ×3 (08:18→20:53)
[2021-11-13] MEDS: FLUTICASONE PROP 0.05% NASAL SPRAY 16 GM (FLONASE) NARES SCH ×2 (08:18→20:55)
[2021-11-13] MEDS: REMEDY PHYTOPLEX Z-GUARD PASTE 113GM TUBE (FROM STOREROOM PRODUCT) TOP SCH ×3 (08:18→20:55)
[2021-11-13] MEDS: HEPARIN SOD (PORCINE) 5000UNITS/ML 1ML VIAL/SYRINGE SC SCH ×2 (08:18→20:54)
[2021-11-13] MEDS: **NOTE PATIENT COMMENT** MISC XX SCH (08:19)
[2021-11-13] MEDS: COMBIVENT RESPIMAT 100-20MCG INHALER 4GM INH SCH ×3 (08:51→20:00)
--- NOTE | 2021-11-13 09:26 | IPNPDOC ---
PM&R Progress Note DATE OF SERVICE: Nov 13, 2021 Project Management Analyst Progress Note Subjective: Patient seen in her room with no formal complaints. REVIEW OF SYSTEMS: The following is a completed review of systems and has been reviewed. Review of systems otherwise unremarkable. PAIN: Patient self reports no pain EYES: No recent vision changes EARS, NOSE, & THROAT: No throat pain, or dysphagia, or rhinorrhea CARDIOVASCULAR: Denies chest pain or palpitations PULMONARY: Denies shortness of breath GASTROINTESTINAL: Denies constipation/diarrhea GENITOURINARY: +urge incontinence (chronic) MUSCULOSKELETAL: pelvic facture with generalized weakness NEUROLOGICAL:+ peripheral polyneuropathy HEMATOLOGICAL: denies easy bruising SKIN: denies rash PSYCHIATRIC: Unremarkable All other review of systems found to be negative. PHYSICAL EXAMINATION: VITAL SIGNS: Please see below. GENERAL: Pleasant and cooperative. No acute distress. thin HEENT: PERRL. Extraocular movements intact. Clear conjunctiva CARDIOVASCULAR: [Regular rate and rhythm. No murmurs, rubs, or gallops LUNGS: Clear to auscultation bilaterally. No wheezes. No rhonchi ABDOMEN: Soft, nontender, nondistended. Positive bowel sounds. Normal active bowel sounds NEUROLOGICAL: Alert and oriented times three. Cranial nerves II through XII grossly intact. Sensation diminished to light touch in all 5 finger tips and bilat tips of toes 1/4 patellar and bicep reflexes (negative Babinski/clonus bilat, negative hoffmans) EXTREMITIES: 5-\\5 strength bilateral upper extremities. 51\\5 strength right lower extremity. 51/5 strength in left lower extremity. SKIN: right ankle medial malleoli with dried wound with dried exudate and erythematous base ASSESSMENT:65-year-old F with past medical history of multiple fractures who presents status post fall with right pubic ramus fracture PLAN: 1. Rehab- PT/OT advance mobility and ADLs, strengthen/stretch/maintain ROM all 4 limbs 2. Ortho- s/p fall with right pubic ramus fracture cont WBAT with RW, Fosamax started for osteoporosis, f/u ortho as outpatient - recent right fibular fracture s/p casting and removal, Ankle XR negative for r/o osteomyelitis in setting of medial malleoli wound- and CRP only mildly elevated no concern for osteomyelitis 3. Neuro- -patient with bilat hand numbness and foot not in dermatomal pattern or stocking /glove pattern, patient presenting with lower motor neuron signs and non-length dependent neuropathy- (patient does not have hypothyroidism, recent B12 levels WNL, there is concern for paraneoplastic cause given recent weight loss, will defer to neurology on this dx-patient also needs EMG/NCS for further evaluation and has outpatient appointment - obtained cervical imaging showing, "multilevel moderate to severe neural foraminal narrowing" -discussed case with Dr. 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 Cardiac- no hx of HTn, however patient with elevated BPs and tachycardia on inpatient side, cont metoprolol and low dose amlodipine -medicine consulted to assist in overall management 5. Resp- monitor for infection, recent dx of Covid, cont Combivent 6. DVT ppx- heparin and teds, Dopplers negative for DVT bilat LE 7. Pain- standing tylenol, oxycodone prn 8. GI ppx- protonix 9. Endo- patient with low end normal TSH and elevated FT4, has had 60 pound weight loss- thyroid US results showing bilat solid nodules, will refer to endocrine immediately for FNA to r/o malignancy 10. Heme/Onc- patient has had 60 pound weight loss in last 3 months, which could be related to subclinical hyperthyroidism- discussed case with Dr. Howard who recommends endocrine to perform FNA first, will set up referral today and appointment for jessica 11. 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 She will need cont PT and OT to advance her mobility and ADLs to a Mod-I level with RW short distances and Mod-I from wheelchair level ion her home . Work-up and treatment for her neuropathy is still underway. Allergies Coded Allergies: Sulfa (Sulfonamide Antibiotics) (Verified Allergy, Intermediate, 08/14/21) Vital Signs Vital Signs Date Time Temp Pulse Resp B/P (MAP) Pulse Ox O2 Delivery O2 Flow Rate FiO2 11/13/21 08:17 78 129/74 11/13/21 05:12 97.3 18 93 Room Air Laboratory Data CBC/BMP Laboratory Tests 11/13/21 05:56 Labs 24H Laboratory Tests 2 11/13/21 05:56: Immature Granulocyte % (Auto) 0.2, Neutrophils (%) (Auto) 48.3, Lymphocytes (%) (Auto) 34.5, Monocytes (%) (Auto) 15.8H, Eosinophils (%) (Auto) 0.5, Basophils (%) (Auto) 0.7, Neutrophils # (Auto) 2.1, Lymphocytes # (Auto) 1.5, Monocytes # (Auto) 0.7, Eosinophils # (Auto) 0.0, Basophils # (Auto) 0.0, Nucleated Red Blood Cells % (auto) 0.0, Anion Gap 7L, Glomerular Filtration Rate > 60.0, Calcium Level 8.7L Current Medications Current Medications Current Medications Medications (Trade) Dose Ordered Sig/Juan Route PRN Reason Start Time Stop Time Status Last Admin Dose Admin Acetaminophen (Tylenol Tab) 1,000 mg TID PO 11/04/21 21:00 11/13/21 08:18 Albuterol/ Ipratropium (Combivent Respimat 100-20mcg) 1 puff RTID INH 11/04/21 20:00 11/13/21 08:51 Alendronate Sodium (Fosamax) 35 mg Ortega@07 PO 11/10/21 07:00 11/10/21 07:26 Amlodipine Besylate (Norvasc) 2.5 mg DAILY PO 11/05/21 09:00 11/13/21 08:17 Bisacodyl (Dulcolax Suppository) 10 mg DAILYPRN PRN [place] CONSTIPATION 11/05/21 10:15 Bisacodyl (Dulcolax Tab) 5 mg DAILY PO 11/05/21 10:15 11/06/21 08:06 Docusate Sodium (Colace) 100 mg BID PO 11/04/21 21:00 11/06/21 20:28 Fluticasone Propionate (Flonase 0.05% Nasal [place]) 1 spray BID NARES 11/04/21 21:00 11/13/21 08:18 Heparin Sodium (Porcine) (Heparin) 5,000 units Q12H SC 11/04/21 21:00 11/13/21 08:18 Home Med (Home Med List Complete!) ASDIRECTED XX 11/08/21 15:05 11/08/21 15:11 DC Immune Globulin 40 gm/IV Miscellaneous Supplies 400 ml @ 0 mls/hr Q24H IV 11/08/21 18:00 11/10/21 18:01 DC 11/10/21 17:58 Immune Globulin / IV Miscellaneous Supplies 0 ml @ 0 mls/hr ASDIRECTED IV 11/08/21 16:00 11/10/21 16:00 UNV Immune Globulin 5 gm/IV Miscellaneous Supplies 50 ml @ 0 mls/hr Q24H IV 11/08/21 18:00 11/10/21 18:01 DC 11/10/21 21:45 Lidocaine (Lidoderm Patch) 1 patch QHS TD 11/11/21 21:00 11/12/21 21:19 Magnesium Oxide (Mag-Ox) 400 mg DAILY PO 11/05/21 09:00 11/13/21 08:17 Metoprolol Tartrate (Lopressor) 25 mg Q8H PO 11/04/21 22:00 11/13/21 05:52 Non-Formulary Medication ( See Comment Field Below ) REMOVE LIDODERM PATCH DAILY XX 11/12/21 09:00 11/13/21 08:19 Oxycodone HCl (Roxicodone, Oxyir) 2.5 mg Q4HP PRN PO MODERATE PAIN (PS 5-7) 11/04/21 14:10 11/12/21 21:21 Pantoprazole Sodium (Protonix) 40 mg DAILY PO 11/05/21 09:00 11/13/21 08:17 Polyethylene Glycol (Miralax) 1 pkt DAILY PO 11/05/21 10:15 11/06/21 08:05 Senna (Senokot) 1 tab QHS PO 11/04/21 21:00 11/05/21 20:13 Zinc Oxide (Balmex Cream) to sacrum TID TOP 11/04/21 21:00 11/06/21 19:50 DC 11/06/21 15:53 LEE CHAUDHRY MD Nov 13, 2021 09:26
[2021-11-13 13:06] VITALS: BP 114/72
[2021-11-13 20:00] VITALS: BP 99/54
[2021-11-13] MEDS: SENNA 8.6 MG TAB (SENOKOT) PO SCH (20:52)
[2021-11-13] MEDS: LIDOCAINE 5% (LIDODERM) PATCH TD SCH (20:55)
[2021-11-14] MEDS: METOPROLOL TART 25 MG TABLET PO SCH ×3 (05:58→20:52)
[2021-11-14 06:00] VITALS: BP 128/61
[2021-11-14] MEDS: MIRALAX *UNIT DOSE* 17GM PACKET PO SCH (07:12)
[2021-11-14] MEDS: DOCUSATE SODIUM 100MG CAPSULE PO SCH ×2 (07:12→20:45)
[2021-11-14] MEDS: BISACODYL 5 MG TAB PO SCH (07:12)
[2021-11-14] MEDS: PANTOPRAZOLE 40MG TAB (PROTONIX) PO SCH (07:21)
[2021-11-14] MEDS: HEPARIN SOD (PORCINE) 5000UNITS/ML 1ML VIAL/SYRINGE SC SCH ×2 (07:21→20:52)
[2021-11-14] MEDS: FLUTICASONE PROP 0.05% NASAL SPRAY 16 GM (FLONASE) NARES SCH ×2 (07:21→20:52)
[2021-11-14] MEDS: MAGNESIUM OXIDE 400MG TAB (MAG-OX) PO SCH (07:21)
[2021-11-14] MEDS: ACETAMINOPHEN 500 MG TAB PO SCH ×3 (07:21→20:52)
[2021-11-14] MEDS: REMEDY PHYTOPLEX Z-GUARD PASTE 113GM TUBE (FROM STOREROOM PRODUCT) TOP SCH ×3 (07:22→20:59)
[2021-11-14] MEDS: **NOTE PATIENT COMMENT** MISC XX SCH (07:22)
[2021-11-14] MEDS: COMBIVENT RESPIMAT 100-20MCG INHALER 4GM INH SCH ×2 (08:00→20:24)
--- NOTE | 2021-11-14 12:40 | IPNPDOC ---
Text Note Date of Service The patient was seen on 11/14/21. NOTE Patient was seen and examined at the bedside. No overnight events participating with therapy Objective: General: Lying in bed, comfortable, AAOx3 HEENT: NC, AT CVS: RRR, +S1S2 Lungs: Fair air entry b/l, -w/r/r Abdomen: Soft, ND, NT Extremities: - Edema, - Calf tenderness Imaging: Ankle XR 11/06: Healing fracture of the distal fibula along with stable age-related changes. No obvious radiographic evidence to suggest osteomyelitis. Cervical spine CT 11/06: Degenerative disc disease and spondylosis as described, with multilevel moderate to severe neural foraminal narrowing. Assessment and plan: Patient is a 65 year old female with no significant PMHx who presented to the ER on 10/24 after she had fallen. In the ER, patient had imaging completed that was consistent with a R pubic rami fracture. Patient was also found to be COVID19 positive but not hypoxic. Patient was admitted to the hospital service for further evaluation and treatment. Orthopedic surgery was called on consultation. Patient's pubic rami fracture was managed nonoperatively. Patient was consulted for Escherichia coli UTI was treated with Levaquin. Patient is receiving antibody infusion for her COVID19 infection. She was ultimately transitioned to acute rehabilitation unit on 11/04. 1 right inferior pubic ramus fracture - likely 2/2 mechanical fall - Clinically patient denies any significant pain - Orthopedic surgery had evaluated patient, when she was inpatient recommended conservative measures - c/w Oxycodone PRN - c/w PT and OT as per ARU 2 s/p E. coli UTI - s/p Levofloxacin 3 bilateral hand numbness/ Dizziness / Unsteady gait - Imaging noted above - Neurology has seen the patient and there is some concern of paraneoplastic picture given this bilateral hand numbness and weight loss for which the patient be followed up by the PCP. The patient would also require an EMG which will be set up by the neurology. - c/w PT and OT as per ARU - Neurology has been consulted by ARU 4 history of multiple fractures - c/w Alendronate 5 COVID19 positive - Asymptomatic - Not hypoxic - s/p Monoclonal antibody infusion 6 unintentional weight loss - Patient was that she has received screening colonoscopies, mammograms and Pap smears at regular intervals - She notes that all of which have been relatively normal 7 subclinical hypothyroidism - TSH normal - Free T4 elevated - Will repeat lab work in 2-3 weeks 8 HTN - BP well controlled - c/w Amlodipine / Metoprolol 9 GERD - c/w Protonix 10 DVT prophylaxis - c/w Heparin Disposition: - As per ARU VS,Fishbone, I+O VS, Fishbone, I+O Vital Signs Date Time Temp Pulse Resp B/P (MAP) Pulse Ox O2 Delivery O2 Flow Rate FiO2 11/14/21 07:21 76 128/61 11/14/21 06:00 96.6 16 97 Room Air I&O- Last 24 Hours up to 6 AM 11/14/21 06:00 Intake Total 700 ml Balance 700 ml BHAVIN ZAFAR MD Nov 14, 2021 12:40
[2021-11-14 14:00] VITALS: BP 122/72
[2021-11-14 20:00] VITALS: BP 117/68
[2021-11-14] MEDS: SENNA 8.6 MG TAB (SENOKOT) PO SCH (20:45)
[2021-11-14] MEDS: LIDOCAINE 5% (LIDODERM) PATCH TD SCH (20:59)
[2021-11-15 06:00] VITALS: BP 125/73
[2021-11-15] MEDS: METOPROLOL TART 25 MG TABLET PO SCH ×3 (06:02→21:30)
[2021-11-15 06:14] LABS: HEMOGLOBIN 11.3 g/dl (12.0-15.5); MEAN CORPUSCULAR HEMOGLOBIN 35.8 pg (27.0-33.0); MEAN CORPUSCULAR HGB CONC 34.2 g/dl (32.0-36.5); MEAN CORPUSCULAR VOLUME 104.4 fl (80.0-96.0); PLATELET COUNT, AUTOMATED 180 10^3/uL (150-450); RED BLOOD COUNT 3.16 10^6/uL (4.00-5.40); WHITE BLOOD COUNT 5.1 10^3/uL (4.0-10.0)
[2021-11-15 06:42] LABS: BLOOD UREA NITROGEN 13 MG/DL (7-18); CALCIUM LEVEL 8.9 MG/DL (8.8-10.2); CARBON DIOXIDE LEVEL 27 MEQ/L (21-32); CHLORIDE LEVEL 104 MEQ/L (98-107); CREATININE FOR GFR 0.62 MG/DL (0.55-1.30); GLOMERULAR FILTRATION RATE > 60.0 (>45); GLUCOSE, FASTING 110 MG/DL (70-100); POTASSIUM SERUM 3.8 MEQ/L (3.5-5.1); SODIUM LEVEL 138 MEQ/L (136-145)
[2021-11-15 07:19] LABS: ATYPICAL LYMPH 1 % (0-5); BASOPHILS 1 % (0-1); LYMPHOCYTES 25 % (16-44); MONOCYTES 11 % (0-5); NEUTROPHILS 62 % (28-66); PLATELET ESTIMATE NORMAL (NORMAL)
[2021-11-15] MEDS: COMBIVENT RESPIMAT 100-20MCG INHALER 4GM INH SCH ×3 (07:29→20:53)
[2021-11-15] MEDS: MAGNESIUM OXIDE 400MG TAB (MAG-OX) PO SCH (07:47)
[2021-11-15] MEDS: PANTOPRAZOLE 40MG TAB (PROTONIX) PO SCH (07:47)
[2021-11-15] MEDS: ACETAMINOPHEN 500 MG TAB PO SCH ×3 (07:47→21:28)
[2021-11-15] MEDS: HEPARIN SOD (PORCINE) 5000UNITS/ML 1ML VIAL/SYRINGE SC SCH ×2 (07:48→21:31)
[2021-11-15] MEDS: FLUTICASONE PROP 0.05% NASAL SPRAY 16 GM (FLONASE) NARES SCH ×2 (07:49→21:31)
[2021-11-15] MEDS: **NOTE PATIENT COMMENT** MISC XX SCH (07:49)
[2021-11-15] MEDS: BISACODYL 5 MG TAB PO SCH (07:51)
[2021-11-15] MEDS: REMEDY PHYTOPLEX Z-GUARD PASTE 113GM TUBE (FROM STOREROOM PRODUCT) TOP SCH ×3 (07:51→21:32)
[2021-11-15] MEDS: MIRALAX *UNIT DOSE* 17GM PACKET PO SCH (07:51)
[2021-11-15] MEDS: DOCUSATE SODIUM 100MG CAPSULE PO SCH ×2 (07:51→21:00)
[2021-11-15] MEDS: oxyCODONE 5MG TAB PO PRN (12:14)
[2021-11-15 14:00] VITALS: BP 108/65
[2021-11-15 15:10] LABS: COPPER PLASMA 121 ug/dL (80-158); Lyme Disease IgG/IgM Antibodie <0.91 ISR (0.00-0.90); Lyme Disease IgM Ab Quantitati <0.80 index (0.00-0.79); VITAMIN B1 LEVEL WHOLE BLOOD 107.9 nmol/L (66.5-200.0)
[2021-11-15 20:00] VITALS: BP 99/59
[2021-11-15] MEDS: SENNA 8.6 MG TAB (SENOKOT) PO SCH (21:00)
[2021-11-15 21:30] VITALS: BP 122/78
[2021-11-15] MEDS: LIDOCAINE 5% (LIDODERM) PATCH TD SCH (21:31)
[2021-11-16] MEDS: METOPROLOL TART 25 MG TABLET PO SCH ×3 (05:21→22:00)
[2021-11-16 06:00] VITALS: BP 120/64
[2021-11-16] MEDS: COMBIVENT RESPIMAT 100-20MCG INHALER 4GM INH SCH ×3 (08:00→20:00)
[2021-11-16] MEDS: BISACODYL 5 MG TAB PO SCH (09:00)
[2021-11-16] MEDS: MIRALAX *UNIT DOSE* 17GM PACKET PO SCH (09:00)
[2021-11-16] MEDS: DOCUSATE SODIUM 100MG CAPSULE PO SCH ×2 (09:00→22:02)
[2021-11-16] MEDS: PANTOPRAZOLE 40MG TAB (PROTONIX) PO SCH (09:45)
[2021-11-16] MEDS: MAGNESIUM OXIDE 400MG TAB (MAG-OX) PO SCH (09:45)
[2021-11-16] MEDS: ACETAMINOPHEN 500 MG TAB PO SCH ×3 (09:46→22:02)
[2021-11-16] MEDS: REMEDY PHYTOPLEX Z-GUARD PASTE 113GM TUBE (FROM STOREROOM PRODUCT) TOP SCH ×3 (09:47→22:06)
[2021-11-16] MEDS: **NOTE PATIENT COMMENT** MISC XX SCH (09:47)
[2021-11-16] MEDS: HEPARIN SOD (PORCINE) 5000UNITS/ML 1ML VIAL/SYRINGE SC SCH ×2 (09:47→22:03)
[2021-11-16] MEDS: FLUTICASONE PROP 0.05% NASAL SPRAY 16 GM (FLONASE) NARES SCH ×2 (09:50→22:03)
[2021-11-16 14:00] VITALS: BP 135/79
[2021-11-16] MEDS: oxyCODONE 5MG TAB PO PRN (14:53)
[2021-11-16 20:00] VITALS: BP 108/62
[2021-11-16] MEDS: LIDOCAINE 5% (LIDODERM) PATCH TD SCH (22:01)
[2021-11-16] MEDS: SENNA 8.6 MG TAB (SENOKOT) PO SCH (22:02)
[2021-11-17 06:00] VITALS: BP 116/76
[2021-11-17] MEDS: METOPROLOL TART 25 MG TABLET PO SCH ×3 (06:03→22:17)
[2021-11-17] MEDS: ALENDRONATE 35MG TABLET PO SCH (06:03)
[2021-11-17] MEDS: HEPARIN SOD (PORCINE) 5000UNITS/ML 1ML VIAL/SYRINGE SC SCH ×2 (08:41→22:16)
[2021-11-17] MEDS: ACETAMINOPHEN 500 MG TAB PO SCH ×3 (08:42→22:16)
[2021-11-17] MEDS: PANTOPRAZOLE 40MG TAB (PROTONIX) PO SCH (08:42)
[2021-11-17] MEDS: FLUTICASONE PROP 0.05% NASAL SPRAY 16 GM (FLONASE) NARES SCH ×2 (08:43→22:18)
[2021-11-17] MEDS: MAGNESIUM OXIDE 400MG TAB (MAG-OX) PO SCH (08:43)
[2021-11-17] MEDS: REMEDY PHYTOPLEX Z-GUARD PASTE 113GM TUBE (FROM STOREROOM PRODUCT) TOP SCH ×3 (08:44→22:17)
[2021-11-17] MEDS: **NOTE PATIENT COMMENT** MISC XX SCH (08:44)
[2021-11-17] MEDS: COMBIVENT RESPIMAT 100-20MCG INHALER 4GM INH SCH ×3 (08:47→20:37)
[2021-11-17] MEDS: MIRALAX *UNIT DOSE* 17GM PACKET PO SCH (08:49)
[2021-11-17] MEDS: BISACODYL 5 MG TAB PO SCH (08:49)
[2021-11-17] MEDS: DOCUSATE SODIUM 100MG CAPSULE PO SCH ×2 (08:49→22:09)
[2021-11-17 14:00] VITALS: BP 145/90
[2021-11-17 20:00] VITALS: BP 136/95
[2021-11-17] MEDS: SENNA 8.6 MG TAB (SENOKOT) PO SCH (22:10)
[2021-11-17] MEDS: LIDOCAINE 5% (LIDODERM) PATCH TD SCH (22:15)
[2021-11-18 04:00] VITALS: BP 146/81
[2021-11-18] MEDS: METOPROLOL TART 25 MG TABLET PO SCH ×3 (05:23→21:15)
[2021-11-18 06:03] LABS: HEMATOCRIT 34.2 % (36.0-47.0); HEMOGLOBIN 11.5 g/dl (12.0-15.5); MEAN CORPUSCULAR HEMOGLOBIN 34.7 pg (27.0-33.0); MEAN CORPUSCULAR HGB CONC 33.6 g/dl (32.0-36.5); MEAN CORPUSCULAR VOLUME 103.3 fl (80.0-96.0); PLATELET COUNT, AUTOMATED 171 10^3/uL (150-450); RED BLOOD COUNT 3.31 10^6/uL (4.00-5.40); WHITE BLOOD COUNT 3.6 10^3/uL (4.0-10.0)
[2021-11-18 06:29] LABS: BLOOD UREA NITROGEN 12 MG/DL (7-18); CALCIUM LEVEL 9.1 MG/DL (8.8-10.2); CARBON DIOXIDE LEVEL 28 MEQ/L (21-32); CHLORIDE LEVEL 105 MEQ/L (98-107); CREATININE FOR GFR 0.63 MG/DL (0.55-1.30); GLOMERULAR FILTRATION RATE > 60.0 (>45); GLUCOSE, FASTING 93 MG/DL (70-100); POTASSIUM SERUM 4.3 MEQ/L (3.5-5.1); SODIUM LEVEL 138 MEQ/L (136-145)
[2021-11-18 07:48] LABS: BASOPHILS 1 % (0-1); EOSINOPHILS 1 % (0-3); LYMPHOCYTES 50 % (16-44); MONOCYTES 11 % (0-5); NEUTROPHILS 37 % (28-66); PLATELET ESTIMATE NORMAL (NORMAL)
[2021-11-18] MEDS: COMBIVENT RESPIMAT 100-20MCG INHALER 4GM INH SCH ×3 (07:56→21:23)
[2021-11-18] MEDS: DOCUSATE SODIUM 100MG CAPSULE PO SCH ×2 (09:00→21:00)
[2021-11-18] MEDS: MIRALAX *UNIT DOSE* 17GM PACKET PO SCH (09:00)
[2021-11-18] MEDS: BISACODYL 5 MG TAB PO SCH (09:00)
[2021-11-18] MEDS: PANTOPRAZOLE 40MG TAB (PROTONIX) PO SCH (09:46)
[2021-11-18] MEDS: MAGNESIUM OXIDE 400MG TAB (MAG-OX) PO SCH (09:46)
[2021-11-18] MEDS: **NOTE PATIENT COMMENT** MISC XX SCH (09:47)
[2021-11-18] MEDS: HEPARIN SOD (PORCINE) 5000UNITS/ML 1ML VIAL/SYRINGE SC SCH ×2 (09:47→21:15)
[2021-11-18] MEDS: ACETAMINOPHEN 500 MG TAB PO SCH ×3 (09:48→21:14)
[2021-11-18] MEDS: FLUTICASONE PROP 0.05% NASAL SPRAY 16 GM (FLONASE) NARES SCH ×2 (09:52→21:16)
[2021-11-18] MEDS: REMEDY PHYTOPLEX Z-GUARD PASTE 113GM TUBE (FROM STOREROOM PRODUCT) TOP SCH ×3 (09:52→21:15)
[2021-11-18 14:00] VITALS: BP 129/76
--- NOTE | 2021-11-18 16:06 | IPNPDOC ---
PM&R Progress Note DATE OF SERVICE: Nov 18, 2021 Addiction Medicine Physician Progress Note Subjective: Patient seen in her room stating she continues to feel she is getting stronger. REVIEW OF SYSTEMS: The following is a completed review of systems and has been reviewed. Review of systems otherwise unremarkable. PAIN: Patient self reports no pain EYES: No recent vision changes EARS, NOSE, & THROAT: No throat pain, or dysphagia, or rhinorrhea CARDIOVASCULAR: Denies chest pain or palpitations PULMONARY: Denies shortness of breath GASTROINTESTINAL: Denies constipation/diarrhea GENITOURINARY: +urge incontinence (chronic) MUSCULOSKELETAL: pelvic facture with generalized weakness NEUROLOGICAL:+ peripheral polyneuropathy HEMATOLOGICAL: denies easy bruising SKIN: denies rash PSYCHIATRIC: Unremarkable All other review of systems found to be negative. PHYSICAL EXAMINATION: VITAL SIGNS: Please see below. GENERAL: Pleasant and cooperative. No acute distress. thin HEENT: PERRL. Extraocular movements intact. Clear conjunctiva CARDIOVASCULAR: [Regular rate and rhythm. No murmurs, rubs, or gallops LUNGS: Clear to auscultation bilaterally. No wheezes. No rhonchi ABDOMEN: Soft, nontender, nondistended. Positive bowel sounds. Normal active bowel sounds NEUROLOGICAL: Alert and oriented times three. Cranial nerves II through XII grossly intact. Sensation diminished to light touch in all 5 finger tips and bilat tips of toes 1/4 patellar and bicep reflexes (negative Babinski/clonus bilat, negative hoffmans) EXTREMITIES: 5-\\5 strength bilateral upper extremities. 51\\5 strength right lower extremity. 51/5 strength in left lower extremity. SKIN: right ankle medial malleoli with dried wound with dried exudate and erythematous base ASSESSMENT:65-year-old F with past medical history of multiple fractures who presents status post fall with right pubic ramus fracture PLAN: 1. Rehab- PT/OT advance mobility and ADLs, strengthen/stretch/maintain ROM all 4 limbs 2. Ortho- s/p fall with right pubic ramus fracture cont WBAT with RW, Fosamax started for osteoporosis, f/u ortho as outpatient - recent right fibular fracture s/p casting and removal, Ankle XR negative for r/o osteomyelitis in setting of medial malleoli wound- and CRP only mildly e levated no concern for osteomyelitis 3. Neuro- -patient with bilat hand numbness and foot not in dermatomal pattern or stocking/glove pattern, patient presenting with lower motor neuron signs and non-length dependent neuropathy- (patient does not have hypothyroidism, recent B12 levels WNL, there is concern for paraneoplastic cause given recent weight loss, will defer to neurology on this dx-patient also needs EMG/NCS for further evaluation and has outpatient appointment - obtained cervical imaging showing, " multilevel moderate to severe neural foraminal narrowing" -discussed case with Dr. 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 Cardiac- no hx of HTn, however patient with elevated BPs and tachycardia on inpatient side, cont metoprolol and low dose amlodipine -medicine consulted to assist in overall management 5. Resp- monitor for infection, recent dx of Covid, cont Combivent 6. DVT ppx- heparin and teds, Dopplers negative for DVT bilat LE 7. Pain- standing tylenol, oxycodone prn 8. GI ppx- protonix 9. Endo- patient with low end normal TSH and elevated FT4, has had 60 pound weight loss- thyroid US results showing bilat solid nodules, will refer to endocrine immediately for FNA to r/o malignancy 10. Heme/Onc- patient has had 60 pound weight loss in last 3 months, which could be related to subclinical hyperthyroidism- discussed case with Dr. Howard who recommends endocrine to perform FNA first, will set up referral today and appointment for jessica 11. 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 Sh ie now Mod-I from wheelchair level and ready for d/c to home 11-20-21. DME Patient will require a wheelchair to complete her MRADLs in a timely and safe manner. Her home is wheelchair accessible, she is agreeable to use one and she has family who will assist her. She is unable to complete her MRADLs with a walker or cane safely. Allergies Coded Allergies: Sulfa (Sulfonamide Antibiotics) (Verified Allergy, Intermediate, 08/14/21) Vital Signs Vital Signs Date Time Temp Pulse Resp B/P (MAP) Pulse Ox O2 Delivery O2 Flow Rate FiO2 11/18/21 14:01 85 129/76 11/18/21 14:00 97.6 18 99 Room Air Laboratory Data CBC/BMP Laboratory Tests 11/18/21 05:33 Labs 24H Laboratory Tests 2 11/18/21 05:33: Neutrophils (%) (Auto) , Nucleated Red Blood Cells % (auto) 0.0, Neutrophils 37, Lymphocytes (Manual) 50H, Monocytes (Manual) 11H, Eosinophils (Manual) 1, Basophils (Manual) 1, Red Blood Cell Morphology NORMAL, Platelet Estimate NORMAL, Anion Gap 5L, Glomerular Filtration Rate > 60.0, Calcium Level 9.1 Current Medications Current Medications Current Medications Medications (Trade) Dose Ordered Sig/Juan Route PRN Reason Start Time Stop Time Status Last Admin Dose Admin Acetaminophen (Tylenol Tab) 1,000 mg TID PO 11/04/21 21:00 11/18/21 09:48 Albuterol/ Ipratropium (Combivent Respimat 100-20mcg) 1 puff RTID INH 11/04/21 20:00 11/18/21 13:15 Alendronate Sodium (Fosamax) 35 mg Ortega@07 PO 11/10/21 07:00 11/17/21 06:03 Amlodipine Besylate (Norvasc) 2.5 mg DAILY PO 11/05/21 09:00 11/18/21 09:47 Bisacodyl (Dulcolax Suppository) 10 mg DAILYPRN PRN DC CONSTIPATION 11/05/21 10:15 Bisacodyl (Dulcolax Tab) 5 mg DAILY PO 11/05/21 10:15 11/06/21 08:06 Docusate Sodium (Colace) 100 mg BID PO 11/04/21 21:00 11/06/21 20:28 Fluticasone Propionate (Flonase 0.05% Nasal [place]) 1 spray BID NARES 11/04/21 21:00 11/18/21 09:52 Heparin Sodium (Porcine) (Heparin) 5,000 units Q12H SC 11/04/21 21:00 11/18/21 09:47 Home Med (Home Med List Complete!) ASDIRECTED XX 11/08/21 15:05 11/08/21 15:11 DC Immune Globulin 40 gm/IV Miscellaneous Supplies 400 ml @ 0 mls/hr Q24H IV 11/08/21 18:00 11/10/21 18:01 DC 11/10/21 17:58 Immune Globulin / IV Miscellaneous Supplies 0 ml @ 0 mls/hr ASDIRECTED IV 11/08/21 16:00 11/10/21 16:00 UNV Immune Globulin 5 gm/IV Miscellaneous Supplies 50 ml @ 0 mls/hr Q24H IV 11/08/21 18:00 11/10/21 18:01 DC 11/10/21 21:45 Lidocaine (Lidoderm Patch) 1 patch QHS TD 11/11/21 21:00 11/17/21 22:15 Magnesium Oxide (Mag-Ox) 400 mg DAILY PO 11/05/21 09:00 11/18/21 09:46 Metoprolol Tartrate (Lopressor) 25 mg Q8H PO 11/04/21 22:00 11/18/21 14:01 Miscellaneous (Unresolved Clarification Entry) SEE LABEL COMMENTS DAILY XX 11/17/21 09:00 11/17/21 13:27 DC Non-Formulary Medication ( See Comment Field Below ) REMOVE LIDODERM PATCH DAILY XX 11/12/21 09:00 11/18/21 09:47 Oxycodone HCl (Roxicodone, Oxyir) 2.5 mg Q4HP PRN PO MODERATE PAIN (PS 5-7) 11/04/21 14:10 11/16/21 14:53 Pantoprazole Sodium (Protonix) 40 mg DAILY PO 11/05/21 09:00 11/18/21 09:46 Polyethylene Glycol (Miralax) 1 pkt DAILY PO 11/05/21 10:15 11/06/21 08:05 Senna (Senokot) 1 tab QHS PO 11/04/21 21:00 11/05/21 20:13 Zinc Oxide (Balmex Cream) to sacrum TID TOP 11/04/21 21:00 11/06/21 19:50 DC 11/06/21 15:53 LEE CHAUDHRY MD Nov 18, 2021 16:06
--- NOTE | 2021-11-18 16:06 | IPNPDOC ---
PM&R Progress Note DATE OF SERVICE: Nov 14, 2021 Mixed Signal Design Engineer Progress Note Subjective: Patient seen in her room stating she continues to feel she is getting stronger. REVIEW OF SYSTEMS: The following is a completed review of systems and has been reviewed. Review of systems otherwise unremarkable. PAIN: Patient self reports no pain EYES: No recent vision changes EARS, NOSE, & THROAT: No throat pain, or dysphagia, or rhinorrhea CARDIOVASCULAR: Denies chest pain or palpitations PULMONARY: Denies shortness of breath GASTROINTESTINAL: Denies constipation/diarrhea GENITOURINARY: +urge incontinence (chronic) MUSCULOSKELETAL: pelvic facture with generalized weakness NEUROLOGICAL:+ peripheral polyneuropathy HEMATOLOGICAL: denies easy bruising SKIN: denies rash PSYCHIATRIC: Unremarkable All other review of systems found to be negative. PHYSICAL EXAMINATION: VITAL SIGNS: Please see below. GENERAL: Pleasant and cooperative. No acute distress. thin HEENT: PERRL. Extraocular movements intact. Clear conjunctiva CARDIOVASCULAR: [Regular rate and rhythm. No murmurs, rubs, or gallops LUNGS: Clear to auscultation bilaterally. No wheezes. No rhonchi ABDOMEN: Soft, nontender, nondistended. Positive bowel sounds. Normal active bowel sounds NEUROLOGICAL: Alert and oriented times three. Cranial nerves II through XII grossly intact. Sensation diminished to light touch in all 5 finger tips and bilat tips of toes 1/4 patellar and bicep reflexes (negative Babinski/clonus bilat, negative hoffmans) EXTREMITIES: 5-\\5 strength bilateral upper extremities. 51\\5 strength right lower extremity. 51/5 strength in left lower extremity. SKIN: right ankle medial malleoli with dried wound with dried exudate and erythematous base ASSESSMENT:65-year-old F with past medical history of multiple fractures who presents status post fall with right pubic ramus fracture PLAN: 1. Rehab- PT/OT advance mobility and ADLs, strengthen/stretch/maintain ROM all 4 limbs 2. Ortho- s/p fall with right pubic ramus fracture cont WBAT with RW, Fosamax started for osteoporosis, f/u ortho as outpatient - recent right fibular fracture s/p casting and removal, Ankle XR negative for r/o osteomyelitis in setting of medial malleoli wound- and CRP only mildly e levated no concern for osteomyelitis 3. Neuro- -patient with bilat hand numbness and foot not in dermatomal pattern or stocking/glove pattern, patient presenting with lower motor neuron signs and non-length dependent neuropathy- (patient does not have hypothyroidism, recent B12 levels WNL, there is concern for paraneoplastic cause given recent weight loss, will defer to neurology on this dx-patient also needs EMG/NCS for further evaluation and has outpatient appointment - obtained cervical imaging showing, " multilevel moderate to severe neural foraminal narrowing" -discussed case with Dr. 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 Cardiac- no hx of HTn, however patient with elevated BPs and tachycardia on inpatient side, cont metoprolol and low dose amlodipine -medicine consulted to assist in overall management 5. Resp- monitor for infection, recent dx of Covid, cont Combivent 6. DVT ppx- heparin and teds, Dopplers negative for DVT bilat LE 7. Pain- standing tylenol, oxycodone prn 8. GI ppx- protonix 9. Endo- patient with low end normal TSH and elevated FT4, has had 60 pound weight loss- thyroid US results showing bilat solid nodules, will refer to endocrine immediately for FNA to r/o malignancy 10. Heme/Onc- patient has had 60 pound weight loss in last 3 months, which could be related to subclinical hyperthyroidism- discussed case with Dr. Howard who recommends endocrine to perform FNA first, will set up referral today and appointment for jessica 11. 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 She will need cont PT and OT to advance her mobility and ADLs to a Mod-I level with RW short distances and Mod-I from wheelchair level ion her home . Work-up and treatment for her neuropathy is still underway. Allergies Coded Allergies: Sulfa (Sulfonamide Antibiotics) (Verified Allergy, Intermediate, 08/14/21) Vital Signs Vital Signs Date Time Temp Pulse Resp B/P (MAP) Pulse Ox O2 Delivery O2 Flow Rate FiO2 11/18/21 14:01 85 129/76 11/18/21 14:00 97.6 18 99 Room Air Laboratory Data CBC/BMP Laboratory Tests 11/18/21 05:33 Labs 24H Laboratory Tests 2 11/18/21 05:33: Neutrophils (%) (Auto) , Nucleated Red Blood Cells % (auto) 0.0, Neutrophils 37, Lymphocytes (Manual) 50H, Monocytes (Manual) 11H, Eosinophils (Manual) 1, Basophils (Manual) 1, Red Blood Cell Morphology NORMAL, Platelet Estimate NORMAL, Anion Gap 5L, Glomerular Filtration Rate > 60.0, Calcium Level 9.1 Current Medications Current Medications Current Medications Medications (Trade) Dose Ordered Sig/Juan Route PRN Reason Start Time Stop Time Status Last Admin Dose Admin Acetaminophen (Tylenol Tab) 1,000 mg TID PO 11/04/21 21:00 11/18/21 09:48 Albuterol/ Ipratropium (Combivent Respimat 100-20mcg) 1 puff RTID INH 11/04/21 20:00 11/18/21 13:15 Alendronate Sodium (Fosamax) 35 mg Ortega@07 PO 11/10/21 07:00 11/17/21 06:03 Amlodipine Besylate (Norvasc) 2.5 mg DAILY PO 11/05/21 09:00 11/18/21 09:47 Bisacodyl (Dulcolax Suppository) 10 mg DAILYPRN PRN IN CONSTIPATION 11/05/21 10:15 Bisacodyl (Dulcolax Tab) 5 mg DAILY PO 11/05/21 10:15 11/06/21 08:06 Docusate Sodium (Colace) 100 mg BID PO 11/04/21 21:00 11/06/21 20:28 Fluticasone Propionate (Flonase 0.05% Nasal [place]) 1 spray BID NARES 11/04/21 21:00 11/18/21 09:52 Heparin Sodium (Porcine) (Heparin) 5,000 units Q12H SC 11/04/21 21:00 11/18/21 09:47 Home Med (Home Med List Complete!) ASDIRECTED XX 11/08/21 15:05 11/08/21 15:11 DC Immune Globulin 40 gm/IV Miscellaneous Supplies 400 ml @ 0 mls/hr Q24H IV 11/08/21 18:00 11/10/21 18:01 DC 11/10/21 17:58 Immune Globulin / IV Miscellaneous Supplies 0 ml @ 0 mls/hr ASDIRECTED IV 11/08/21 16:00 11/10/21 16:00 UNV Immune Globulin 5 gm/IV Miscellaneous Supplies 50 ml @ 0 mls/hr Q24H IV 11/08/21 18:00 11/10/21 18:01 DC 11/10/21 21:45 Lidocaine (Lidoderm Patch) 1 patch QHS TD 11/11/21 21:00 11/17/21 22:15 Magnesium Oxide (Mag-Ox) 400 mg DAILY PO 11/05/21 09:00 11/18/21 09:46 Metoprolol Tartrate (Lopressor) 25 mg Q8H PO 11/04/21 22:00 11/18/21 14:01 Miscellaneous (Unresolved Clarification Entry) SEE LABEL COMMENTS DAILY XX 11/17/21 09:00 11/17/21 13:27 DC Non-Formulary Medication ( See Comment Field Below ) REMOVE LIDODERM PATCH DAILY XX 11/12/21 09:00 11/18/21 09:47 Oxycodone HCl (Roxicodone, Oxyir) 2.5 mg Q4HP PRN PO MODERATE PAIN (PS 5-7) 11/04/21 14:10 11/16/21 14:53 Pantoprazole Sodium (Protonix) 40 mg DAILY PO 11/05/21 09:00 11/18/21 09:46 Polyethylene Glycol (Miralax) 1 pkt DAILY PO 11/05/21 10:15 11/06/21 08:05 Senna (Senokot) 1 tab QHS PO 11/04/21 21:00 11/05/21 20:13 Zinc Oxide (Balmex Cream) to sacrum TID TOP 11/04/21 21:00 11/06/21 19:50 DC 11/06/21 15:53 LEE CHAUDHRY MD Nov 18, 2021 16:06
[2021-11-18 20:00] VITALS: BP 100/72
[2021-11-18] MEDS: SENNA 8.6 MG TAB (SENOKOT) PO SCH (21:00)
[2021-11-18] MEDS: LIDOCAINE 5% (LIDODERM) PATCH TD SCH (21:15)
[2021-11-19] MEDS: METOPROLOL TART 25 MG TABLET PO SCH ×3 (05:36→21:45)
[2021-11-19 05:38] VITALS: BP 117/76
[2021-11-19 06:00] VITALS: BP 117/76
[2021-11-19] MEDS: COMBIVENT RESPIMAT 100-20MCG INHALER 4GM INH SCH ×3 (08:00→20:00)
[2021-11-19] MEDS: DOCUSATE SODIUM 100MG CAPSULE PO SCH ×2 (09:00→21:00)
[2021-11-19] MEDS: MIRALAX *UNIT DOSE* 17GM PACKET PO SCH (09:00)
[2021-11-19] MEDS: **NOTE PATIENT COMMENT** MISC XX SCH (09:00)
[2021-11-19] MEDS: BISACODYL 5 MG TAB PO SCH (09:00)
[2021-11-19] MEDS ORDERED: COMBAER6 INH (10:03)
[2021-11-19] MEDS ORDERED: METO1TAB87 PO (10:03)
[2021-11-19] MEDS ORDERED: MAGN400T2 PO (10:03)
[2021-11-19] MEDS ORDERED: AMLO25TA PO (10:03)
[2021-11-19] MEDS: ACETAMINOPHEN 500 MG TAB PO SCH ×3 (10:38→21:43)
[2021-11-19] MEDS: PANTOPRAZOLE 40MG TAB (PROTONIX) PO SCH (10:39)
[2021-11-19] MEDS: MAGNESIUM OXIDE 400MG TAB (MAG-OX) PO SCH (10:39)
[2021-11-19] MEDS: HEPARIN SOD (PORCINE) 5000UNITS/ML 1ML VIAL/SYRINGE SC SCH ×2 (10:40→21:42)
[2021-11-19] MEDS: REMEDY PHYTOPLEX Z-GUARD PASTE 113GM TUBE (FROM STOREROOM PRODUCT) TOP SCH ×3 (10:41→21:47)
[2021-11-19] MEDS: FLUTICASONE PROP 0.05% NASAL SPRAY 16 GM (FLONASE) NARES SCH ×2 (10:41→21:47)
--- NOTE | 2021-11-19 10:47 | IPNPDOC ---
PM&R Progress Note DATE OF SERVICE: Nov 19, 2021 Leadership Development Manager Progress Note Subjective: Patient reporting she is ready to go home tomorrow. REVIEW OF SYSTEMS: The following is a completed review of systems and has been reviewed. Review of systems otherwise unremarkable. PAIN: Patient self reports no pain EYES: No recent vision changes EARS, NOSE, & THROAT: No throat pain, or dysphagia, or rhinorrhea CARDIOVASCULAR: Denies chest pain or palpitations PULMONARY: Denies shortness of breath GASTROINTESTINAL: Denies constipation/diarrhea GENITOURINARY: +urge incontinence (chronic) MUSCULOSKELETAL: pelvic facture with generalized weakness NEUROLOGICAL:+ peripheral polyneuropathy HEMATOLOGICAL: denies easy bruising SKIN: denies rash PSYCHIATRIC: Unremarkable All other review of systems found to be negative. PHYSICAL EXAMINATION: VITAL SIGNS: Please see below. GENERAL: Pleasant and cooperative. No acute distress. thin HEENT: PERRL. Extraocular movements intact. Clear conjunctiva CARDIOVASCULAR: [Regular rate and rhythm. No murmurs, rubs, or gallops LUNGS: Clear to auscultation bilaterally. No wheezes. No rhonchi ABDOMEN: Soft, nontender, nondistended. Positive bowel sounds. Normal active bowel sounds NEUROLOGICAL: Alert and oriented times three. Cranial nerves II through XII grossly intact. Sensation diminished to light touch in all 5 finger tips and bilat tips of toes 1/4 patellar and bicep reflexes (negative Babinski/clonus bilat, negative hoffmans) EXTREMITIES: 5-\\5 strength bilateral upper extremities. 51\\5 strength right lower extremity. 51/5 strength in left lower extremity. SKIN: right ankle medial malleoli with dried wound with dried exudate and erythematous base ASSESSMENT:65-year-old F with past medical history of multiple fractures who presents status post fall with right pubic ramus fracture PLAN: 1. Rehab- PT/OT advance mobility and ADLs, strengthen/stretch/maintain ROM all 4 limbs 2. Ortho- s/p fall with right pubic ramus fracture cont WBAT with RW, Fosamax started for osteoporosis, f/u ortho as outpatient - recent right fibular fracture s/p casting and removal, Ankle XR negative for r/o osteomyelitis in setting of medial malleoli wound- and CRP only mildly elevated no concern for osteomyelitis 3. Neuro- -patient with bilat hand numbness and foot not in dermatomal pattern or stocking/glove pattern, patient presenting with lower motor neuron signs and non-length dependent neuropathy- (patient does not have hypothyroidism, recent B12 levels WNL, there is concern for paraneoplastic cause given recent weight loss, will defer to neurology on this dx-patient also needs EMG/NCS for further evaluation and has outpatient appointment - obtained cervical imaging showing, " multilevel moderate to severe neural foraminal narrowing" -discussed case with Dr. 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 Cardiac- no hx of HTn, however patient with elevated BPs and tachycardia on inpatient side, cont metoprolol and low dose amlodipine -medicine consulted to assist in overall management 5. Resp- monitor for infection, recent dx of Covid, cont Combivent 6. DVT ppx- heparin and teds, Dopplers negative for DVT bilat LE 7. Pain- standing tylenol, oxycodone prn 8. GI ppx- protonix 9. Endo- patient with low end normal TSH and elevated FT4, has had 60 pound weight loss- thyroid US results showing bilat solid nodules, will refer to endocrine immediately for FNA to r/o malignancy 10. Heme/Onc- patient has had 60 pound weight loss in last 3 months, which could be related to subclinical hyperthyroidism- discussed case with Dr. Howard who recommends endocrine to perform FNA first, will set up referral today and appointment for jessica 11. 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 Sh ie now Mod-I from wheelchair level and ready for d/c to home 11-20-21. DME Patient will require a wheelchair to complete her MRADLs in a timely and safe manner. Her home is wheelchair accessible, she is agreeable to use one and she has family who will assist her. She is unable to complete her MRADLs with a walker or cane safely. Allergies Coded Allergies: Sulfa (Sulfonamide Antibiotics) (Verified Allergy, Intermediate, 08/14/21) Vital Signs Vital Signs Date Time Temp Pulse Resp B/P (MAP) Pulse Ox O2 Delivery O2 Flow Rate FiO2 11/19/21 10:39 62 120/76 11/19/21 06:00 96.2 18 95 Room Air Current Medications Current Medications Current Medications Medications (Trade) Dose Ordered Sig/Juan Route PRN Reason Start Time Stop Time Status Last Admin Dose Admin Acetaminophen (Tylenol Tab) 1,000 mg TID PO 11/04/21 21:00 11/19/21 10:38 Albuterol/ Ipratropium (Combivent Respimat 100-20mcg) 1 puff RTID INH 11/04/21 20:00 11/18/21 13:15 Alendronate Sodium (Fosamax) 35 mg Ortega@07 PO 11/10/21 07:00 11/17/21 06:03 Amlodipine Besylate (Norvasc) 2.5 mg DAILY PO 11/05/21 09:00 11/19/21 10:39 Bisacodyl (Dulcolax Suppository) 10 mg DAILYPRN PRN [place] CONSTIPATION 11/05/21 10:15 Bisacodyl (Dulcolax Tab) 5 mg DAILY PO 11/05/21 10:15 11/06/21 08:06 Docusate Sodium (Colace) 100 mg BID PO 11/04/21 21:00 11/06/21 20:28 Fluticasone Propionate (Flonase 0.05% Nasal [place]) 1 spray BID NARES 11/04/21 21:00 11/19/21 10:41 Heparin Sodium (Porcine) (Heparin) 5,000 units Q12H SC 11/04/21 21:00 11/19/21 10:40 Home Med (Home Med List Complete!) ASDIRECTED XX 11/08/21 15:05 11/08/21 15:11 DC Immune Globulin 40 gm/IV Miscellaneous Supplies 400 ml @ 0 mls/hr Q24H IV 11/08/21 18:00 11/10/21 18:01 DC 11/10/21 17:58 Immune Globulin / IV Miscellaneous Supplies 0 ml @ 0 mls/hr ASDIRECTED IV 11/08/21 16:00 11/10/21 16:00 UNV Immune Globulin 5 gm/IV Miscellaneous Supplies 50 ml @ 0 mls/hr Q24H IV 11/08/21 18:00 11/10/21 18:01 DC 11/10/21 21:45 Lidocaine (Lidoderm Patch) 1 patch QHS TD 11/11/21 21:00 11/18/21 21:15 Magnesium Oxide (Mag-Ox) 400 mg DAILY PO 11/05/21 09:00 11/19/21 10:39 Metoprolol Tartrate (Lopressor) 25 mg Q8H PO 11/04/21 22:00 11/19/21 05:36 Miscellaneous (Unresolved Clarification Entry) SEE LABEL COMMENTS DAILY XX 11/17/21 09:00 11/17/21 13:27 DC Non-Formulary Medication ( See Comment Field Below ) REMOVE LIDODERM PATCH DAILY XX 11/12/21 09:00 11/19/21 09:00 Oxycodone HCl (Roxicodone, Oxyir) 2.5 mg Q4HP PRN PO MODERATE PAIN (PS 5-7) 11/04/21 14:10 11/16/21 14:53 Pantoprazole Sodium (Protonix) 40 mg DAILY PO 11/05/21 09:00 11/19/21 10:39 Polyethylene Glycol (Miralax) 1 pkt DAILY PO 11/05/21 10:15 11/06/21 08:05 Senna (Senokot) 1 tab QHS PO 11/04/21 21:00 11/05/21 20:13 Zinc Oxide (Balmex Cream) to sacrum TID TOP 11/04/21 21:00 11/06/21 19:50 DC 11/06/21 15:53 LEE CHAUDHRY MD Nov 19, 2021 10:47
[2021-11-19 14:00] VITALS: BP 134/71
[2021-11-19 20:00] VITALS: BP 128/72
[2021-11-19] MEDS: SENNA 8.6 MG TAB (SENOKOT) PO SCH (21:00)
[2021-11-20] MEDS: LIDOCAINE 5% (LIDODERM) PATCH TD SCH (00:03)
[2021-11-20] MEDS: METOPROLOL TART 25 MG TABLET PO SCH (05:35)
[2021-11-20 06:00] VITALS: BP 106/63
[2021-11-20] MEDS: COMBIVENT RESPIMAT 100-20MCG INHALER 4GM INH SCH (08:00)
[2021-11-20] MEDS: PANTOPRAZOLE 40MG TAB (PROTONIX) PO SCH (08:21)
[2021-11-20] MEDS: MAGNESIUM OXIDE 400MG TAB (MAG-OX) PO SCH (08:21)
[2021-11-20] MEDS: FLUTICASONE PROP 0.05% NASAL SPRAY 16 GM (FLONASE) NARES SCH (08:22)
[2021-11-20] MEDS: REMEDY PHYTOPLEX Z-GUARD PASTE 113GM TUBE (FROM STOREROOM PRODUCT) TOP SCH (08:22)
[2021-11-20] MEDS: ACETAMINOPHEN 500 MG TAB PO SCH (08:22)
[2021-11-20] MEDS: HEPARIN SOD (PORCINE) 5000UNITS/ML 1ML VIAL/SYRINGE SC SCH (08:22)
[2021-11-20 08:23] VITALS: BP 114/68
[2021-11-20] MEDS: **NOTE PATIENT COMMENT** MISC XX SCH (08:23)
[2021-11-20] MEDS: MIRALAX *UNIT DOSE* 17GM PACKET PO SCH (08:25)
[2021-11-20] MEDS: DOCUSATE SODIUM 100MG CAPSULE PO SCH (08:25)
[2021-11-20] MEDS: BISACODYL 5 MG TAB PO SCH (08:25)
[2021-11-20 14:00] VITALS: BP 117/80
== END 2021-11-20 14:35 | disposition home health service (06) | DRG 561 ==
LOC: M PM&R 15:00
PROVIDERS: ADMIT Physical Medicine & Rehabilitation; ATTEND Physical Medicine & Rehabilitation
DX: S32.591D Other specified fracture of right pubis, subsequent encounter for fracture with routine healing (principal); R42 Dizziness and giddiness; R20.0 Anesthesia of skin; W19.XXXD Unspecified fall, subsequent encounter; Y92.9 Unspecified place or not applicable; Y93.9 Activity, unspecified; Y99.9 Unspecified external cause status; R26.2 Difficulty in walking, not elsewhere classified; M81.0 Age-related osteoporosis without current pathological fracture; Z86.16 Personal history of COVID-19; Z74.09 Other reduced mobility; Z74.1 Need for assistance with personal care; N39.41 Urge incontinence; G62.9 Polyneuropathy, unspecified; R63.4 Abnormal weight loss; Z79.899 Other long term (current) drug therapy; Z88.2 Allergy status to sulfonamides

== ENCOUNTER → 2022-01-23 | Outpatient (CLI) | payer MEDICARE, MEDICAID ==
[~2022-01-23] MED LIST changes: +AMLO25TA PO; +COMBAER6 INH; +MAGN400T2 PO; +METO1TAB87 PO
[2022-01-23 14:12] LABS: BLOOD UREA NITROGEN 7 MG/DL (7-18); CALCIUM LEVEL 9.8 MG/DL (8.8-10.2); CARBON DIOXIDE LEVEL 33 MEQ/L (21-32); CHLORIDE LEVEL 104 MEQ/L (98-107); CREATININE FOR GFR 0.71 MG/DL (0.55-1.30); GLOMERULAR FILTRATION RATE > 60.0 (>45); GLUCOSE, FASTING 84 MG/DL (70-100); POTASSIUM SERUM 3.5 MEQ/L (3.5-5.1); SODIUM LEVEL 142 MEQ/L (136-145)
== END ==
LOC: M PLALAB 11:48
PROVIDERS: ATTEND Family Medicine
DX: E87.6 Hypokalemia (principal)

== ENCOUNTER → 2022-02-10 | Outpatient (CLI) | payer MEDICARE, MEDICAID ==
[2022-02-10 13:56] LABS: TOTAL PROTEIN 6.8 GM/DL (6.4-8.2)
[2022-02-10 14:14] LABS: VITAMIN B12 LEVEL 408 PG/ML
[2022-02-10 14:15] LABS: FOLATE 5.1 NG/ML
[2022-02-10 15:05] LABS: HEMOGLOBIN A1c 5.2 %
[2022-02-12 13:05] LABS: ALPHA-1-GLOBULIN % 4.8 % (2.9-4.9); ALPHA-2-GLOBULINS % 11.7 % (7.1-11.8); BETA-1-GLOBULINS % 6.6 % (4.7-7.2); BETA-2-GLOBULINS % 5.9 % (3.2-6.5)
[2022-02-12 13:06] LABS: ALBUMIN 3.67 GM/DL (3.29-5.55); ALPHA-1-GLOBULINS 0.33 GM/DL (0.17-0.41); BETA-1-GLOBULINS 0.45 GM/DL (0.28-0.60); GAMMA GLOBULINS 1.16 GM/DL (0.65-1.58)
[2022-02-26 11:08] LABS: CERULOPLASMIN 23.7 mg/dL (19.0-39.0); VITAMIN B1 LEVEL WHOLE BLOOD 113.5 nmol/L (66.5-200.0); VITAMIN B6,PYRIDOXAL PHOSPHATE 2.3 ug/L (2.0-32.8); VITAMIN E(ALPHA TOCOPHEROL) 11.3 mg/L (9.0-29.0)
== END ==
LOC: M PLALAB 11:39
PROVIDERS: ATTEND Psychiatry & Neurology Neurology
DX: E61.0 Copper deficiency (principal); E53.8 Deficiency of other specified B group vitamins; E51.9 Thiamine deficiency, unspecified; E11.40 Type 2 diabetes mellitus with diabetic neuropathy, unspecified

== ENCOUNTER → 2022-04-01 | Outpatient (CLI) | payer MEDICARE, MEDICAID ==
[2022-04-01 13:40] LABS: CREATININE FOR GFR 1.13 MG/DL (0.55-1.30)
== END ==
LOC: M PLALAB 11:10
PROVIDERS: ATTEND Family Medicine
DX: R91.1 Solitary pulmonary nodule (principal)

== ENCOUNTER → 2022-04-02 | Outpatient (CLI) | payer MEDICARE, MEDICAID ==
[~2022-04-02] MED LIST changes: +ISOVUE-370 76% 100ML VIAL As Ordered ONE
== END ==
LOC: M RAD 09:05
PROVIDERS: ATTEND Family Medicine
DX: R91.1 Solitary pulmonary nodule (principal)
CPT/HCPCS: 71260; Q9967

== ENCOUNTER → 2022-04-28 | Outpatient (CLI) | payer MEDICARE, MEDICAID ==
[~2022-04-28] MED LIST changes: +CETI-24 PO; +D 10CAP PO; +DOCU100C16 PO; +FOLI1TAB11 PO; -ISOVUE-370 76% 100ML VIAL As Ordered ONE; +METH2.5T48 PO; +OYST1TAB PO; +PRED20TA PO
== END ==
LOC: M LABSMTC 11:03
PROVIDERS: ATTEND Anesthesiology
DX: Z01.812 Encounter for preprocedural laboratory examination (principal)

== ENCOUNTER → 2022-05-11 | Outpatient (CLI) | payer MEDICARE, MEDICAID | LOC: M LABSMTC 12:17 | PROVIDERS: ATTEND Anesthesiology | DX: Z01.812 Encounter for preprocedural laboratory examination (principal); Z20.822 Contact with and (suspected) exposure to COVID-19 ==

== ENCOUNTER 2022-05-15 08:59 | Day surgery (SDC) | payer MEDICARE, MEDICAID ==
[~2022-05-15] VITALS: Ht 172.7 cm; Wt 72.0 kg
[~2022-05-15 08:59] MED LIST changes: +NS 1,000 ML IV ONE
[2022-05-15] MEDS ORDERED: LIDOCAINE 2% 100MG/5ML SDV (FOR ANES.) As Ordered ONE (11:30)
[2022-05-15] MEDS ORDERED: propofoL 500 MG/50 ML VIAL As Ordered ONE (11:30)
[2022-05-15 12:25] VITALS: BP 138/86
== END 2022-05-15 16:04 | disposition home or self-care (01) ==
LOC: M OPP 08:59
PROVIDERS: ATTEND Internal Medicine Gastroenterology
DX: Z12.11 Encounter for screening for malignant neoplasm of colon (principal); Z86.010 Personal history of colon polyps; K63.5 Polyp of colon; K57.30 Diverticulosis of large intestine without perforation or abscess without bleeding; G61.81 Chronic inflammatory demyelinating polyneuritis; Z92.21 Personal history of antineoplastic chemotherapy; Z79.52 Long term (current) use of systemic steroids; Z79.899 Other long term (current) drug therapy; Z88.2 Allergy status to sulfonamides

== ENCOUNTER → 2022-05-28 | Outpatient (CLI) | payer MEDICARE, MEDICAID ==
[~2022-05-28] MED LIST changes: -NS 1,000 ML IV ONE
[2022-05-28 14:53] LABS: ALT/SGPT 18 U/L (12-78); BILIRUBIN,TOTAL 0.8 MG/DL (0.2-1.0); BLOOD UREA NITROGEN 14 MG/DL (7-18); CALCIUM LEVEL 9.3 MG/DL (8.8-10.2); CARBON DIOXIDE LEVEL 32 MEQ/L (21-32); CHLORIDE LEVEL 102 MEQ/L (98-107); CREATININE FOR GFR 0.76 MG/DL (0.55-1.30); GLOMERULAR FILTRATION RATE > 60.0 (>45); GLUCOSE, FASTING 91 MG/DL (70-100); POTASSIUM SERUM 3.8 MEQ/L (3.5-5.1); SODIUM LEVEL 137 MEQ/L (136-145); TOTAL PROTEIN 6.1 GM/DL (6.4-8.2)
== END ==
LOC: M PLALAB 09:53
PROVIDERS: ATTEND Physician Assistant
DX: I10 Essential (primary) hypertension (principal)

== ENCOUNTER → 2022-07-25 | Outpatient (CLI) | payer MEDICARE, MEDICAID ==
[2022-07-25 13:53] LABS: BASO # 0.1 10^3/uL (0.0-0.2); BASO % 1.2 % (0.0-1.0); EOS # 0.1 10^3/uL (0.0-0.5); EOS % 0.9 % (0.0-3.0); HEMATOCRIT 45.6 % (36.0-47.0); HEMOGLOBIN 14.5 g/dl (12.0-15.5); LYMPH % 28.7 % (24.0-44.0); MEAN CORPUSCULAR HEMOGLOBIN 29.7 pg (27.0-33.0); MEAN CORPUSCULAR HGB CONC 31.8 g/dl (32.0-36.5); MEAN CORPUSCULAR VOLUME 93.4 fl (80.0-96.0); MONO # 0.7 10^3/uL (0.0-0.8); MONO % 6.9 % (2.0-8.0); NEUTROPHILS # 6.3 10^3/uL (1.5-8.5); NEUTROPHILS % 60.7 % (36.0-66.0); PLATELET COUNT, AUTOMATED 238 10^3/uL (150-450); RED BLOOD COUNT 4.88 10^6/uL (4.00-5.40); WHITE BLOOD COUNT 10.3 10^3/uL (4.0-10.0)
[2022-07-25 14:40] LABS: ALBUMIN 3.4 GM/DL (3.2-5.2); ALT/SGPT 18 U/L (12-78); BILIRUBIN,TOTAL 0.4 MG/DL (0.2-1.0); BLOOD UREA NITROGEN 11 MG/DL (7-18); CALCIUM LEVEL 9.4 MG/DL (8.8-10.2); CARBON DIOXIDE LEVEL 27 MEQ/L (21-32); CHLORIDE LEVEL 106 MEQ/L (98-107); CREATININE FOR GFR 0.77 MG/DL (0.55-1.30); GLOMERULAR FILTRATION RATE > 60.0 (>45); GLUCOSE, FASTING 84 MG/DL (70-100); POTASSIUM SERUM 3.4 MEQ/L (3.5-5.1); SODIUM LEVEL 141 MEQ/L (136-145); TOTAL PROTEIN 6.5 GM/DL (6.4-8.2)
[2022-07-25 15:11] LABS: FOLATE > 24.0 NG/ML; TOTAL 25(OH) VITAMIN D 65.8 NG/ML (30.0-100.0); VITAMIN B12 LEVEL 236 PG/ML
== END ==
LOC: M PLALAB 09:23
PROVIDERS: ATTEND Psychiatry & Neurology Neurology
DX: E53.8 Deficiency of other specified B group vitamins (principal); E55.9 Vitamin D deficiency, unspecified; Z79.899 Other long term (current) drug therapy

== ENCOUNTER → 2022-11-26 | Outpatient (CLI) | payer MEDICARE, MEDICAID ==
[2022-11-26 13:49] LABS: BASO # 0.1 10^3/uL (0.0-0.2); BASO % 0.3 % (0.0-1.0); HEMATOCRIT 41.9 % (36.0-47.0); HEMOGLOBIN 13.4 g/dl (12.0-15.5); LYMPH # 0.6 10^3/uL (1.5-5.0); LYMPH % 3.4 % (24.0-44.0); MEAN CORPUSCULAR HEMOGLOBIN 30.2 pg (27.0-33.0); MEAN CORPUSCULAR VOLUME 94.4 fl (80.0-96.0); MONO # 0.7 10^3/uL (0.0-0.8); MONO % 3.8 % (2.0-8.0); NEUTROPHILS # 15.3 10^3/uL (1.5-8.5); NEUTROPHILS % 89.2 % (36.0-66.0); PLATELET COUNT, AUTOMATED 210 10^3/uL (150-450); RED BLOOD COUNT 4.44 10^6/uL (4.00-5.40); WHITE BLOOD COUNT 17.1 10^3/uL (4.0-10.0)
[2022-11-26 14:03] LABS: INR 1.08; PROTHROMBIN TIME 14.2 SECONDS (12.5-14.5)
[2022-11-26 14:04] LABS: PARTIAL THROMBOPLASTIN TIME 27.4 SECONDS (24.8-34.2)
[2022-11-26 14:16] LABS: IRON (FE) 36 UG/DL (50-170)
[2022-11-26 14:17] LABS: ALBUMIN 3.3 G/DL (3.2-5.2); ALKALINE PHOSPHATASE 79 U/L (46-116); ALT/SGPT 44 U/L (7.0-40); AST/SGOT 29 U/L (<34); BLOOD UREA NITROGEN 18 MG/DL (9-23); CALCIUM LEVEL 8.8 MG/DL (8.3-10.6); CARBON DIOXIDE LEVEL 24 MMOL/L (20-31); CHLORIDE LEVEL 103 MMOL/L (98-107); CREATININE FOR GFR 0.85 MG/DL (0.55-1.30); GLOMERULAR FILTRATION RATE > 60.0 (>45); GLUCOSE, FASTING 95 MG/DL (74-106); POTASSIUM SERUM 3.8 MMOL/L (3.5-5.1); SODIUM LEVEL 141 MMOL/L (136-145)
[2022-11-26 14:18] LABS: VITAMIN B12 LEVEL 249 PG/ML (211-911)
[2022-11-26 14:19] LABS: FOLATE > 24.00 NG/ML (>5.4)
== END ==
LOC: M PLAIMG 10:01
PROVIDERS: ATTEND Physician Assistant
DX: M25.512 Pain in left shoulder (principal); M25.552 Pain in left hip; T14.8XXA Other injury of unspecified body region, initial encounter

== ENCOUNTER 2022-12-05 10:35 | Inpatient (IN) | payer MEDICARE, MEDICAID ==
[~2022-12-05] VITALS: Ht 170.2 cm; Wt 77.1 kg
[2022-12-05 12:15] LABS: VENOUS BASE EXCESS 2.6 (-2.0-2.0); VENOUS HCO3 28.4 MEQ/L (23.0-27.0); VENOUS O2 SATURATION 84.8 % (60.0-80.0); VENOUS PARTIAL PRESSURE CO2 47.8 mmHg (38.0-50.0); VENOUS PARTIAL PRESSURE O2 52.5 mmHg (30.0-50.0); VENOUS PH 7.392 UNITS (7.330-7.430); VENOUS STANDARD HCO3 26.4 MEQ/L; VENOUS TOTAL CO2 29.9 MEQ/L (24.0-28.0)
[2022-12-05 12:21] LABS: BASO # 0.1 10^3/uL (0.0-0.2); BASO % 0.5 % (0.0-1.0); EOS % 0.2 % (0.0-3.0); HEMATOCRIT 44.7 % (36.0-47.0); HEMOGLOBIN 14.3 g/dl (12.0-15.5); LYMPH # 1.2 10^3/uL (1.5-5.0); LYMPH % 8.6 % (24.0-44.0); MEAN CORPUSCULAR HEMOGLOBIN 29.9 pg (27.0-33.0); MEAN CORPUSCULAR VOLUME 93.3 fl (80.0-96.0); MONO # 0.3 10^3/uL (0.0-0.8); MONO % 2.1 % (2.0-8.0); NEUTROPHILS # 11.4 10^3/uL (1.5-8.5); NEUTROPHILS % 85.8 % (36.0-66.0); PLATELET COUNT, AUTOMATED 216 10^3/uL (150-450); RED BLOOD COUNT 4.79 10^6/uL (4.00-5.40); WHITE BLOOD COUNT 13.3 10^3/uL (4.0-10.0)
[2022-12-05 12:54] LABS: ALBUMIN 3.1 G/DL (3.2-5.2); ALKALINE PHOSPHATASE 197 U/L (46-116); ALT/SGPT 31 U/L (7.0-40); AST/SGOT 27 U/L (<34); BILIRUBIN,DIRECT 0.2 MG/DL (<0.4); BILIRUBIN,TOTAL 0.8 MG/DL (0.3-1.2); BLOOD UREA NITROGEN 16 MG/DL (9-23); CALCIUM LEVEL 9.6 MG/DL (8.3-10.6); CARBON DIOXIDE LEVEL 28 MMOL/L (20-31); CHLORIDE LEVEL 102 MMOL/L (98-107); CREATININE FOR GFR 0.85 MG/DL (0.55-1.30); GLOMERULAR FILTRATION RATE > 60.0 (>45); GLUCOSE, FASTING 89 MG/DL (74-106); POTASSIUM SERUM 4.1 MMOL/L (3.5-5.1); SODIUM LEVEL 139 MMOL/L (136-145); TOTAL PROTEIN 5.8 G/DL (5.7-8.2)
[2022-12-05 12:59] LABS: RSV AMPLIFICATION NEGATIVE (NEGATIVE)
[2022-12-05 13:51] LABS: OSMOLALITY SERUM 292 MOSM/KG (280-301)
[2022-12-05 14:09] LABS: THYROID STIMULATING HORMONE 0.997 uIU/ML (0.55-4.78)
[2022-12-05 15:24] LABS: MAGNESIUM LEVEL 1.9 MG/DL (1.8-2.4)
[2022-12-05] MEDS: OYSTER SHELL CALCIUM 500 MG TAB PO SCH (21:00)
[2022-12-05] MEDS ORDERED: NS 1,000 ML IV SCH (22:50)
[2022-12-05] MEDS ORDERED: NS 500 ML IV ONE (22:50)
[2022-12-05] MEDS: cefTRIAXone SOD 1 GM in D5W MINI-BAG PLUS 50 ML IV SCH (23:39)
[2022-12-06] MEDS ORDERED: HOME MED LIST COMPLETE! XX SCH (00:25)
[2022-12-06 03:20] VITALS: BP 134/93
[2022-12-06 05:50] VITALS: BP 147/90
[2022-12-06 06:29] LABS: MAGNESIUM LEVEL 1.8 MG/DL (1.8-2.4)
[2022-12-06 06:32] LABS: ALBUMIN 2.6 G/DL (3.2-5.2); ALKALINE PHOSPHATASE 191 U/L (46-116); ALT/SGPT 23 U/L (7.0-40); AST/SGOT 13 U/L (<34); BILIRUBIN,TOTAL 0.5 MG/DL (0.3-1.2); BLOOD UREA NITROGEN 17 MG/DL (9-23); CALCIUM LEVEL 8.8 MG/DL (8.3-10.6); CARBON DIOXIDE LEVEL 30 MMOL/L (20-31); CHLORIDE LEVEL 103 MMOL/L (98-107); CREATININE FOR GFR 0.78 MG/DL (0.55-1.30); GLOMERULAR FILTRATION RATE > 60.0 (>45); GLUCOSE, FASTING 91 MG/DL (74-106); POTASSIUM SERUM 3.7 MMOL/L (3.5-5.1); SODIUM LEVEL 140 MMOL/L (136-145)
[2022-12-06] MEDS: CETIRIZINE (ZyrTEC) 10 MG TAB PO SCH (09:18)
[2022-12-06] MEDS: FOLIC ACID 1MG TAB PO SCH (09:18)
[2022-12-06] MEDS: ENOXAPARIN 40MG/0.4ML SYRINGE (J1650 PER 10MG) SC SCH (09:18)
[2022-12-06] MEDS: DOCUSATE SODIUM 100MG CAPSULE PO SCH (09:18)
[2022-12-06] MEDS: OYSTER SHELL CALCIUM 500 MG TAB PO SCH ×2 (09:18→20:28)
[2022-12-06] MEDS: predniSONE 20 MG TAB PO SCH (12:17)
[2022-12-06] MEDS ORDERED: IMMUNE GLOBULIN 10% 0 GM in IV 1 EA IV SCH (14:15)
[2022-12-06 14:30] VITALS: BP 147/92
[2022-12-06] MEDS: IMMUNE GLOBULIN 10% 40 GM in IV 1 EA IV SCH (17:05)
[2022-12-06 22:00] VITALS: BP 149/92
[2022-12-06] MEDS: cefTRIAXone SOD 1 GM in D5W MINI-BAG PLUS 50 ML IV SCH (23:13)
[2022-12-07 06:00] VITALS: BP 161/98
[2022-12-07 06:37] LABS: HEMATOCRIT 36.3 % (36.0-47.0); HEMOGLOBIN 11.8 g/dl (12.0-15.5); MEAN CORPUSCULAR HGB CONC 32.5 g/dl (32.0-36.5); MEAN CORPUSCULAR VOLUME 92.4 fl (80.0-96.0); PLATELET COUNT, AUTOMATED 205 10^3/uL (150-450); RED BLOOD COUNT 3.93 10^6/uL (4.00-5.40)
[2022-12-07 07:01] LABS: MAGNESIUM LEVEL 1.7 MG/DL (1.8-2.4)
[2022-12-07 07:02] LABS: BLOOD UREA NITROGEN 15 MG/DL (9-23); CALCIUM LEVEL 8.4 MG/DL (8.3-10.6); CARBON DIOXIDE LEVEL 27 MMOL/L (20-31); CHLORIDE LEVEL 104 MMOL/L (98-107); CREATININE FOR GFR 0.65 MG/DL (0.55-1.30); GLOMERULAR FILTRATION RATE > 60.0 (>45); GLUCOSE, FASTING 90 MG/DL (74-106); PHOSPHORUS LEVEL 2.5 MG/DL (2.4-5.1); POTASSIUM SERUM 3.6 MMOL/L (3.5-5.1); SODIUM LEVEL 137 MMOL/L (136-145)
[2022-12-07] MEDS ORDERED: MAGNESIUM OXIDE 400MG TAB (MAG-OX) PO ONE (07:20)
[2022-12-07] MEDS: LevoFLOXacin 750 MG TABLET PO SCH (09:25)
[2022-12-07] MEDS: OYSTER SHELL CALCIUM 500 MG TAB PO SCH ×2 (09:25→20:24)
[2022-12-07] MEDS: DOCUSATE SODIUM 100MG CAPSULE PO SCH (09:25)
[2022-12-07] MEDS: FOLIC ACID 1MG TAB PO SCH (09:25)
[2022-12-07] MEDS: predniSONE 20 MG TAB PO SCH (09:25)
[2022-12-07] MEDS: CETIRIZINE (ZyrTEC) 10 MG TAB PO SCH (09:25)
[2022-12-07] MEDS: ENOXAPARIN 40MG/0.4ML SYRINGE (J1650 PER 10MG) SC SCH (09:26)
[2022-12-07 14:00] VITALS: BP 142/83
[2022-12-07] MEDS: IMMUNE GLOBULIN 10% 40 GM in IV 1 EA IV SCH (17:11)
[2022-12-08] MEDS: LevoFLOXacin 750 MG TABLET PO SCH (05:12)
[2022-12-08 06:10] VITALS: BP 145/88
[2022-12-08] MEDS: ACETAMINOPHEN TAB 650MG DOSE (2X325MG) PO PRN (09:43)
[2022-12-08] MEDS: FOLIC ACID 1MG TAB PO SCH (09:43)
[2022-12-08] MEDS: CETIRIZINE (ZyrTEC) 10 MG TAB PO SCH (09:43)
[2022-12-08] MEDS: OYSTER SHELL CALCIUM 500 MG TAB PO SCH ×2 (09:43→19:57)
[2022-12-08] MEDS: predniSONE 20 MG TAB PO SCH (09:44)
[2022-12-08] MEDS: ENOXAPARIN 40MG/0.4ML SYRINGE (J1650 PER 10MG) SC SCH (09:44)
[2022-12-08] MEDS: DOCUSATE SODIUM 100MG CAPSULE PO SCH (09:44)
[2022-12-08 14:00] VITALS: BP 145/80
[2022-12-08] MEDS: IMMUNE GLOBULIN 10% 40 GM in IV 1 EA IV SCH (16:18)
[2022-12-08 22:00] VITALS: BP 144/84
[2022-12-09] MEDS: LevoFLOXacin 750 MG TABLET PO SCH (05:19)
[2022-12-09] MEDS: ACETAMINOPHEN TAB 650MG DOSE (2X325MG) PO PRN (05:19)
[2022-12-09 06:00] VITALS: BP 158/94
[2022-12-09 06:36] LABS: HEMATOCRIT 36.7 % (36.0-47.0); HEMOGLOBIN 11.8 g/dl (12.0-15.5); MEAN CORPUSCULAR HEMOGLOBIN 30.1 pg (27.0-33.0); MEAN CORPUSCULAR HGB CONC 32.2 g/dl (32.0-36.5); MEAN CORPUSCULAR VOLUME 93.6 fl (80.0-96.0); PLATELET COUNT, AUTOMATED 182 10^3/uL (150-450); RED BLOOD COUNT 3.92 10^6/uL (4.00-5.40); WHITE BLOOD COUNT 9.3 10^3/uL (4.0-10.0)
[2022-12-09 07:27] LABS: MAGNESIUM LEVEL 1.6 MG/DL (1.8-2.4)
[2022-12-09 07:34] LABS: BLOOD UREA NITROGEN 15 MG/DL (9-23); CALCIUM LEVEL 8.5 MG/DL (8.3-10.6); CARBON DIOXIDE LEVEL 27 MMOL/L (20-31); CHLORIDE LEVEL 106 MMOL/L (98-107); CREATININE FOR GFR 0.66 MG/DL (0.55-1.30); GLOMERULAR FILTRATION RATE > 60.0 (>45); GLUCOSE, FASTING 99 MG/DL (74-106); PHOSPHORUS LEVEL 3.2 MG/DL (2.4-5.1); POTASSIUM SERUM 3.4 MMOL/L (3.5-5.1); SODIUM LEVEL 138 MMOL/L (136-145)
[2022-12-09] MEDS: OYSTER SHELL CALCIUM 500 MG TAB PO SCH ×2 (09:02→20:01)
[2022-12-09] MEDS: DOCUSATE SODIUM 100MG CAPSULE PO SCH (09:02)
[2022-12-09] MEDS: predniSONE 20 MG TAB PO SCH (09:02)
[2022-12-09] MEDS: ENOXAPARIN 40MG/0.4ML SYRINGE (J1650 PER 10MG) SC SCH (09:02)
[2022-12-09] MEDS: FOLIC ACID 1MG TAB PO SCH (09:02)
[2022-12-09] MEDS: CETIRIZINE (ZyrTEC) 10 MG TAB PO SCH (09:02)
[2022-12-09] MEDS ORDERED: SENNA 8.6 MG TAB (SENOKOT) PO PRN (13:45)
[2022-12-09] MEDS ORDERED: MIRALAX *UNIT DOSE* 17GM PACKET PO PRN (13:45)
[2022-12-09 14:00] VITALS: BP 163/95
[2022-12-09] MEDS: IMMUNE GLOBULIN 10% 40 GM in IV 1 EA IV SCH (16:33)
[2022-12-09 19:37] VITALS: BP 167/96
[2022-12-09 21:08] VITALS: BP 148/78
[2022-12-10 05:47] VITALS: BP 180/94
[2022-12-10] MEDS: amLODIPine 5 MG TAB PO SCH (06:24)
[2022-12-10] MEDS: ACETAMINOPHEN TAB 650MG DOSE (2X325MG) PO PRN ×2 (06:29→20:36)
[2022-12-10 06:32] LABS: BASO # 0.1 10^3/uL (0.0-0.2); BASO % 0.5 % (0.0-1.0); EOS % 0.3 % (0.0-3.0); HEMATOCRIT 38.6 % (36.0-47.0); HEMOGLOBIN 12.1 g/dl (12.0-15.5); LYMPH # 1.9 10^3/uL (1.5-5.0); LYMPH % 19.5 % (24.0-44.0); MEAN CORPUSCULAR HEMOGLOBIN 29.2 pg (27.0-33.0); MEAN CORPUSCULAR HGB CONC 31.3 g/dl (32.0-36.5); MEAN CORPUSCULAR VOLUME 93.2 fl (80.0-96.0); MONO # 0.8 10^3/uL (0.0-0.8); MONO % 8.4 % (2.0-8.0); NEUTROPHILS # 6.4 10^3/uL (1.5-8.5); NEUTROPHILS % 67.7 % (36.0-66.0); PLATELET COUNT, AUTOMATED 188 10^3/uL (150-450); RED BLOOD COUNT 4.14 10^6/uL (4.00-5.40); WHITE BLOOD COUNT 9.5 10^3/uL (4.0-10.0)
[2022-12-10 06:57] LABS: MAGNESIUM LEVEL 1.8 MG/DL (1.8-2.4)
[2022-12-10 06:58] LABS: BLOOD UREA NITROGEN 16 MG/DL (9-23); CALCIUM LEVEL 8.2 MG/DL (8.3-10.6); CARBON DIOXIDE LEVEL 27 MMOL/L (20-31); CHLORIDE LEVEL 102 MMOL/L (98-107); CREATININE FOR GFR 0.68 MG/DL (0.55-1.30); GLOMERULAR FILTRATION RATE > 60.0 (>45); GLUCOSE, FASTING 85 MG/DL (74-106); POTASSIUM SERUM 3.6 MMOL/L (3.5-5.1); SODIUM LEVEL 136 MMOL/L (136-145)
[2022-12-10 08:15] VITALS: BP 160/78
[2022-12-10] MEDS: DOCUSATE SODIUM 100MG CAPSULE PO SCH (08:33)
[2022-12-10] MEDS: predniSONE 20 MG TAB PO SCH (08:33)
[2022-12-10] MEDS: CETIRIZINE (ZyrTEC) 10 MG TAB PO SCH (08:33)
[2022-12-10] MEDS: OYSTER SHELL CALCIUM 500 MG TAB PO SCH ×2 (08:33→20:36)
[2022-12-10] MEDS: FOLIC ACID 1MG TAB PO SCH (08:33)
[2022-12-10] MEDS: ENOXAPARIN 40MG/0.4ML SYRINGE (J1650 PER 10MG) SC SCH (08:34)
[2022-12-10 14:00] VITALS: BP 98/60
[2022-12-10 20:33] VITALS: BP 122/68
[2022-12-11 06:15] VITALS: BP 130/76
[2022-12-11] MEDS: ENOXAPARIN 40MG/0.4ML SYRINGE (J1650 PER 10MG) SC SCH (08:47)
[2022-12-11] MEDS: FOLIC ACID 1MG TAB PO SCH (08:47)
[2022-12-11] MEDS: predniSONE 20 MG TAB PO SCH (08:48)
[2022-12-11] MEDS: OYSTER SHELL CALCIUM 500 MG TAB PO SCH ×2 (08:53→21:22)
[2022-12-11] MEDS: amLODIPine 5 MG TAB PO SCH (08:53)
[2022-12-11] MEDS: DOCUSATE SODIUM 100MG CAPSULE PO SCH (08:53)
[2022-12-11] MEDS: CETIRIZINE (ZyrTEC) 10 MG TAB PO SCH (08:53)
[2022-12-11 14:00] VITALS: BP 130/78
[2022-12-11] MEDS: ACETAMINOPHEN TAB 650MG DOSE (2X325MG) PO PRN (17:40)
[2022-12-11 20:04] VITALS: BP 129/72
[2022-12-12] MEDS: ACETAMINOPHEN TAB 650MG DOSE (2X325MG) PO PRN ×2 (05:44→17:02)
[2022-12-12 06:40] VITALS: BP 140/92
[2022-12-12] MEDS: ENOXAPARIN 40MG/0.4ML SYRINGE (J1650 PER 10MG) SC SCH (09:06)
[2022-12-12] MEDS: DOCUSATE SODIUM 100MG CAPSULE PO SCH (09:06)
[2022-12-12] MEDS: OYSTER SHELL CALCIUM 500 MG TAB PO SCH ×2 (09:06→20:15)
[2022-12-12] MEDS: amLODIPine 5 MG TAB PO SCH (09:07)
[2022-12-12] MEDS: FOLIC ACID 1MG TAB PO SCH (09:07)
[2022-12-12] MEDS: predniSONE 20 MG TAB PO SCH (09:07)
[2022-12-12] MEDS: CETIRIZINE (ZyrTEC) 10 MG TAB PO SCH (09:08)
[2022-12-12 14:00] VITALS: BP 146/92
[2022-12-12 20:05] VITALS: BP 134/84
[2022-12-13 05:38] VITALS: BP 163/80
[2022-12-13] MEDS: DOCUSATE SODIUM 100MG CAPSULE PO SCH (07:38)
[2022-12-13] MEDS: ACETAMINOPHEN TAB 650MG DOSE (2X325MG) PO PRN ×3 (07:38→21:55)
[2022-12-13] MEDS: OYSTER SHELL CALCIUM 500 MG TAB PO SCH ×2 (07:39→21:54)
[2022-12-13] MEDS: CETIRIZINE (ZyrTEC) 10 MG TAB PO SCH (07:39)
[2022-12-13] MEDS: FOLIC ACID 1MG TAB PO SCH (07:39)
[2022-12-13] MEDS: predniSONE 20 MG TAB PO SCH (07:39)
[2022-12-13] MEDS: amLODIPine 5 MG TAB PO SCH (07:39)
[2022-12-13] MEDS: ENOXAPARIN 40MG/0.4ML SYRINGE (J1650 PER 10MG) SC SCH (07:40)
[2022-12-13 14:00] VITALS: BP 148/79
[2022-12-13 19:44] VITALS: BP 112/71
[2022-12-14 05:09] VITALS: BP 143/92
[2022-12-14] MEDS: ACETAMINOPHEN TAB 650MG DOSE (2X325MG) PO PRN ×3 (05:54→18:20)
[2022-12-14] MEDS: amLODIPine 5 MG TAB PO SCH (09:00)
[2022-12-14] MEDS: predniSONE 20 MG TAB PO SCH (09:31)
[2022-12-14] MEDS: FOLIC ACID 1MG TAB PO SCH (09:31)
[2022-12-14] MEDS: OYSTER SHELL CALCIUM 500 MG TAB PO SCH ×2 (09:31→20:11)
[2022-12-14] MEDS: CETIRIZINE (ZyrTEC) 10 MG TAB PO SCH (09:31)
[2022-12-14] MEDS: DOCUSATE SODIUM 100MG CAPSULE PO SCH (09:31)
[2022-12-14] MEDS: ENOXAPARIN 40MG/0.4ML SYRINGE (J1650 PER 10MG) SC SCH (09:32)
[2022-12-15] MEDS: ACETAMINOPHEN TAB 650MG DOSE (2X325MG) PO PRN ×4 (04:40→21:35)
[2022-12-15 06:00] VITALS: BP 135/94
[2022-12-15] MEDS: ENOXAPARIN 40MG/0.4ML SYRINGE (J1650 PER 10MG) SC SCH (09:14)
[2022-12-15] MEDS: CETIRIZINE (ZyrTEC) 10 MG TAB PO SCH (09:15)
[2022-12-15] MEDS: OYSTER SHELL CALCIUM 500 MG TAB PO SCH ×2 (09:15→21:35)
[2022-12-15] MEDS: FOLIC ACID 1MG TAB PO SCH (09:15)
[2022-12-15] MEDS: amLODIPine 5 MG TAB PO SCH (09:15)
[2022-12-15] MEDS: DOCUSATE SODIUM 100MG CAPSULE PO SCH (09:15)
[2022-12-15] MEDS: predniSONE 20 MG TAB PO SCH (09:15)
[2022-12-16] MEDS: ACETAMINOPHEN TAB 650MG DOSE (2X325MG) PO PRN ×3 (05:08→15:23)
[2022-12-16 06:00] VITALS: BP 149/84
[2022-12-16] MEDS: ENOXAPARIN 40MG/0.4ML SYRINGE (J1650 PER 10MG) SC SCH (09:30)
[2022-12-16 09:31] VITALS: BP 149/84
[2022-12-16] MEDS: CETIRIZINE (ZyrTEC) 10 MG TAB PO SCH (09:31)
[2022-12-16] MEDS: amLODIPine 5 MG TAB PO SCH (09:31)
[2022-12-16] MEDS: DOCUSATE SODIUM 100MG CAPSULE PO SCH (09:31)
[2022-12-16] MEDS: predniSONE 20 MG TAB PO SCH (09:31)
[2022-12-16] MEDS: OYSTER SHELL CALCIUM 500 MG TAB PO SCH (09:31)
[2022-12-16] MEDS: FOLIC ACID 1MG TAB PO SCH (09:31)
[2022-12-16 11:15] VITALS: BP 132/76
[2022-12-16] MEDS ORDERED: AMLO1TAB24 PO (14:20)
[2022-12-16] MEDS ORDERED: PRED20TA PO (14:20)
== END 2022-12-16 15:40 | disposition home health service (06) | DRG 74 ==
LOC: M ED 10:35 → M ED INP 22:50 → ENRESERV 12-06 02:15 → M MS5PR 12-06 03:11
PROVIDERS: ADMIT Family Medicine; ATTEND Internal Medicine
DX: G61.81 Chronic inflammatory demyelinating polyneuritis (principal); E87.20 Acidosis, unspecified; N39.0 Urinary tract infection, site not specified; E03.9 Hypothyroidism, unspecified; M06.9 Rheumatoid arthritis, unspecified; F41.9 Anxiety disorder, unspecified; I10 Essential (primary) hypertension; M54.9 Dorsalgia, unspecified; F32.A Depression, unspecified; M48.00 Spinal stenosis, site unspecified; R29.6 Repeated falls; B96.5 Pseudomonas (aeruginosa) (mallei) (pseudomallei) as the cause of diseases classified elsewhere; K59.00 Constipation, unspecified; Z79.899 Other long term (current) drug therapy; Z88.2 Allergy status to sulfonamides; Z87.891 Personal history of nicotine dependence; J30.9 Allergic rhinitis, unspecified; M71.58 Other bursitis, not elsewhere classified, other site

== ENCOUNTER → 2023-01-07 | Outpatient (CLI) | payer MEDICARE, MEDICAID ==
[~2023-01-07] MED LIST changes: +AMLO1TAB24 PO
== END ==
LOC: M SOG 15:27
PROVIDERS: ATTEND Orthopaedic Surgery
DX: S82.61XD Displaced fracture of lateral malleolus of right fibula, subsequent encounter for closed fracture with routine healing (principal)

== ENCOUNTER 2023-02-02 02:13 | Emergency (ER) | payer MEDICARE, MEDICAID ==
[~2023-02-02] VITALS: Ht 174 cm; Wt 80.0 kg
[2023-02-02 02:14] VITALS: BP 158/90
[2023-02-02] MEDS ORDERED: FERR325T3 PO (02:30)
[2023-02-02] MEDS ORDERED: MONT10TA97 PO (02:30)
[2023-02-02 04:37] LABS: BASO % 0.2 % (0.0-1.0); HEMATOCRIT 43.5 % (36.0-47.0); HEMOGLOBIN 13.4 g/dl (12.0-15.5); LYMPH # 1.8 10^3/uL (1.5-5.0); LYMPH % 16.3 % (24.0-44.0); MEAN CORPUSCULAR HEMOGLOBIN 29.6 pg (27.0-33.0); MEAN CORPUSCULAR HGB CONC 30.8 g/dl (32.0-36.5); MEAN CORPUSCULAR VOLUME 96.2 fl (80.0-96.0); MONO # 1.2 10^3/uL (0.0-0.8); MONO % 10.7 % (2.0-8.0); PLATELET COUNT, AUTOMATED 280 10^3/uL (150-450); RED BLOOD COUNT 4.52 10^6/uL (4.00-5.40)
[2023-02-02 05:07] LABS: BLOOD UREA NITROGEN 13 MG/DL (9-23); CALCIUM LEVEL 9.5 MG/DL (8.3-10.6); CARBON DIOXIDE LEVEL 29 MMOL/L (20-31); CHLORIDE LEVEL 100 MMOL/L (98-107); CREATININE FOR GFR 0.82 MG/DL (0.55-1.30); GLOMERULAR FILTRATION RATE > 60.0 (>45); GLUCOSE, FASTING 95 MG/DL (74-106); POTASSIUM SERUM 2.9 MMOL/L (3.5-5.1); SODIUM LEVEL 138 MMOL/L (136-145)
[2023-02-02] MEDS ORDERED: POTASSIUM CHLORIDE 10MEQ SR TABLET PO ONE (06:00)
[2023-02-02] MEDS ORDERED: cefTRIAXone SOD 1 GM in D5W MINI-BAG PLUS 50 ML IV ONE (06:00)
[2023-02-03] MEDS ORDERED: CEPH500C PO (18:18)
== END 2023-02-02 06:33 | disposition home or self-care (01) ==
LOC: M ED 02:13
DX: L03.114 Cellulitis of left upper limb (principal); E87.6 Hypokalemia; I10 Essential (primary) hypertension; M06.9 Rheumatoid arthritis, unspecified; E03.9 Hypothyroidism, unspecified; Z86.73 Personal history of transient ischemic attack (TIA), and cerebral infarction without residual deficits; Z88.2 Allergy status to sulfonamides; Z87.891 Personal history of nicotine dependence; Z79.52 Long term (current) use of systemic steroids; Z79.899 Other long term (current) drug therapy
CPT/HCPCS: 80048; 83605; 85025; 86140; 87040; 87077; 93971; 96374; 99283; J0696

== ENCOUNTER 2023-02-03 15:02 | Emergency (ER) | payer MEDICARE, MEDICAID ==
[~2023-02-03] VITALS: Ht 172.7 cm; Wt 80.0 kg
[~2023-02-03 15:02] MED LIST changes: +FERR325T3 PO; +MONT10TA97 PO
[2023-02-03 15:03] VITALS: BP 167/79
[2023-02-03 16:02] LABS: BASO % 0.4 % (0.0-1.0); EOS % 0.1 % (0.0-3.0); HEMOGLOBIN 13.4 g/dl (12.0-15.5); LYMPH # 1.1 10^3/uL (1.5-5.0); LYMPH % 11.3 % (24.0-44.0); MEAN CORPUSCULAR HEMOGLOBIN 30.9 pg (27.0-33.0); MEAN CORPUSCULAR HGB CONC 31.9 g/dl (32.0-36.5); MEAN CORPUSCULAR VOLUME 96.8 fl (80.0-96.0); MONO # 0.5 10^3/uL (0.0-0.8); MONO % 4.9 % (2.0-8.0); NEUTROPHILS # 8.3 10^3/uL (1.5-8.5); PLATELET COUNT, AUTOMATED 262 10^3/uL (150-450); RED BLOOD COUNT 4.34 10^6/uL (4.00-5.40); WHITE BLOOD COUNT 9.9 10^3/uL (4.0-10.0)
[2023-02-03 16:30] LABS: BLOOD UREA NITROGEN 10 MG/DL (9-23); CALCIUM LEVEL 8.7 MG/DL (8.3-10.6); CARBON DIOXIDE LEVEL 32 MMOL/L (20-31); CHLORIDE LEVEL 101 MMOL/L (98-107); CREATININE FOR GFR 0.78 MG/DL (0.55-1.30); GLOMERULAR FILTRATION RATE > 60.0 (>45); GLUCOSE, FASTING 113 MG/DL (74-106); POTASSIUM SERUM 3.3 MMOL/L (3.5-5.1); SODIUM LEVEL 140 MMOL/L (136-145)
[2023-02-03 16:31] LABS: ERYTHROCYTE SEDIMENTATION RATE 78 mm/hr (0-30)
[2023-02-03] MEDS ORDERED: CEPH500C PO (18:18)
[2023-02-03] MEDS ORDERED: LIDOCAINE 1% SDV 5ML VIAL DILUENT ONE (18:20)
[2023-02-03] MEDS ORDERED: cefTRIAXone SOD 1GM VIAL IM ONE (18:20)
[2023-02-03] MEDS ORDERED: POTASSIUM CHLORIDE 10MEQ SR TABLET PO ONE (18:20)
== END 2023-02-03 19:08 | disposition home or self-care (01) ==
LOC: M ED 15:02
DX: L03.114 Cellulitis of left upper limb (principal); E87.6 Hypokalemia; Z88.2 Allergy status to sulfonamides; Z79.52 Long term (current) use of systemic steroids; Z79.83 Long term (current) use of bisphosphonates; Z79.899 Other long term (current) drug therapy
CPT/HCPCS: 80048; 85025; 85652; 86140; 87040; 96372; 99282; J0696

== ENCOUNTER 2023-02-06 13:45 | Emergency (ER) | payer MEDICARE, MEDICAID ==
[~2023-02-06] VITALS: Ht 174 cm; Wt 81.8 kg
[~2023-02-06 13:45] MED LIST changes: +CEPH500C PO
[2023-02-06 20:35] VITALS: BP 143/92
== END 2023-02-06 20:59 | disposition home or self-care (01) ==
LOC: EDBD 13:45 → M ED 13:45
DX: S82.61XA Displaced fracture of lateral malleolus of right fibula, initial encounter for closed fracture (principal); W19.XXXA Unspecified fall, initial encounter; I10 Essential (primary) hypertension; Z88.2 Allergy status to sulfonamides; Z79.52 Long term (current) use of systemic steroids; Z79.899 Other long term (current) drug therapy

== ENCOUNTER → 2023-02-18 | Outpatient (CLI) | payer MEDICARE, MEDICAID | LOC: M RAD 14:01 | PROVIDERS: ATTEND Nurse Practitioner Family | DX: L03.114 Cellulitis of left upper limb (principal); M79.81 Nontraumatic hematoma of soft tissue ==

== ENCOUNTER → 2023-02-19 | Outpatient (CLI) | payer MEDICARE, MEDICAID | LOC: M SOG 08:06 | PROVIDERS: ATTEND Physician Assistant | DX: S82.891A Other fracture of right lower leg, initial encounter for closed fracture (principal) ==

== ENCOUNTER → 2023-02-23 | Outpatient (REF) | payer MEDICARE, MEDICAID ==
[2023-02-23 18:18] LABS: BASO # 0.1 10^3/uL (0.0-0.2); BASO % 0.4 % (0.0-1.0); EOS % 0.2 % (0.0-3.0); HEMATOCRIT 45.3 % (36.0-47.0); LYMPH # 1.5 10^3/uL (1.5-5.0); LYMPH % 8.2 % (24.0-44.0); MEAN CORPUSCULAR HEMOGLOBIN 29.7 pg (27.0-33.0); MEAN CORPUSCULAR HGB CONC 30.9 g/dl (32.0-36.5); MONO # 1.1 10^3/uL (0.0-0.8); MONO % 5.7 % (2.0-8.0); NEUTROPHILS # 15.9 10^3/uL (1.5-8.5); NEUTROPHILS % 84.5 % (36.0-66.0); PLATELET COUNT, AUTOMATED 308 10^3/uL (150-450); RED BLOOD COUNT 4.72 10^6/uL (4.00-5.40); WHITE BLOOD COUNT 18.8 10^3/uL (4.0-10.0)
[2023-02-23 19:37] LABS: BLOOD UREA NITROGEN 16 MG/DL (9-23); CALCIUM LEVEL 9.3 MG/DL (8.3-10.6); CARBON DIOXIDE LEVEL 27 MMOL/L (20-31); CHLORIDE LEVEL 103 MMOL/L (98-107); CREATININE FOR GFR 0.96 MG/DL (0.55-1.30); GLOMERULAR FILTRATION RATE > 60.0 (>45); GLUCOSE, FASTING 97 MG/DL (74-106); POTASSIUM SERUM 3.8 MMOL/L (3.5-5.1); SODIUM LEVEL 137 MMOL/L (136-145)
== END ==
LOC: M LAB REF 16:29
PROVIDERS: ATTEND Nurse Practitioner Family
DX: L03.114 Cellulitis of left upper limb (principal); M79.89 Other specified soft tissue disorders; E87.6 Hypokalemia

== ENCOUNTER → 2023-03-02 | Outpatient (CLI) | payer MEDICARE, MEDICAID | LOC: M SOG 14:18 | PROVIDERS: ATTEND Orthopaedic Surgery | DX: S22.080A Wedge compression fracture of T11-T12 vertebra, initial encounter for closed fracture (principal); S32.010A Wedge compression fracture of first lumbar vertebra, initial encounter for closed fracture; M51.36 Other intervertebral disc degeneration, lumbar region; M46.96 Unspecified inflammatory spondylopathy, lumbar region; M41.9 Scoliosis, unspecified ==

== ENCOUNTER → 2023-03-05 | Outpatient (CLI) | payer MEDICARE, MEDICAID | LOC: M SOG 13:31 | PROVIDERS: ATTEND Physician Assistant | DX: S82.891A Other fracture of right lower leg, initial encounter for closed fracture (principal) ==

== ENCOUNTER → 2023-03-09 | Outpatient (CLI) | payer MEDICARE, MEDICAID | LOC: M RAD 14:45 | PROVIDERS: ATTEND Orthopaedic Surgery | DX: M48.50XA Collapsed vertebra, not elsewhere classified, site unspecified, initial encounter for fracture (principal) ==

== ENCOUNTER → 2023-03-31 | Outpatient (REF) | payer OTHER, MEDICAID ==
[2023-03-31 17:21] LABS: BASO # 0.1 10^3/uL (0.0-0.2); BASO % 0.5 % (0.0-1.0); EOS % 0.1 % (0.0-3.0); HEMATOCRIT 45.6 % (36.0-47.0); HEMOGLOBIN 13.8 g/dl (12.0-15.5); LYMPH % 10.7 % (24.0-44.0); MEAN CORPUSCULAR HEMOGLOBIN 28.3 pg (27.0-33.0); MEAN CORPUSCULAR HGB CONC 30.3 g/dl (32.0-36.5); MEAN CORPUSCULAR VOLUME 93.4 fl (80.0-96.0); MONO # 0.3 10^3/uL (0.0-0.8); MONO % 2.8 % (2.0-8.0); NEUTROPHILS # 7.8 10^3/uL (1.5-8.5); NEUTROPHILS % 85.5 % (36.0-66.0); PLATELET COUNT, AUTOMATED 238 10^3/uL (150-450); RED BLOOD COUNT 4.88 10^6/uL (4.00-5.40); WHITE BLOOD COUNT 9.2 10^3/uL (4.0-10.0)
== END ==
LOC: M LAB REF 16:38
PROVIDERS: ATTEND Nurse Practitioner Family
DX: R89.9 Unspecified abnormal finding in specimens from other organs, systems and tissues (principal)

== ENCOUNTER → 2023-04-02 | Outpatient (CLI) | payer OTHER, MEDICAID | LOC: M SOG 11:22 | PROVIDERS: ATTEND Physician Assistant | DX: S82.891D Other fracture of right lower leg, subsequent encounter for closed fracture with routine healing (principal) ==

== ENCOUNTER → 2023-04-09 | Outpatient (CLI) | payer MEDICARE, MEDICAID | LOC: M SOG 08:52 | PROVIDERS: ATTEND Orthopaedic Surgery | DX: M48.54XA Collapsed vertebra, not elsewhere classified, thoracic region, initial encounter for fracture (principal); M47.815 Spondylosis without myelopathy or radiculopathy, thoracolumbar region ==

== ENCOUNTER → 2023-05-13 | Outpatient (CLI) | payer MEDICARE, MEDICAID | LOC: M WHC 10:22 | PROVIDERS: ATTEND Nurse Practitioner Family | DX: Z12.31 Encounter for screening mammogram for malignant neoplasm of breast (principal) ==

== ENCOUNTER → 2024-04-19 | Outpatient (CLI) | payer MEDICARE, MEDICAID ==
[2024-04-19 14:16] LABS: BASO # 0.1 10^3/uL (0.0-0.2); BASO % 0.7 % (0.0-1.0); EOS # 0.1 10^3/uL (0.0-0.5); EOS % 0.6 % (0.0-3.0); HEMATOCRIT 41.5 % (36.0-47.0); LYMPH # 2.5 10^3/uL (1.5-5.0); MEAN CORPUSCULAR HEMOGLOBIN 29.3 pg (27.0-33.0); MEAN CORPUSCULAR HGB CONC 31.3 g/dl (32.0-36.5); MEAN CORPUSCULAR VOLUME 93.7 fl (80.0-96.0); MONO # 0.9 10^3/uL (0.0-0.8); MONO % 9.9 % (2.0-8.0); NEUTROPHILS # 5.2 10^3/uL (1.5-8.5); NEUTROPHILS % 59.1 % (36.0-66.0); PLATELET COUNT, AUTOMATED 275 10^3/uL (150-450); RED BLOOD COUNT 4.43 10^6/uL (4.00-5.40); WHITE BLOOD COUNT 8.7 10^3/uL (4.0-10.0)
[2024-04-19 14:44] LABS: ALBUMIN 2.7 G/DL (3.2-5.2); ALKALINE PHOSPHATASE 86 U/L (46-116); ALT/SGPT 16 U/L (7.0-40); AST/SGOT 21 U/L (<34); BILIRUBIN,TOTAL 0.4 MG/DL (0.3-1.2); BLOOD UREA NITROGEN 11 MG/DL (9-23); CALCIUM LEVEL 8.8 MG/DL (8.3-10.6); CARBON DIOXIDE LEVEL 34 MMOL/L (20-31); CHLORIDE LEVEL 103 MMOL/L (98-107); CREATININE FOR GFR 0.94 MG/DL (0.55-1.30); GLOMERULAR FILTRATION RATE > 60.0 (>39); GLUCOSE, FASTING 76 MG/DL (74-106); POTASSIUM SERUM 3.4 MMOL/L (3.5-5.1); SODIUM LEVEL 141 MMOL/L (136-145); TOTAL PROTEIN 6.1 G/DL (5.7-8.2)
[2024-04-19 14:46] LABS: VITAMIN B12 LEVEL 397 PG/ML (211-911)
[2024-04-19 14:47] LABS: FOLATE > 24.0 NG/ML (>5.4)
== END ==
LOC: M PLALAB 09:56
PROVIDERS: ATTEND Psychiatry & Neurology Neurology
DX: J44.9 Chronic obstructive pulmonary disease, unspecified (principal); G60.9 Hereditary and idiopathic neuropathy, unspecified

== ENCOUNTER → 2024-05-02 | Outpatient (REF) | payer MEDICARE, MEDICAID ==
[2024-05-02 19:06] LABS: HEMOGLOBIN A1c 5.3 % (4.0-6.0)
[2024-05-02 19:07] LABS: CHOLESTEROL RISK RATIO 2.72 (<5); HDL CHOLESTEROL 59.4 MG/DL (>40); LDL CHOLESTEROL 81.2 MG/DL (<100); NON-HDL-C 102.6 MG/DL
[2024-05-02 19:10] LABS: THYROID STIMULATING HORMONE 1.44 uIU/ML (0.55-4.78)
== END ==
LOC: M LAB REF 17:22
PROVIDERS: ATTEND Nurse Practitioner Family
DX: Z13.6 Encounter for screening for cardiovascular disorders (principal); Z68.26 Body mass index [BMI] 26.0-26.9, adult; E66.3 Overweight

== ENCOUNTER → 2024-05-03 | Outpatient (CLI) | payer MEDICARE, MEDICAID | LOC: M SOG 07:56 | PROVIDERS: ATTEND Physician Assistant | DX: M25.571 Pain in right ankle and joints of right foot (principal) ==

== ENCOUNTER → 2024-05-17 | Outpatient (CLI) | payer MEDICARE, MEDICAID | LOC: M SOG 07:53 | PROVIDERS: ATTEND Physician Assistant | DX: S92.351D Displaced fracture of fifth metatarsal bone, right foot, subsequent encounter for fracture with routine healing (principal) ==

== ENCOUNTER → 2024-06-16 | Outpatient (CLI) | payer MEDICARE, MEDICAID | LOC: M SOG 07:58 | PROVIDERS: ATTEND Physician Assistant | DX: S92.351D Displaced fracture of fifth metatarsal bone, right foot, subsequent encounter for fracture with routine healing (principal) ==

== ENCOUNTER 2024-06-22 11:24 | Emergency (ER) | payer MEDICAID, MEDICARE ==
[~2024-06-22] VITALS: Ht 172.7 cm; Wt 75.9 kg
[2024-06-22] MEDS ORDERED: LIDO1ADH52 (11:47)
[2024-06-22] MEDS ORDERED: [UNRECOGNIZED DRUG - CODE] (11:47)
[2024-06-22] MEDS ORDERED: DULO1CAP5 PO (11:47)
[2024-06-22] MEDS ORDERED: GAMU20IN (11:47)
[2024-06-22] MEDS: BACITRACIN OINTMENT 30GM TUBE TOP ONE (13:30)
[2024-06-22 13:55] VITALS: BP 132/86; TEMP 98.2; O2SAT 98
== END 2024-06-22 14:00 | disposition home or self-care (01) ==
LOC: M ED 11:24 → EDBD 11:24 → M ED 14:00
DX: S81.811A Laceration without foreign body, right lower leg, initial encounter (principal); S81.812A Laceration without foreign body, left lower leg, initial encounter; W20.8XXA Other cause of strike by thrown, projected or falling object, initial encounter; I10 Essential (primary) hypertension; F10.10 Alcohol abuse, uncomplicated; G61.0 Guillain-Barre syndrome; Z87.891 Personal history of nicotine dependence; Z88.2 Allergy status to sulfonamides; Y92.009 Unspecified place in unspecified non-institutional (private) residence as the place of occurrence of the external cause; Y93.89 Activity, other specified; Y99.9 Unspecified external cause status; Z86.16 Personal history of COVID-19; Z79.899 Other long term (current) drug therapy; Z79.52 Long term (current) use of systemic steroids

== ENCOUNTER → 2024-07-18 | Outpatient (CLI) | payer MEDICARE ==
[~2024-07-18] MED LIST changes: +DULO1CAP5 PO; +GAMU20IN; +LIDO1ADH52; +[UNRECOGNIZED DRUG - CODE]
== END ==
LOC: M SOG 07:54
PROVIDERS: ATTEND Physician Assistant
DX: S92.351D Displaced fracture of fifth metatarsal bone, right foot, subsequent encounter for fracture with routine healing (principal)

== ENCOUNTER → 2024-08-01 | Outpatient (CLI) | payer MEDICARE | LOC: M SOG 07:55 | PROVIDERS: ATTEND Physician Assistant | DX: M79.671 Pain in right foot (principal); M19.071 Primary osteoarthritis, right ankle and foot; M77.32 Calcaneal spur, left foot; S92.351D Displaced fracture of fifth metatarsal bone, right foot, subsequent encounter for fracture with routine healing ==

== ENCOUNTER → 2024-08-03 | Outpatient (CLI) | payer MEDICARE | LOC: M RAD 06:55 | PROVIDERS: ATTEND Nurse Practitioner Family | DX: R60.0 Localized edema (principal); M71.21 Synovial cyst of popliteal space [Baker], right knee ==

== ENCOUNTER → 2024-09-19 | Outpatient (CLI) | payer MEDICARE | LOC: M SOG 09:12 | PROVIDERS: ATTEND Physician Assistant | DX: S92.351D Displaced fracture of fifth metatarsal bone, right foot, subsequent encounter for fracture with routine healing (principal) ==

== ENCOUNTER 2024-10-10 06:59 | Outpatient (CLI) | payer MEDICARE ==
[~2024-10-10] VITALS: Ht 174 cm; Wt 75.9 kg
[2024-10-10] VITALS (7 sets, daily range): BP systolic 124–147; BP diastolic 69–86; O2SAT 96–100
[2024-10-10] MEDS: IMMUNE GLOBULIN 10% 40 GM in IV 1 EA IV ONE (07:58)
[2024-10-10] MEDS: IMMUNE GLOBULIN 10% 20 GM in IV 1 EA IV ONE (08:01)
[2024-10-10] MEDS: IMMUNE GLOBULIN 10% 5 GM in IV 1 EA IV ONE (08:02)
== END 2024-10-10 12:50 ==
LOC: M INFU 06:59
PROVIDERS: ATTEND Psychiatry & Neurology Neurology
DX: G61.81 Chronic inflammatory demyelinating polyneuritis (principal); Z88.2 Allergy status to sulfonamides
CPT/HCPCS: 96365; 96366; J1459

== ENCOUNTER 2024-10-11 07:09 | Outpatient (CLI) | payer MEDICARE ==
[2024-10-11 08:00] VITALS: BP 134/72; O2SAT 98
[2024-10-11] MEDS: IMMUNE GLOBULIN 10% 40 GM in IV 1 EA IV ONE (08:01)
[2024-10-11] MEDS: IMMUNE GLOBULIN 10% 20 GM in IV 1 EA IV ONE (08:05)
[2024-10-11] MEDS: IMMUNE GLOBULIN 10% 5 GM in IV 1 EA IV ONE (08:05)
[2024-10-11 08:30] VITALS: BP 138/70; O2SAT 97
[2024-10-11 09:00] VITALS: BP 130/81; O2SAT 98
[2024-10-11 09:30] VITALS: BP 120/63; O2SAT 96
[2024-10-11 10:30] VITALS: BP 129/71; O2SAT 97
[2024-10-11 13:00] VITALS: BP 135/74; O2SAT 94
== END 2024-10-11 13:00 | disposition home or self-care (01) ==
LOC: M INFU 07:09
PROVIDERS: ATTEND Psychiatry & Neurology Neurology
DX: G61.81 Chronic inflammatory demyelinating polyneuritis (principal); Z88.2 Allergy status to sulfonamides
CPT/HCPCS: 96365; 96366; J1459

== ENCOUNTER 2024-11-07 08:25 | Outpatient (CLI) | payer MEDICARE ==
[~2024-11-07] VITALS: Ht 172.7 cm; Wt 75.9 kg
[2024-11-07] VITALS (8 sets, daily range): BP systolic 136–157; BP diastolic 73–87; O2SAT 97–100
[2024-11-07] MEDS: IMMUNE GLOBULIN 10% 40 GM in IV 1 EA IV ONE (08:54)
[2024-11-07] MEDS: IMMUNE GLOBULIN 10% 5 GM in IV 1 EA IV ONE (08:55)
[2024-11-07] MEDS: IMMUNE GLOBULIN 10% 20 GM in IV 1 EA IV ONE (08:56)
== END 2024-11-07 14:25 ==
LOC: M INFU 08:25
PROVIDERS: ATTEND Psychiatry & Neurology Neurology
DX: G61.81 Chronic inflammatory demyelinating polyneuritis (principal); Z88.2 Allergy status to sulfonamides
CPT/HCPCS: 96365; 96366; J1459

== ENCOUNTER 2024-11-08 08:05 | Outpatient (CLI) | payer MEDICARE ==
[2024-11-08] VITALS (7 sets, daily range): BP systolic 129–177; BP diastolic 60–91; O2SAT 96–100
[~2024-11-08] VITALS: Ht 172.7 cm; Wt 75.9 kg
[2024-11-08] MEDS: IMMUNE GLOBULIN 10% 20 GM in IV 1 EA IV ONE (08:21)
[2024-11-08] MEDS: IMMUNE GLOBULIN 10% 40 GM in IV 1 EA IV ONE (08:21)
[2024-11-08] MEDS: IMMUNE GLOBULIN 10% 5 GM in IV 1 EA IV ONE (08:22)
== END 2024-11-08 13:30 ==
LOC: M INFU 08:05
PROVIDERS: ATTEND Psychiatry & Neurology Neurology
DX: G61.81 Chronic inflammatory demyelinating polyneuritis (principal); Z88.2 Allergy status to sulfonamides
CPT/HCPCS: 96365; 96366; J1459

== ENCOUNTER 2024-12-01 19:30 | Inpatient (IN) | payer MEDICARE ==
[~2024-12-01] VITALS: Ht 162.6 cm; Wt 72.8 kg
[~2024-12-01 19:30] MED LIST changes: -LIDO1ADH52; +LIDO1ADH52 TOP
[2024-12-01 20:21] LABS: BASO % 0.4 % (0.0-1.0); EOS # 0.3 10^3/uL (0.0-0.5); EOS % 3.3 % (0.0-3.0); HEMATOCRIT 41.2 % (36.0-47.0); HEMOGLOBIN 13.4 g/dl (12.0-15.5); LYMPH # 1.7 10^3/uL (1.5-5.0); LYMPH % 18.3 % (24.0-44.0); MEAN CORPUSCULAR HEMOGLOBIN 28.6 pg (27.0-33.0); MEAN CORPUSCULAR HGB CONC 32.5 g/dl (32.0-36.5); MEAN CORPUSCULAR VOLUME 87.8 fl (80.0-96.0); NEUTROPHILS # 6.4 10^3/uL (1.5-8.5); NEUTROPHILS % 67.6 % (36.0-66.0); PLATELET COUNT, AUTOMATED 258 10^3/uL (150-450); RED BLOOD COUNT 4.69 10^6/uL (4.00-5.40); WHITE BLOOD COUNT 9.5 10^3/uL (4.0-10.0)
[2024-12-01 20:34] LABS: KETONE, URINE AUTO RFX NEGATIVE (NEGATIVE); LEUKOCYTE ESTERASE UR AUTO RFX 3+ (NEGATIVE); MUCUS, URINE RFX SMALL (NEGATIVE); NITRITE, URINE AUTO RFX POSITIVE (NEGATIVE); RBC, URINE AUTO RFX 15 /HPF (0-3); SQUAM EPITHELIAL CELL UR AURFX 0 /HPF (0-6); WBC, URINE AUTO RFX TNTC /HPF (0-3)
[2024-12-01 20:44] LABS: ALBUMIN 2.8 G/DL (3.2-5.2); ALKALINE PHOSPHATASE 79 U/L (35-104); ALT/SGPT 18 U/L (7.0-40); AST/SGOT 60 U/L (<34); BILIRUBIN,TOTAL 0.4 MG/DL (0.3-1.2); BLOOD UREA NITROGEN 7 MG/DL (9-23); CALCIUM LEVEL 9.1 MG/DL (8.3-10.6); CARBON DIOXIDE LEVEL 30 MMOL/L (20-31); CHLORIDE LEVEL 103 MMOL/L (98-107); CREATININE FOR GFR 0.62 MG/DL (0.55-1.30); GLOMERULAR FILTRATION RATE > 60.0 (>39); GLUCOSE, FASTING 102 MG/DL (74-106); POTASSIUM SERUM 4.1 MMOL/L (3.5-5.1); SODIUM LEVEL 140 MMOL/L (136-145); TOTAL PROTEIN 7.1 G/DL (5.7-8.2)
[2024-12-01] MEDS: KETOROLAC 30 MG/ML 1ML VIAL IV ONE (22:17)
[2024-12-02] MEDS ORDERED: LIDOCAINE 4% TOPICAL SOLN 50 ML BTL TOP PRN (00:10)
[2024-12-02] MEDS ORDERED: ALEN70TA82 PO (00:19)
[2024-12-02] MEDS ORDERED: PRED5TA PO (00:19)
[2024-12-02] MEDS ORDERED: AMLO1TAB25 PO (00:19)
[2024-12-02] MEDS ORDERED: HOME MED LIST COMPLETE! XX SCH (00:20)
[2024-12-02] MEDS: cefTRIAXone SOD 1 GM in DEXTROSE 5% (D5W) ADV/MINI-BAG 50 ML IV ONE (00:20)
[2024-12-02] MEDS: NS (Normal Saline) 0.9% 1,000 ML IV SCH ×2 (01:48→11:12)
[2024-12-02 09:17] LABS: BASO # 0.1 10^3/uL (0.0-0.2); BASO % 0.8 % (0.0-1.0); EOS # 0.3 10^3/uL (0.0-0.5); EOS % 3.9 % (0.0-3.0); LYMPH # 1.9 10^3/uL (1.5-5.0); LYMPH % 24.2 % (24.0-44.0); MEAN CORPUSCULAR HEMOGLOBIN 28.6 pg (27.0-33.0); MEAN CORPUSCULAR HGB CONC 32.5 g/dl (32.0-36.5); MEAN CORPUSCULAR VOLUME 87.9 fl (80.0-96.0); MONO # 0.9 10^3/uL (0.0-0.8); MONO % 11.1 % (2.0-8.0); NEUTROPHILS # 4.6 10^3/uL (1.5-8.5); NEUTROPHILS % 59.5 % (36.0-66.0); PLATELET COUNT, AUTOMATED 257 10^3/uL (150-450); RED BLOOD COUNT 4.55 10^6/uL (4.00-5.40); WHITE BLOOD COUNT 7.7 10^3/uL (4.0-10.0)
[2024-12-02] MEDS ORDERED: KETOROLAC TROMETHAMINE 10 MG TAB PO PRN (09:35)
[2024-12-02 09:49] LABS: C REACTIVE PROTEIN QUANTITATIV 5.63 MG/DL (<1.0)
[2024-12-02 09:51] LABS: ALBUMIN 2.5 G/DL (3.2-5.2); ALKALINE PHOSPHATASE 77 U/L (35-104); ALT/SGPT 13 U/L (7.0-40); AST/SGOT 32 U/L (<34); BILIRUBIN,TOTAL 0.4 MG/DL (0.3-1.2); BLOOD UREA NITROGEN 9 MG/DL (9-23); CALCIUM LEVEL 8.9 MG/DL (8.3-10.6); CARBON DIOXIDE LEVEL 30 MMOL/L (20-31); CHLORIDE LEVEL 102 MMOL/L (98-107); CREATININE FOR GFR 0.65 MG/DL (0.55-1.30); GLOMERULAR FILTRATION RATE > 60.0 (>39); GLUCOSE, FASTING 92 MG/DL (74-106); MAGNESIUM LEVEL 1.7 MG/DL (1.8-2.4); POTASSIUM SERUM 3.2 MMOL/L (3.5-5.1); SODIUM LEVEL 142 MMOL/L (136-145); TOTAL PROTEIN 6.7 G/DL (5.7-8.2)
[2024-12-02] MEDS: ACETAMINOPHEN 500 MG TAB PO PRN (10:09)
[2024-12-02] MEDS: MONTELUKAST 10 MG TAB PO SCH (10:10)
[2024-12-02] MEDS: CETIRIZINE (ZyrTEC) 10 MG TAB PO SCH (10:10)
[2024-12-02] MEDS: FOLIC ACID 1MG TAB PO SCH (10:10)
[2024-12-02] MEDS: DULoxetine 30MG CAPSULE (CYMBALTA) PO SCH (10:10)
[2024-12-02] MEDS: FERROUS SULFATE 325MG TAB PO SCH (10:12)
[2024-12-02] MEDS: predniSONE 5 MG TAB PO SCH (10:12)
[2024-12-02] MEDS: ENOXAPARIN 40MG/0.4ML SYRINGE (J1650 PER 10MG) SC SCH (11:11)
[2024-12-02] MEDS: MAG SULF 1GM/100ML (MAG RUN) 1 GM in IV 1 EA IV ONE (11:36)
[2024-12-02] MEDS: POTASSIUM CHLORIDE 10MEQ SR TABLET PO ONE (11:59)
[2024-12-02] MEDS: oxyCODONE 5MG TAB PO PRN (12:00)
[2024-12-02] MEDS ORDERED: PROHANCE 279.3MG/ML 15ML VIAL As Ordered ONE (13:07)
[2024-12-03] MEDS: cefTRIAXone SOD 1 GM in DEXTROSE 5% (D5W) ADV/MINI-BAG 50 ML IV SCH (00:20)
[2024-12-03 07:13] LABS: BASO # 0.1 10^3/uL (0.0-0.2); BASO % 0.9 % (0.0-1.0); EOS # 0.3 10^3/uL (0.0-0.5); EOS % 3.5 % (0.0-3.0); HEMATOCRIT 38.2 % (36.0-47.0); HEMOGLOBIN 12.3 g/dl (12.0-15.5); LYMPH # 2.2 10^3/uL (1.5-5.0); LYMPH % 28.4 % (24.0-44.0); MEAN CORPUSCULAR HEMOGLOBIN 28.3 pg (27.0-33.0); MEAN CORPUSCULAR HGB CONC 32.2 g/dl (32.0-36.5); MONO # 0.9 10^3/uL (0.0-0.8); MONO % 11.3 % (2.0-8.0); NEUTROPHILS # 4.3 10^3/uL (1.5-8.5); NEUTROPHILS % 55.4 % (36.0-66.0); PLATELET COUNT, AUTOMATED 254 10^3/uL (150-450); RED BLOOD COUNT 4.34 10^6/uL (4.00-5.40); WHITE BLOOD COUNT 7.8 10^3/uL (4.0-10.0)
[2024-12-03 07:36] LABS: C REACTIVE PROTEIN QUANTITATIV 4.65 MG/DL (<1.0)
[2024-12-03 07:47] LABS: ALBUMIN 2.3 G/DL (3.2-5.2); ALKALINE PHOSPHATASE 70 U/L (35-104); ALT/SGPT 11 U/L (7.0-40); AST/SGOT 30 U/L (<34); BILIRUBIN,TOTAL 0.3 MG/DL (0.3-1.2); BLOOD UREA NITROGEN 10 MG/DL (9-23); CALCIUM LEVEL 8.3 MG/DL (8.3-10.6); CARBON DIOXIDE LEVEL 32 MMOL/L (20-31); CHLORIDE LEVEL 105 MMOL/L (98-107); CREATININE FOR GFR 0.66 MG/DL (0.55-1.30); GLOMERULAR FILTRATION RATE > 60.0 (>39); GLUCOSE, FASTING 87 MG/DL (74-106); MAGNESIUM LEVEL 1.9 MG/DL (1.8-2.4); POTASSIUM SERUM 3.4 MMOL/L (3.5-5.1); SODIUM LEVEL 143 MMOL/L (136-145); TOTAL PROTEIN 6.1 G/DL (5.7-8.2)
[2024-12-03] MEDS ORDERED: IMMUNE GLOBULIN 10% 70 GM in IV 1 EA IV SCH (08:45)
[2024-12-03] MEDS: POTASSIUM CHLORIDE 10MEQ SR TABLET PO ONE (09:39)
[2024-12-03] MEDS: IMMUNE GLOBULIN 10% 10 GM in IV 1 EA IV SCH (13:07)
[2024-12-03 14:10] VITALS: BP 123/64; TEMP 97.3; O2SAT 95
[2024-12-03] MEDS: IMMUNE GLOBULIN 10% 20 GM in IV 1 EA IV SCH (15:04)
[2024-12-03] MEDS: IMMUNE GLOBULIN 10% 40 GM in IV 1 EA IV SCH (17:24)
[2024-12-03 19:51] VITALS: BP 120/67; TEMP 98.1; O2SAT 95
[2024-12-04 04:33] VITALS: BP 111/51; TEMP 99; O2SAT 94
[2024-12-04 06:55] LABS: BASO # 0.1 10^3/uL (0.0-0.2); BASO % 0.9 % (0.0-1.0); EOS # 0.2 10^3/uL (0.0-0.5); EOS % 2.9 % (0.0-3.0); HEMATOCRIT 34.9 % (36.0-47.0); LYMPH # 1.8 10^3/uL (1.5-5.0); LYMPH % 25.9 % (24.0-44.0); MEAN CORPUSCULAR HEMOGLOBIN 28.5 pg (27.0-33.0); MEAN CORPUSCULAR HGB CONC 31.5 g/dl (32.0-36.5); MEAN CORPUSCULAR VOLUME 90.4 fl (80.0-96.0); MONO # 0.8 10^3/uL (0.0-0.8); MONO % 11.8 % (2.0-8.0); NEUTROPHILS % 58.1 % (36.0-66.0); PLATELET COUNT, AUTOMATED 234 10^3/uL (150-450); RED BLOOD COUNT 3.86 10^6/uL (4.00-5.40); WHITE BLOOD COUNT 6.9 10^3/uL (4.0-10.0)
[2024-12-04 07:22] LABS: C REACTIVE PROTEIN QUANTITATIV 2.29 MG/DL (<1.0)
[2024-12-04 07:26] LABS: ALKALINE PHOSPHATASE 59 U/L (35-104); ALT/SGPT 9 U/L (7.0-40); AST/SGOT 23 U/L (<34); BILIRUBIN,TOTAL 0.3 MG/DL (0.3-1.2); BLOOD UREA NITROGEN 11 MG/DL (9-23); CALCIUM LEVEL 8.1 MG/DL (8.3-10.6); CARBON DIOXIDE LEVEL 28 MMOL/L (20-31); CHLORIDE LEVEL 105 MMOL/L (98-107); CREATININE FOR GFR 0.64 MG/DL (0.55-1.30); GLOMERULAR FILTRATION RATE > 60.0 (>39); GLUCOSE, FASTING 96 MG/DL (74-106); MAGNESIUM LEVEL 1.6 MG/DL (1.8-2.4); POTASSIUM SERUM 3.7 MMOL/L (3.5-5.1); SODIUM LEVEL 141 MMOL/L (136-145); TOTAL PROTEIN 6.7 G/DL (5.7-8.2)
[2024-12-04] MEDS: METHOTREXATE 2.5MG TAB PO SCH (09:15)
[2024-12-04] MEDS: CEFDINIR 300 MG CAP (OMNICEF) PO SCH (09:42)
[2024-12-04] MEDS: MAG SULF 1GM/100ML (MAG RUN) 1 GM in IV 1 EA IV SCH (09:43)
[2024-12-04 13:02] VITALS: BP 130/73; TEMP 98.6; O2SAT 94
[2024-12-04 20:02] VITALS: BP 131/72; TEMP 99.9; O2SAT 95
[2024-12-05 03:56] VITALS: BP 106/56; TEMP 100.2; O2SAT 95
[2024-12-05 06:16] LABS: BASO # 0.1 10^3/uL (0.0-0.2); BASO % 0.8 % (0.0-1.0); EOS # 0.1 10^3/uL (0.0-0.5); EOS % 1.1 % (0.0-3.0); HEMATOCRIT 31.2 % (36.0-47.0); LYMPH # 1.2 10^3/uL (1.5-5.0); LYMPH % 18.9 % (24.0-44.0); MEAN CORPUSCULAR HEMOGLOBIN 28.1 pg (27.0-33.0); MEAN CORPUSCULAR HGB CONC 32.1 g/dl (32.0-36.5); MEAN CORPUSCULAR VOLUME 87.6 fl (80.0-96.0); MONO # 0.8 10^3/uL (0.0-0.8); MONO % 12.3 % (2.0-8.0); NEUTROPHILS # 4.1 10^3/uL (1.5-8.5); NEUTROPHILS % 66.6 % (36.0-66.0); PLATELET COUNT, AUTOMATED 220 10^3/uL (150-450); RED BLOOD COUNT 3.56 10^6/uL (4.00-5.40); WHITE BLOOD COUNT 6.1 10^3/uL (4.0-10.0)
[2024-12-05 06:37] LABS: C REACTIVE PROTEIN QUANTITATIV 2.05 MG/DL (<1.0)
[2024-12-05 06:41] LABS: ALBUMIN 1.9 G/DL (3.2-5.2); ALKALINE PHOSPHATASE 53 U/L (35-104); ALT/SGPT < 9 U/L (7.0-40); AST/SGOT 20 U/L (<34); BILIRUBIN,TOTAL 0.4 MG/DL (0.3-1.2); BLOOD UREA NITROGEN 11 MG/DL (9-23); CARBON DIOXIDE LEVEL 28 MMOL/L (20-31); CHLORIDE LEVEL 103 MMOL/L (98-107); GLOMERULAR FILTRATION RATE > 60.0 (>39); GLUCOSE, FASTING 94 MG/DL (74-106); MAGNESIUM LEVEL 1.7 MG/DL (1.8-2.4); POTASSIUM SERUM 3.5 MMOL/L (3.5-5.1); SODIUM LEVEL 137 MMOL/L (136-145); TOTAL PROTEIN 7.9 G/DL (5.7-8.2)
[2024-12-05] MEDS: MAG SULF 1GM/100ML (MAG RUN) 1 GM in IV 1 EA IV ONE (08:41)
[2024-12-05] MEDS: ACETAMINOPHEN 325 MG TAB PO PRN (08:47)
[2024-12-05 08:50] VITALS: TEMP 99.7
[2024-12-05] MEDS ORDERED: ISOVUE-370 76% 100ML VIAL As Ordered ONE (10:06)
[2024-12-05 12:00] VITALS: BP 115/61; TEMP 98.6; O2SAT 92
[2024-12-05 20:24] VITALS: BP 132/66; TEMP 98.4; O2SAT 92
[2024-12-06 04:30] VITALS: BP 128/68; TEMP 98.1; O2SAT 91
[2024-12-06 06:59] LABS: BASO % 1.1 % (0.0-1.0); EOS # 0.1 10^3/uL (0.0-0.5); EOS % 2.2 % (0.0-3.0); HEMATOCRIT 31.4 % (36.0-47.0); LYMPH # 1.2 10^3/uL (1.5-5.0); LYMPH % 32.4 % (24.0-44.0); MEAN CORPUSCULAR HEMOGLOBIN 28.2 pg (27.0-33.0); MEAN CORPUSCULAR HGB CONC 31.8 g/dl (32.0-36.5); MEAN CORPUSCULAR VOLUME 88.5 fl (80.0-96.0); MONO # 0.5 10^3/uL (0.0-0.8); MONO % 12.8 % (2.0-8.0); NEUTROPHILS # 1.8 10^3/uL (1.5-8.5); NEUTROPHILS % 50.9 % (36.0-66.0); PLATELET COUNT, AUTOMATED 200 10^3/uL (150-450); RED BLOOD COUNT 3.55 10^6/uL (4.00-5.40); WHITE BLOOD COUNT 3.6 10^3/uL (4.0-10.0)
[2024-12-06 07:33] LABS: C REACTIVE PROTEIN QUANTITATIV 2.69 MG/DL (<1.0)
[2024-12-06 07:48] LABS: ALBUMIN 1.9 G/DL (3.2-5.2); ALKALINE PHOSPHATASE 56 U/L (35-104); ALT/SGPT 11 U/L (7.0-40); AST/SGOT 26 U/L (<34); BILIRUBIN,TOTAL 0.3 MG/DL (0.3-1.2); BLOOD UREA NITROGEN 8 MG/DL (9-23); CALCIUM LEVEL 7.9 MG/DL (8.3-10.6); CARBON DIOXIDE LEVEL 29 MMOL/L (20-31); CHLORIDE LEVEL 103 MMOL/L (98-107); CREATININE FOR GFR 0.59 MG/DL (0.55-1.30); GLOMERULAR FILTRATION RATE > 60.0 (>39); GLUCOSE, FASTING 82 MG/DL (74-106); MAGNESIUM LEVEL 1.7 MG/DL (1.8-2.4); POTASSIUM SERUM 3.2 MMOL/L (3.5-5.1); SODIUM LEVEL 138 MMOL/L (136-145); TOTAL PROTEIN 7.5 G/DL (5.7-8.2)
[2024-12-06] MEDS: MAGNESIUM OXIDE 400MG TAB (MAG-OX) PO SCH (09:42)
[2024-12-06] MEDS: POTASSIUM CHLORIDE 10% LIQ 20MEQ/15ML UDC PO ONE (09:42)
[2024-12-06] MEDS: MAG SULF 1GM/100ML (MAG RUN) 1 GM in IV 1 EA IV ONE (09:44)
[2024-12-06 12:00] VITALS: BP 115/67; TEMP 98.1; O2SAT 94
[2024-12-06] MEDS: LIDOCAINE 5% (LIDODERM) PATCH TD PRN (13:35)
[2024-12-06 20:00] VITALS: BP 160/88; TEMP 97; O2SAT 95
[2024-12-06] MEDS: POTASSIUM CHLORIDE 10MEQ SR TABLET PO ONE (21:13)
[2024-12-07 04:00] VITALS: BP 156/86; TEMP 97.3; O2SAT 95
[2024-12-07 12:00] VITALS: BP 140/71; TEMP 96.8; O2SAT 97
[2024-12-08 05:20] VITALS: BP 139/83; TEMP 97.5
[2024-12-09 04:57] VITALS: BP 114/68; TEMP 97.6; O2SAT 96
[2024-12-10 05:05] VITALS: BP 111/68; TEMP 97.3; O2SAT 96
[2024-12-10 08:26] VITALS: BP 112/67
[2024-12-10] MEDS ORDERED: LIDO1ADH52 TOP (10:21)
[2024-12-10] MEDS ORDERED: OXYC1TAB23 PO (10:27)
== END 2024-12-10 12:35 | disposition home health service (06) | DRG 690 ==
LOC: M ED 19:30 → M ED INP 19:31 → M MS5PR 12-03 14:04 → OBSVTOIN 12-05 10:19
PROVIDERS: ADMIT Student in an Organized Health Care Education/Training Program; ATTEND Internal Medicine
DX: N39.0 Urinary tract infection, site not specified (principal); G61.81 Chronic inflammatory demyelinating polyneuritis; I10 Essential (primary) hypertension; R53.1 Weakness; R26.2 Difficulty in walking, not elsewhere classified; R32 Unspecified urinary incontinence; E83.42 Hypomagnesemia; E87.6 Hypokalemia; M16.0 Bilateral primary osteoarthritis of hip; B96.20 Unspecified Escherichia coli [E. coli] as the cause of diseases classified elsewhere; E88.09 Other disorders of plasma-protein metabolism, not elsewhere classified; D50.9 Iron deficiency anemia, unspecified; Z79.899 Other long term (current) drug therapy; F39 Unspecified mood [affective] disorder

== ENCOUNTER 2024-12-26 11:19 | Emergency (ER) | payer MEDICARE ==
[~2024-12-26] VITALS: Ht 172.7 cm; Wt 75.9 kg
[~2024-12-26 11:19] MED LIST changes: -CEFD1CAP9 PO; -ELIQ5TAB PO
[2024-12-26 11:28] VITALS: BP 107/74; TEMP 97.8; O2SAT 96
[2024-12-26 13:44] LABS: BASO # 0.1 10^3/uL (0.0-0.2); BASO % 0.6 % (0.0-1.0); EOS % 0.4 % (0.0-3.0); LYMPH # 0.9 10^3/uL (1.5-5.0); LYMPH % 9.5 % (24.0-44.0); MEAN CORPUSCULAR HEMOGLOBIN 28.9 pg (27.0-33.0); MEAN CORPUSCULAR HGB CONC 31.8 g/dl (32.0-36.5); MEAN CORPUSCULAR VOLUME 90.7 fl (80.0-96.0); MONO # 0.3 10^3/uL (0.0-0.8); MONO % 3.7 % (2.0-8.0); NEUTROPHILS # 7.7 10^3/uL (1.5-8.5); NEUTROPHILS % 85.6 % (36.0-66.0); PLATELET COUNT, AUTOMATED 231 10^3/uL (150-450); RED BLOOD COUNT 4.85 10^6/uL (4.00-5.40); WHITE BLOOD COUNT 8.9 10^3/uL (4.0-10.0)
[2024-12-26 13:54] LABS: ERYTHROCYTE SEDIMENTATION RATE 51 mm/hr (0-30)
[2024-12-26 13:59] LABS: INR 0.98; PARTIAL THROMBOPLASTIN TIME 27.1 SECONDS (24.8-34.2); PROTHROMBIN TIME 13.3 SECONDS (12.5-14.5)
[2024-12-26 14:10] LABS: LIPASE 33 U/L (12-53)
[2024-12-26 14:13] LABS: C REACTIVE PROTEIN QUANTITATIV < 0.50 MG/DL (<1.0)
[2024-12-26 14:15] LABS: ALBUMIN 3.2 G/DL (3.2-5.2); ALKALINE PHOSPHATASE 77 U/L (35-104); ALT/SGPT 25 U/L (7.0-40); AST/SGOT 43 U/L (<34); BILIRUBIN,DIRECT 0.1 MG/DL (<0.4); BILIRUBIN,TOTAL 0.5 MG/DL (0.3-1.2); BLOOD UREA NITROGEN 11 MG/DL (9-23); CALCIUM LEVEL 9.6 MG/DL (8.3-10.6); CARBON DIOXIDE LEVEL 30 MMOL/L (20-31); CHLORIDE LEVEL 105 MMOL/L (98-107); GLOMERULAR FILTRATION RATE > 60.0 (>39); GLUCOSE, FASTING 115 MG/DL (74-106); POTASSIUM SERUM 4.3 MMOL/L (3.5-5.1); SODIUM LEVEL 144 MMOL/L (136-145); TOTAL PROTEIN 7.5 G/DL (5.7-8.2)
[2024-12-26 19:30] LABS: KETONE, URINE AUTO RFX TRACE mg/dL (NEGATIVE); MUCUS, URINE RFX SMALL (NEGATIVE); RBC, URINE AUTO RFX 7 /HPF (0-3); SQUAM EPITHELIAL CELL UR AURFX 2 /HPF (0-6)
[2024-12-26] MEDS: APIXABAN 5 MG TAB (ELIQUIS) PO ONE (19:31)
[2024-12-26 19:59] LABS: LEUKOCYTE ESTERASE UR AUTO RFX 3+ (NEGATIVE); NITRITE, URINE AUTO RFX POSITIVE (NEGATIVE); WBC, URINE AUTO RFX TNTC /HPF (0-3)
[2024-12-26] MEDS ORDERED: CEFD1CAP9 PO (20:50)
[2024-12-26] MEDS ORDERED: ELIQ5TAB PO (20:50)
[2024-12-26] MEDS: CEFDINIR 300 MG CAP (OMNICEF) PO ONE (20:52)
== END 2024-12-26 21:21 | disposition home or self-care (01) ==
LOC: M ED 11:19 → EDBD 11:19 → M ED 21:21
DX: I82.412 Acute embolism and thrombosis of left femoral vein (principal); N39.0 Urinary tract infection, site not specified; I10 Essential (primary) hypertension; Z88.2 Allergy status to sulfonamides; Z79.899 Other long term (current) drug therapy; Z79.2 Long term (current) use of antibiotics; Z79.52 Long term (current) use of systemic steroids; Z79.01 Long term (current) use of anticoagulants

== ENCOUNTER → 2024-12-26 | Outpatient (CLI) | payer MEDICARE ==
[~2024-12-26] MED LIST changes: +ALEN70TA82 PO; +AMLO1TAB25 PO; +CEFD1CAP9 PO; +ELIQ5TAB PO; +OXYC1TAB23 PO; +PRED5TA PO
== END ==
LOC: M SOG 07:53
PROVIDERS: ATTEND Physician Assistant
DX: Z53.9 Procedure and treatment not carried out, unspecified reason (principal)

== ENCOUNTER 2025-01-14 07:14 | Emergency (ER) | payer MEDICARE ==
[~2025-01-14 07:14] MED LIST changes: +CEFD1CAP9 PO; +ELIQ5TAB PO
[2025-01-14 08:13] LABS: HEMATOCRIT 39.2 % (36.0-47.0); HEMOGLOBIN 12.5 g/dl (12.0-15.5); MEAN CORPUSCULAR HEMOGLOBIN 28.7 pg (27.0-33.0); MEAN CORPUSCULAR HGB CONC 31.9 g/dl (32.0-36.5); MEAN CORPUSCULAR VOLUME 89.9 fl (80.0-96.0); PLATELET COUNT, AUTOMATED 297 10^3/uL (150-450); RED BLOOD COUNT 4.36 10^6/uL (4.00-5.40)
[2025-01-14 08:45] LABS: BLOOD UREA NITROGEN 7 MG/DL (9-23); CALCIUM LEVEL 10.3 MG/DL (8.3-10.6); CARBON DIOXIDE LEVEL 28 MMOL/L (20-31); CHLORIDE LEVEL 105 MMOL/L (98-107); CREATININE FOR GFR 0.86 MG/DL (0.55-1.30); GLOMERULAR FILTRATION RATE > 60.0 (>39); GLUCOSE, FASTING 99 MG/DL (74-106); POTASSIUM SERUM 2.9 MMOL/L (3.5-5.1); SODIUM LEVEL 145 MMOL/L (136-145)
[2025-01-14] MEDS ORDERED: BACIOIN5 OP (09:06)
[2025-01-14] MEDS: POTASSIUM CHLORIDE 10MEQ SR TABLET PO ONE ×2 (09:30→11:40)
[2025-01-14] MEDS ORDERED: POTA10CA70 PO (10:07)
[2025-01-14 11:35] VITALS: BP 139/74; TEMP 97.6; O2SAT 97
== END 2025-01-14 13:18 | disposition home or self-care (01) ==
LOC: M ED 07:14 → EDBD 07:14 → M ED 13:18
DX: E87.6 Hypokalemia (principal); Z86.718 Personal history of other venous thrombosis and embolism; I10 Essential (primary) hypertension; F17.200 Nicotine dependence, unspecified, uncomplicated; Z88.2 Allergy status to sulfonamides; Z79.2 Long term (current) use of antibiotics; Z79.52 Long term (current) use of systemic steroids; Z79.01 Long term (current) use of anticoagulants; Z79.899 Other long term (current) drug therapy

== ENCOUNTER → 2025-01-18 | Outpatient (CLI) | payer MEDICARE ==
[~2025-01-18] MED LIST changes: +BACIOIN5 OP; +POTA10CA70 PO
== END ==
LOC: M SOG 07:50
PROVIDERS: ATTEND Physician Assistant
DX: M16.12 Unilateral primary osteoarthritis, left hip (principal)

== ENCOUNTER 2025-02-04 17:49 | Inpatient (IN) | payer MEDICARE ==
[~2025-02-04] VITALS: Ht 172.7 cm; Wt 76.2 kg
[2025-02-04 19:30] LABS: BASO # 0.1 10^3/uL (0.0-0.2); BASO % 0.6 % (0.0-1.0); EOS # 0.1 10^3/uL (0.0-0.5); EOS % 0.7 % (0.0-3.0); HEMATOCRIT 37.4 % (36.0-47.0); LYMPH % 12.2 % (24.0-44.0); MEAN CORPUSCULAR HGB CONC 32.1 g/dl (32.0-36.5); MEAN CORPUSCULAR VOLUME 90.3 fl (80.0-96.0); MONO # 0.3 10^3/uL (0.0-0.8); MONO % 3.8 % (2.0-8.0); NEUTROPHILS # 6.9 10^3/uL (1.5-8.5); NEUTROPHILS % 82.2 % (36.0-66.0); PLATELET COUNT, AUTOMATED 226 10^3/uL (150-450); RED BLOOD COUNT 4.14 10^6/uL (4.00-5.40); WHITE BLOOD COUNT 8.4 10^3/uL (4.0-10.0)
[2025-02-04 19:36] LABS: ERYTHROCYTE SEDIMENTATION RATE 31 mm/hr (0-30)
[2025-02-04 19:56] LABS: ALBUMIN 3.3 G/DL (3.2-5.2); ALKALINE PHOSPHATASE 88 U/L (35-104); ALT/SGPT 15 U/L (7.0-40); AST/SGOT 18 U/L (<34); BILIRUBIN,DIRECT 0.2 MG/DL (<0.4); BILIRUBIN,TOTAL 0.5 MG/DL (0.3-1.2); BLOOD UREA NITROGEN 9 MG/DL (9-23); C REACTIVE PROTEIN QUANTITATIV 0.68 MG/DL (<1.0); CALCIUM LEVEL 9.5 MG/DL (8.3-10.6); CARBON DIOXIDE LEVEL 29 MMOL/L (20-31); CHLORIDE LEVEL 104 MMOL/L (98-107); CREATININE FOR GFR 0.71 MG/DL (0.55-1.30); GLOMERULAR FILTRATION RATE > 60.0 (>39); GLUCOSE, FASTING 106 MG/DL (74-106); POTASSIUM SERUM 3.9 MMOL/L (3.5-5.1); SODIUM LEVEL 143 MMOL/L (136-145); TOTAL PROTEIN 6.6 G/DL (5.7-8.2)
[2025-02-04 19:57] LABS: THYROID STIMULATING HORMONE 1.056 uIU/ML (0.55-4.78)
[2025-02-04 19:58] LABS: FREE T4 1.07 NG/DL (0.89-1.76)
[2025-02-04] MEDS: CEFEPIME HCL 2 GM in DEXTROSE 5% (D5W) ADV/MINI-BAG 50 ML IV ONE (20:13)
[2025-02-04 20:23] LABS: KETONE, URINE AUTO RFX NEGATIVE (NEGATIVE); RBC, URINE AUTO RFX 1 /HPF (0-3); SQUAM EPITHELIAL CELL UR AURFX 0 /HPF (0-6)
[2025-02-04 20:31] LABS: LEUKOCYTE ESTERASE UR AUTO RFX 2+ (NEGATIVE); NITRITE, URINE AUTO RFX POSITIVE (NEGATIVE); WBC, URINE AUTO RFX 13 /HPF (0-3)
[2025-02-04] MEDS ORDERED: VANCOMYCIN HCL 1,000 MG, VIAL MATE ADAPTER 1 EACH in NS 250 ML IV SCH (22:20)
[2025-02-04] MEDS ORDERED: MOM 30ML SUSPENSION UDC PO PRN (22:20)
[2025-02-04] MEDS ORDERED: ELIQ5TAB PO (22:25)
[2025-02-04] MEDS ORDERED: HOME MED LIST COMPLETE! XX SCH (22:30)
[2025-02-04] MEDS: NICOTINE 14 MG/24 HR TRANSDERMAL TD ONE (22:35)
[2025-02-04 22:39] LABS: PROCALCITONIN 0.07 ng/ml
[2025-02-04 23:28] VITALS: BP 118/68; TEMP 97.3; O2SAT 97
[2025-02-04] MEDS: VANCOMYCIN HCL 1,500 MG, VIAL MATE ADAPTER 1 EACH in NS 500 ML IV ONE (23:59)
[2025-02-05] MEDS: ACETAMINOPHEN 325 MG TAB PO PRN
[2025-02-05 04:02] VITALS: BP 91/56; TEMP 97.7; O2SAT 91
[2025-02-05 05:54] LABS: BASO # 0.1 10^3/uL (0.0-0.2); BASO % 0.8 % (0.0-1.0); EOS # 0.1 10^3/uL (0.0-0.5); EOS % 1.7 % (0.0-3.0); HEMATOCRIT 34.3 % (36.0-47.0); HEMOGLOBIN 10.8 g/dl (12.0-15.5); LYMPH # 1.8 10^3/uL (1.5-5.0); LYMPH % 23.8 % (24.0-44.0); MEAN CORPUSCULAR HEMOGLOBIN 28.4 pg (27.0-33.0); MEAN CORPUSCULAR HGB CONC 31.5 g/dl (32.0-36.5); MEAN CORPUSCULAR VOLUME 90.3 fl (80.0-96.0); MONO # 0.7 10^3/uL (0.0-0.8); MONO % 9.1 % (2.0-8.0); NEUTROPHILS # 4.9 10^3/uL (1.5-8.5); NEUTROPHILS % 64.3 % (36.0-66.0); PLATELET COUNT, AUTOMATED 214 10^3/uL (150-450); WHITE BLOOD COUNT 7.6 10^3/uL (4.0-10.0)
[2025-02-05 06:20] LABS: ALBUMIN 2.4 G/DL (3.2-5.2); ALKALINE PHOSPHATASE 68 U/L (35-104); ALT/SGPT 9 U/L (7.0-40); AST/SGOT 15 U/L (<34); BILIRUBIN,TOTAL 0.3 MG/DL (0.3-1.2); BLOOD UREA NITROGEN 10 MG/DL (9-23); CALCIUM LEVEL 8.5 MG/DL (8.3-10.6); CARBON DIOXIDE LEVEL 29 MMOL/L (20-31); CHLORIDE LEVEL 108 MMOL/L (98-107); CREATININE FOR GFR 0.66 MG/DL (0.55-1.30); GLOMERULAR FILTRATION RATE > 60.0 (>39); GLUCOSE, FASTING 88 MG/DL (74-106); POTASSIUM SERUM 3.3 MMOL/L (3.5-5.1); SODIUM LEVEL 145 MMOL/L (136-145); TOTAL PROTEIN 5.2 G/DL (5.7-8.2)
[2025-02-05] MEDS: predniSONE 5 MG TAB PO SCH (08:17)
[2025-02-05] MEDS: CEFEPIME HCL 2 GM in DEXTROSE 5% (D5W) ADV/MINI-BAG 50 ML IV SCH (08:17)
[2025-02-05] MEDS: APIXABAN 5 MG TAB (ELIQUIS) PO SCH (08:18)
[2025-02-05] MEDS: FOLIC ACID 1MG TAB PO SCH (08:18)
[2025-02-05] MEDS: DULoxetine 30MG CAPSULE (CYMBALTA) PO SCH (08:18)
[2025-02-05] MEDS: FERROUS SULFATE 325MG TAB PO SCH (08:19)
[2025-02-05] MEDS: CETIRIZINE (ZyrTEC) 10 MG TAB PO SCH (08:19)
[2025-02-05] MEDS: POTASSIUM CHLORIDE 10MEQ SR TABLET PO ONE (09:50)
[2025-02-05 12:00] VITALS: BP 106/78; TEMP 97.6; O2SAT 98
[2025-02-05] MEDS: VANCOMYCIN HCL 1,000 MG, VIAL MATE ADAPTER 1 EACH in NS 250 ML IV SCH (12:41)
[2025-02-05 19:42] VITALS: BP 107/60; TEMP 98.2; O2SAT 94
[2025-02-06 03:50] VITALS: BP 108/62; TEMP 97.2; O2SAT 90
[2025-02-06 06:19] LABS: BLOOD UREA NITROGEN 9 MG/DL (9-23); CARBON DIOXIDE LEVEL 25 MMOL/L (20-31); CHLORIDE LEVEL 112 MMOL/L (98-107); CREATININE FOR GFR 0.65 MG/DL (0.55-1.30); GLOMERULAR FILTRATION RATE > 60.0 (>39); GLUCOSE, FASTING 107 MG/DL (74-106); POTASSIUM SERUM 3.5 MMOL/L (3.5-5.1); SODIUM LEVEL 146 MMOL/L (136-145)
[2025-02-06 06:25] LABS: BASO # 0.1 10^3/uL (0.0-0.2); BASO % 0.6 % (0.0-1.0); EOS # 0.3 10^3/uL (0.0-0.5); EOS % 3.5 % (0.0-3.0); HEMATOCRIT 35.2 % (36.0-47.0); HEMOGLOBIN 10.9 g/dl (12.0-15.5); LYMPH # 2.1 10^3/uL (1.5-5.0); MEAN CORPUSCULAR HEMOGLOBIN 28.8 pg (27.0-33.0); MEAN CORPUSCULAR VOLUME 92.9 fl (80.0-96.0); MONO # 0.6 10^3/uL (0.0-0.8); MONO % 7.9 % (2.0-8.0); NEUTROPHILS # 4.9 10^3/uL (1.5-8.5); NEUTROPHILS % 61.6 % (36.0-66.0); PLATELET COUNT, AUTOMATED 203 10^3/uL (150-450); RED BLOOD COUNT 3.79 10^6/uL (4.00-5.40)
[2025-02-06] MEDS: POTASSIUM CHLORIDE 10MEQ SR TABLET PO ONE ×2 (10:00→11:43)
[2025-02-06] MEDS: D5W 500 ML IV SCH (11:42)
[2025-02-06 12:00] VITALS: BP 111/61; TEMP 97.5; O2SAT 92
[2025-02-06] MEDS ORDERED: VANCOMYCIN HCL 750 MG, VIAL MATE ADAPTER 1 EACH in NS 250 ML IV SCH (12:00)
[2025-02-06 13:07] VITALS: BP 110/64; TEMP 99.6; O2SAT 99
[2025-02-06 19:29] VITALS: BP 129/78; TEMP 98.4; O2SAT 96
[2025-02-06] MEDS: CEFDINIR 300 MG CAP (OMNICEF) PO SCH (20:16)
[2025-02-07 03:56] VITALS: BP 127/78; TEMP 97.9; O2SAT 94
[2025-02-07 06:18] LABS: BASO # 0.1 10^3/uL (0.0-0.2); BASO % 0.8 % (0.0-1.0); EOS # 0.4 10^3/uL (0.0-0.5); EOS % 5.3 % (0.0-3.0); HEMOGLOBIN 11.1 g/dl (12.0-15.5); LYMPH % 25.3 % (24.0-44.0); MEAN CORPUSCULAR HEMOGLOBIN 28.2 pg (27.0-33.0); MEAN CORPUSCULAR HGB CONC 30.8 g/dl (32.0-36.5); MEAN CORPUSCULAR VOLUME 91.4 fl (80.0-96.0); MONO # 0.7 10^3/uL (0.0-0.8); NEUTROPHILS # 4.7 10^3/uL (1.5-8.5); PLATELET COUNT, AUTOMATED 224 10^3/uL (150-450); RED BLOOD COUNT 3.94 10^6/uL (4.00-5.40); WHITE BLOOD COUNT 7.9 10^3/uL (4.0-10.0)
[2025-02-07 06:42] LABS: BLOOD UREA NITROGEN 8 MG/DL (9-23); CALCIUM LEVEL 8.3 MG/DL (8.3-10.6); CARBON DIOXIDE LEVEL 27 MMOL/L (20-31); CHLORIDE LEVEL 111 MMOL/L (98-107); CREATININE FOR GFR 0.59 MG/DL (0.55-1.30); GLOMERULAR FILTRATION RATE > 60.0 (>39); GLUCOSE, FASTING 83 MG/DL (74-106); SODIUM LEVEL 147 MMOL/L (136-145)
[2025-02-07] MEDS: D5W 1,000 ML IV SCH (07:35)
[2025-02-07 09:11] VITALS: BP 128/70
[2025-02-07] MEDS ORDERED: CEFD300CAP PO (11:35)
[2025-02-07 12:00] VITALS: BP 125/69; TEMP 97.5; O2SAT 96
== END 2025-02-07 14:50 | disposition home health service (06) | DRG 603 ==
LOC: EDBD 17:49 → M ED 17:49 → M ED INP 22:19 → M MS5PR 23:33
PROVIDERS: ADMIT Internal Medicine; ATTEND Internal Medicine
DX: L03.116 Cellulitis of left lower limb (principal); G61.81 Chronic inflammatory demyelinating polyneuritis; N39.0 Urinary tract infection, site not specified; L97.929 Non-pressure chronic ulcer of unspecified part of left lower leg with unspecified severity; E87.0 Hyperosmolality and hypernatremia; I10 Essential (primary) hypertension; D50.9 Iron deficiency anemia, unspecified; E87.6 Hypokalemia; Z86.718 Personal history of other venous thrombosis and embolism; Z88.2 Allergy status to sulfonamides; Z79.899 Other long term (current) drug therapy

== ENCOUNTER 2025-02-13 09:46 | Outpatient (CLI) | payer MEDICARE, OTHER ==
[~2025-02-13] VITALS: Ht 172.7 cm; Wt 75.9 kg
[2025-02-13] VITALS (7 sets, daily range): BP systolic 112–129; BP diastolic 65–80; O2SAT 95–98
[~2025-02-13 09:46] MED LIST changes: +CEFD300CAP PO
[2025-02-13] MEDS: IMMUNE GLOBULIN 10% 40 GM in IV 1 EA IV ONE (10:44)
[2025-02-13] MEDS: IMMUNE GLOBULIN 10% 5 GM in IV 1 EA IV ONE (13:12)
[2025-02-13] MEDS: IMMUNE GLOBULIN 10% 20 GM in IV 1 EA IV ONE (13:12)
== END 2025-02-13 16:00 ==
LOC: M INFU 09:46
PROVIDERS: ATTEND Psychiatry & Neurology Neurology
DX: G61.81 Chronic inflammatory demyelinating polyneuritis (principal); Z88.2 Allergy status to sulfonamides
CPT/HCPCS: 96365; 96366; J1459

== ENCOUNTER → 2025-02-14 | Outpatient (CLI) | payer MEDICARE, OTHER ==
[~2025-02-14] VITALS: Ht 172.7 cm; Wt 75.1 kg
[2025-02-14] VITALS (7 sets, daily range): BP systolic 111–127; BP diastolic 56–77; O2SAT 93–99
[2025-02-14] MEDS: IMMUNE GLOBULIN 10% 5 GM in IV 1 EA IV ONE (10:04)
[2025-02-14] MEDS: IMMUNE GLOBULIN 10% 20 GM in IV 1 EA IV ONE (10:05)
[2025-02-14] MEDS: IMMUNE GLOBULIN 10% 40 GM in IV 1 EA IV ONE (10:06)
== END ==
LOC: M INFU 09:20
PROVIDERS: ATTEND Psychiatry & Neurology Neurology
DX: G61.81 Chronic inflammatory demyelinating polyneuritis (principal); Z88.2 Allergy status to sulfonamides
CPT/HCPCS: 96365; 96366; J1459

== ENCOUNTER 2025-04-03 09:22 | Outpatient (CLI) | payer MEDICARE, MEDICAID ==
[~2025-04-03] VITALS: Ht 172.7 cm; Wt 70.9 kg
[2025-04-03 09:45] VITALS: BP 151/71; O2SAT 98
[2025-04-03] MEDS: IMMUNE GLOBULIN 10% 40 GM in IV 1 EA IV ONE (10:02)
[2025-04-03] MEDS: IMMUNE GLOBULIN 10% 5 GM in IV 1 EA IV ONE (10:06)
[2025-04-03] MEDS: IMMUNE GLOBULIN 10% 20 GM in IV 1 EA IV ONE (10:07)
[2025-04-03 10:30] VITALS: BP 125/60; O2SAT 99
[2025-04-03 11:00] VITALS: BP 130/74; O2SAT 100
[2025-04-03 11:30] VITALS: BP 140/88; O2SAT 100
[2025-04-03 12:30] VITALS: BP 148/79; O2SAT 100
[2025-04-03 14:50] VITALS: BP 123/56; O2SAT 97
== END 2025-04-03 15:00 | disposition home or self-care (01) ==
LOC: M INFU 09:22
PROVIDERS: ATTEND Psychiatry & Neurology Neurology
DX: G61.81 Chronic inflammatory demyelinating polyneuritis (principal); Z88.2 Allergy status to sulfonamides
CPT/HCPCS: 96365; 96366; J1459

== ENCOUNTER 2025-04-04 10:18 | Outpatient (CLI) | payer MEDICARE ==
[~2025-04-04] VITALS: Ht 172.7 cm; Wt 71.0 kg
[2025-04-04 10:25] VITALS: BP 159/78; O2SAT 98
[2025-04-04] MEDS: IMMUNE GLOBULIN 10% 40 GM in IV 1 EA IV ONE (10:47)
[2025-04-04] MEDS: IMMUNE GLOBULIN 10% 20 GM in IV 1 EA IV ONE (10:49)
[2025-04-04] MEDS: IMMUNE GLOBULIN 10% 5 GM in IV 1 EA IV ONE (10:50)
[2025-04-04 11:15] VITALS: BP 135/66; O2SAT 97
[2025-04-04 11:45] VITALS: BP 119/63; O2SAT 98
[2025-04-04 12:15] VITALS: BP 120/70; O2SAT 98
== END 2025-04-04 15:45 ==
LOC: M INFU 10:18
PROVIDERS: ATTEND Psychiatry & Neurology Neurology
DX: G61.81 Chronic inflammatory demyelinating polyneuritis (principal); Z88.2 Allergy status to sulfonamides
CPT/HCPCS: 96365; 96366; J1459

== ENCOUNTER 2025-06-06 07:29 | Outpatient (CLI) | payer MEDICARE ==
[~2025-06-06] VITALS: Ht 172.7 cm; Wt 73.0 kg
[2025-06-06 08:20] VITALS: BP 128/68; O2SAT 100
[2025-06-06] MEDS: IMMUNE GLOBULIN 10% 40 GM in IV 1 EA IV ONE (08:23)
[2025-06-06] MEDS: IMMUNE GLOBULIN 10% 5 GM in IV 1 EA IV ONE (08:24)
[2025-06-06] MEDS: IMMUNE GLOBULIN 10% 20 GM in IV 1 EA IV ONE (08:25)
[2025-06-06 09:00] VITALS: BP 130/71; O2SAT 100
[2025-06-06 09:30] VITALS: BP 113/55; O2SAT 96
[2025-06-06 10:00] VITALS: BP 122/61; O2SAT 97
[2025-06-06 11:00] VITALS: BP 118/87; O2SAT 96
[2025-06-06 13:25] VITALS: BP 122/72; O2SAT 97
== END 2025-06-06 13:25 ==
LOC: M INFU 07:29
PROVIDERS: ATTEND Psychiatry & Neurology Neurology
DX: G61.81 Chronic inflammatory demyelinating polyneuritis (principal); Z88.2 Allergy status to sulfonamides
CPT/HCPCS: 96365; 96366; J1459

== ENCOUNTER 2025-06-07 07:41 | Outpatient (CLI) | payer MEDICARE ==
[~2025-06-07] VITALS: Ht 172.7 cm; Wt 70.5 kg
[2025-06-07] MEDS: IMMUNE GLOBULIN 10% 40 GM in IV 1 EA IV ONE (08:16)
[2025-06-07] MEDS: IMMUNE GLOBULIN 10% 5 GM in IV 1 EA IV ONE (08:17)
[2025-06-07] MEDS: IMMUNE GLOBULIN 10% 20 GM in IV 1 EA IV ONE (08:19)
[2025-06-07 09:00] VITALS: BP 136/84; O2SAT 96
[2025-06-07 09:30] VITALS: BP 130/69; O2SAT 98
[2025-06-07 10:00] VITALS: BP 127/64; O2SAT 97
[2025-06-07 11:00] VITALS: BP 120/70; O2SAT 98
[2025-06-07 12:00] VITALS: BP 119/81; O2SAT 98
[2025-06-07 13:40] VITALS: BP 127/73; O2SAT 96
== END 2025-06-07 13:45 | disposition home or self-care (01) ==
LOC: M INFU 07:41
PROVIDERS: ATTEND Psychiatry & Neurology Neurology
DX: G61.81 Chronic inflammatory demyelinating polyneuritis (principal); Z88.2 Allergy status to sulfonamides
CPT/HCPCS: 96365; 96366; J1459

== ENCOUNTER → 2025-07-06 | Outpatient (REF) | payer MEDICARE ==
[2025-07-06 13:45] LABS: APPEARANCE, URINE CLOUDY (CLEAR); BACTERIA, URINE AUTO 2+ (NEGATIVE); BILIRUBIN, URINE AUTO NEGATIVE (NEGATIVE); BLOOD, URINE BLOOD 1+ (NEGATIVE); GLUCOSE, URINE (UA) AUTO NEGATIVE (NEGATIVE); KETONE, URINE AUTO NEGATIVE (NEGATIVE); LEUKOCYTE ESTERASE, URINE AUTO 3+ (NEGATIVE); MUCUS, URINE SMALL (NEGATIVE); NITRITE, URINE AUTO POSITIVE (NEGATIVE); PROTEIN, URINE AUTO 1+ mg/dL (NEGATIVE); RBC, URINE AUTO 6 /HPF (0-3); SPECIFIC GRAVITY URINE AUTO 1.014 (1.002-1.035); SQUAMOUS EPITHELIAL CELL UR AU 2 /HPF (0-6); UROBILINOGEN, URINE AUTO 4.0 mg/dL (0.0-2.0); WBC, URINE AUTO 66 /HPF (0-3)
== END ==
LOC: M LAB REF 12:16
PROVIDERS: ATTEND Nurse Practitioner Family
DX: Z87.440 Personal history of urinary (tract) infections (principal); R30.0 Dysuria; R82.90 Unspecified abnormal findings in urine

== ENCOUNTER 2025-07-10 10:25 | Outpatient (CLI) | payer MEDICARE, MEDICAID ==
[~2025-07-10] VITALS: Ht 172.7 cm; Wt 68.2 kg
[2025-07-10 10:35] VITALS: BP 145/64; O2SAT 97
[2025-07-10] MEDS: IMMUNE GLOBULIN 10% 40 GM in IV 1 EA IV ONE (10:39)
[2025-07-10] MEDS: IMMUNE GLOBULIN 10% 20 GM in IV 1 EA IV ONE (10:40)
[2025-07-10] MEDS: IMMUNE GLOBULIN 10% 5 GM in IV 1 EA IV ONE (10:41)
[2025-07-10 11:30] VITALS: BP 137/69; O2SAT 98
[2025-07-10 12:00] VITALS: BP 139/71; O2SAT 97
[2025-07-10 12:30] VITALS: BP 130/70; O2SAT 96
[2025-07-10 13:30] VITALS: BP 130/84; O2SAT 97
[2025-07-10 16:00] VITALS: BP 124/59; O2SAT 100
== END 2025-07-10 16:10 | disposition home or self-care (01) ==
LOC: M INFU 10:25
PROVIDERS: ATTEND Psychiatry & Neurology Neurology
DX: G61.81 Chronic inflammatory demyelinating polyneuritis (principal); Z88.2 Allergy status to sulfonamides
CPT/HCPCS: 96365; 96366; J1459

== ENCOUNTER 2025-07-13 09:07 | Outpatient (RCR) | payer MEDICARE, MEDICAID | END 2025-07-23 | LOC: M PT 09:07 | PROVIDERS: ATTEND Physician Assistant | DX: M25.552 Pain in left hip (principal); M25.561 Pain in right knee; M25.562 Pain in left knee ==

== ENCOUNTER → 2025-07-20 | Outpatient (REF) | payer MEDICARE, MEDICAID ==
[2025-07-21 15:07] LABS: APPEARANCE, URINE CLOUDY (CLEAR); BACTERIA, URINE AUTO 1+ (NEGATIVE); BILIRUBIN, URINE AUTO NEGATIVE (NEGATIVE); BLOOD, URINE BLOOD 1+ (NEGATIVE); GLUCOSE, URINE (UA) AUTO NEGATIVE (NEGATIVE); KETONE, URINE AUTO NEGATIVE (NEGATIVE); LEUKOCYTE ESTERASE, URINE AUTO 3+ (NEGATIVE); NITRITE, URINE AUTO NEGATIVE (NEGATIVE); PROTEIN, URINE AUTO NEGATIVE (NEGATIVE); RBC, URINE AUTO 3 /HPF (0-3); SPECIFIC GRAVITY URINE AUTO 1.015 (1.002-1.035); SQUAMOUS EPITHELIAL CELL UR AU 2 /HPF (0-6); UROBILINOGEN, URINE AUTO 2.0 mg/dL (0.0-2.0); WBC, URINE AUTO 106 /HPF (0-3)
[2025-07-22 11:57] LABS: HPV APTIMA Not Detected (Not Detected)
== END ==
LOC: M LAB REF 14:37
PROVIDERS: ATTEND Nurse Practitioner Family
DX: N89.8 Other specified noninflammatory disorders of vagina (principal); Z87.440 Personal history of urinary (tract) infections; R30.0 Dysuria; R82.90 Unspecified abnormal findings in urine; Z12.4 Encounter for screening for malignant neoplasm of cervix
CPT/HCPCS: 81001; 87070; 87077; 87088; 87186; 87624; G0123

== ENCOUNTER 2025-07-26 16:57 | Emergency (ER) | payer MEDICARE, MEDICAID ==
[~2025-07-26] VITALS: Ht 172.7 cm; Wt 74.3 kg
[2025-07-26 17:05] VITALS: TEMP 99.8
[2025-07-26 20:05] LABS: KETONE, URINE AUTO RFX NEGATIVE (NEGATIVE); RBC, URINE AUTO RFX 66 /HPF (0-3); SQUAM EPITHELIAL CELL UR AURFX 1 /HPF (0-6)
[2025-07-26 20:06] LABS: LEUKOCYTE ESTERASE UR AUTO RFX 3+ (NEGATIVE); NITRITE, URINE AUTO RFX POSITIVE (NEGATIVE); WBC, URINE AUTO RFX 103 /HPF (0-3)
[2025-07-26 21:02] VITALS: BP 127/60; O2SAT 96
[2025-07-26] MEDS ORDERED: CEFD1CAP9 PO (21:03)
[2025-07-26] MEDS: CEFDINIR 300 MG CAP PO ONE (21:09)
== END 2025-07-26 21:22 | disposition home or self-care (01) ==
LOC: M ED 16:57
DX: N39.0 Urinary tract infection, site not specified (principal); F17.200 Nicotine dependence, unspecified, uncomplicated; Z88.2 Allergy status to sulfonamides; Z79.01 Long term (current) use of anticoagulants; Z79.2 Long term (current) use of antibiotics; Z79.899 Other long term (current) drug therapy

== ENCOUNTER 2025-08-09 08:12 | Outpatient (CLI) | payer MEDICARE, MEDICAID ==
[~2025-08-09] VITALS: Ht 170.2 cm; Wt 72.0 kg
[~2025-08-09 08:12] MED LIST changes: +ALBUTEROL SULFATE 2.5 MG/0.5 ML INH CONCENTRATE NEB SOLN INH PRN; +EPINEPHrine INJ 1 MG/ML 1ML AMP IM PRN; +NS (Normal Saline) 0.9% 1,000 ML IV SCH; +diphenhydrAMINE 50 MG/ML VIAL IV PRN
[2025-08-09 08:30] VITALS: BP 136/74; O2SAT 97
[2025-08-09] MEDS: IMMUNE GLOBULIN 10% 40 GM in IV 1 EA IV ONE (08:58)
[2025-08-09] MEDS: IMMUNE GLOBULIN 10% 20 GM in IV 1 EA IV ONE (08:59)
[2025-08-09] MEDS: IMMUNE GLOBULIN 10% 5 GM in IV 1 EA IV ONE (09:00)
[2025-08-09 09:30] VITALS: BP 128/66; O2SAT 96
[2025-08-09 10:34] VITALS: BP 107/51; O2SAT 94
[2025-08-09 12:00] VITALS: BP 112/62; O2SAT 93
[2025-08-09 13:28] VITALS: BP 111/55; O2SAT 94
[2025-08-09 14:13] VITALS: BP 122/60; O2SAT 98
== END 2025-08-09 14:15 | disposition home or self-care (01) ==
LOC: M INFU 08:12
PROVIDERS: ATTEND Psychiatry & Neurology Neurology
DX: G61.81 Chronic inflammatory demyelinating polyneuritis (principal); Z88.2 Allergy status to sulfonamides
CPT/HCPCS: 96365; 96366; J1459

== ENCOUNTER 2025-08-10 08:17 | Outpatient (CLI) | payer MEDICARE, MEDICAID ==
[~2025-08-10] VITALS: Ht 170.2 cm; Wt 72.0 kg
[2025-08-10 08:45] VITALS: BP 132/67; O2SAT 100
[2025-08-10] MEDS: IMMUNE GLOBULIN 10% 40 GM in IV 1 EA IV ONE (09:35)
[2025-08-10] MEDS: IMMUNE GLOBULIN 10% 5 GM in IV 1 EA IV ONE (09:36)
[2025-08-10] MEDS: IMMUNE GLOBULIN 10% 20 GM in IV 1 EA IV ONE (09:36)
[2025-08-10 10:09] LABS: BASO # 0.1 10^3/uL (0.0-0.2); BASO % 0.8 % (0.0-1.0); EOS # 0.1 10^3/uL (0.0-0.5); EOS % 1.7 % (0.0-3.0); LYMPH # 0.6 10^3/uL (1.5-5.0); LYMPH % 7.9 % (24.0-44.0); MONO # 0.8 10^3/uL (0.0-0.8); MONO % 10.8 % (2.0-8.0); NEUTROPHILS # 5.6 10^3/uL (1.5-8.5); NEUTROPHILS % 78.7 % (36.0-66.0); PLATELET COUNT, AUTOMATED 202 10^3/uL (150-450)
[2025-08-10 10:28] LABS: ALT/SGPT 9 U/L (7.0-40); AST/SGOT 19 U/L (<34); CALCIUM LEVEL 9.1 MG/DL (8.3-10.6); CARBON DIOXIDE LEVEL 28 MMOL/L (20-31); CHLORIDE LEVEL 103 MMOL/L (98-107); CREATININE FOR GFR 0.85 MG/DL (0.55-1.30); GLOMERULAR FILTRATION RATE 73.2 (>39); POTASSIUM SERUM 3.3 MMOL/L (3.5-5.1); SODIUM LEVEL 137 MMOL/L (136-145)
[2025-08-10 10:29] LABS: TOTAL 25(OH) VITAMIN D 52.1 NG/ML (20.0-100.0)
[2025-08-10 10:30] VITALS: BP 128/69; O2SAT 100
[2025-08-10 10:30] LABS: VITAMIN B12 LEVEL 352 PG/ML (211-911)
[2025-08-10 11:00] VITALS: BP 136/72; O2SAT 100
[2025-08-10 15:00] VITALS: BP 132/68; O2SAT 100
[2025-08-13 21:07] LABS: VITAMIN E(ALPHA TOCOPHEROL) 9.8 mg/L (5.7-19.9); VITAMIN E(GAMMA TOCOPHEROL) 1.9 mg/L (<=4.3)
== END 2025-08-10 15:05 | disposition home or self-care (01) ==
LOC: M INFU 08:17
PROVIDERS: ATTEND Psychiatry & Neurology Neurology
DX: G61.81 Chronic inflammatory demyelinating polyneuritis (principal); Z88.2 Allergy status to sulfonamides
CPT/HCPCS: 80053; 82306; 82607; 82746; 84207; 84425; 84446; 85025; 96365; 96366; J1459

== ENCOUNTER 2025-08-17 13:41 | Outpatient (RCR) | payer MEDICARE, MEDICAID ==
[~2025-08-17 13:41] MED LIST changes: -ALBUTEROL SULFATE 2.5 MG/0.5 ML INH CONCENTRATE NEB SOLN INH PRN; -EPINEPHrine INJ 1 MG/ML 1ML AMP IM PRN; -NS (Normal Saline) 0.9% 1,000 ML IV SCH; -diphenhydrAMINE 50 MG/ML VIAL IV PRN
== END 2025-08-22 ==
LOC: M PT 13:41
PROVIDERS: ATTEND Physician Assistant
DX: M25.552 Pain in left hip (principal); M25.562 Pain in left knee

== ENCOUNTER 2025-08-29 12:43 | Outpatient (RCR) | payer MEDICARE, MEDICAID ==
[2025-09-07] MEDS ORDERED: DULO60CA35 PO (13:08)
[2025-09-13] MEDS ORDERED: BISA10SU PR (12:09)
[2025-09-13] MEDS ORDERED: CEFP200T PO (12:13)
== END 2025-09-22 ==
LOC: M PT 12:43
PROVIDERS: ATTEND Physician Assistant
DX: M25.552 Pain in left hip (principal); M25.562 Pain in left knee; M25.561 Pain in right knee

== ENCOUNTER 2025-09-07 08:57 | Inpatient (IN) | payer MEDICARE, MEDICAID ==
[~2025-09-07] VITALS: Ht 162.6 cm; Wt 69.3 kg
[2025-09-07 09:54] LABS: BASO # 0.1 10^3/uL (0.0-0.2); BASO % 0.5 % (0.0-1.0); EOS # 0.4 10^3/uL (0.0-0.5); EOS % 4.4 % (0.0-3.0); LYMPH # 1.5 10^3/uL (1.5-5.0); LYMPH % 14.8 % (24.0-44.0); MONO # 0.7 10^3/uL (0.0-0.8); MONO % 7.3 % (2.0-8.0); NEUTROPHILS # 7.2 10^3/uL (1.5-8.5); NEUTROPHILS % 72.6 % (36.0-66.0); PLATELET COUNT, AUTOMATED 199 10^3/uL (150-450)
[2025-09-07 10:05] LABS: INR 0.92
[2025-09-07 10:25] LABS: ALT/SGPT 19.0 U/L (7.0-40); AST/SGOT 25.0 U/L (<34); CALCIUM LEVEL 9.3 MG/DL (8.3-10.6); CARBON DIOXIDE LEVEL 33.0 MMOL/L (20-31); CHLORIDE LEVEL 101.0 MMOL/L (98-107); CREATININE FOR GFR 0.79 MG/DL (0.55-1.30); GLOMERULAR FILTRATION RATE 79.9 (>39); POTASSIUM SERUM 3.6 MMOL/L (3.5-5.1); SODIUM LEVEL 143.0 MMOL/L (136-145)
[2025-09-07 11:40] LABS: C REACTIVE PROTEIN QUANTITATIV 0.98 MG/DL (<1.0)
[2025-09-07] MEDS ORDERED: DULO60CA35 PO (13:08)
[2025-09-07] MEDS ORDERED: HOME MED LIST COMPLETE! XX SCH (13:10)
[2025-09-07] MEDS: LIDOCAINE 2% 5 ML JELLY UROJET TOP ONE (14:50)
[2025-09-07 15:54] LABS: KETONE, URINE AUTO RFX NEGATIVE (NEGATIVE); LEUKOCYTE ESTERASE UR AUTO RFX 3+ (NEGATIVE); NITRITE, URINE AUTO RFX NEGATIVE (NEGATIVE); RBC, URINE AUTO RFX 5 /HPF (0-3); SQUAM EPITHELIAL CELL UR AURFX 0 /HPF (0-6); WBC, URINE AUTO RFX 27 /HPF (0-3)
[2025-09-07] MEDS ORDERED: MOM 30 ML SUSPENSION UDC PO PRN (16:10)
[2025-09-07] MEDS ORDERED: MAALOX 30 ML SUSP *UDC PO PRN (16:10)
[2025-09-07] MEDS ORDERED: ACETAMINOPHEN 325 MG TAB PO PRN (16:10)
[2025-09-07 17:52] VITALS: BP 136/71; TEMP 97.7; O2SAT 97
[2025-09-07] MEDS: NS (Normal Saline) 0.9% 1,000 ML IV SCH (17:59)
[2025-09-07] MEDS: cefTRIAXone SOD 1 GM in DEXTROSE 5% (D5W) ADV/MINI-BAG 50 ML IV SCH (17:59)
[2025-09-07 19:45] VITALS: BP 134/70; TEMP 97.9; O2SAT 98
[2025-09-08 04:00] VITALS: BP 106/61; TEMP 98.5; O2SAT 98
[2025-09-08] MEDS: PERCOCET 5MG/325MG TAB PO PRN (04:29)
[2025-09-08] MEDS: KETOROLAC 30 MG/ML 1 ML VIAL IV ONE (06:45)
[2025-09-08 07:34] LABS: CALCIUM LEVEL 7.9 MG/DL (8.3-10.6); CARBON DIOXIDE LEVEL 27 MMOL/L (20-31); CHLORIDE LEVEL 104 MMOL/L (98-107); CREATININE FOR GFR 0.65 MG/DL (0.55-1.30); GLOMERULAR FILTRATION RATE > 90.0 (>39); MAGNESIUM LEVEL 1.6 MG/DL (1.8-2.4); POTASSIUM SERUM 3.5 MMOL/L (3.5-5.1); SODIUM LEVEL 141 MMOL/L (136-145)
[2025-09-08] MEDS ORDERED: MAG SULF 1GM/100ML (MAG RUN) 1 GM in IV 1 EA IV SCH (07:50)
[2025-09-08] MEDS: ENOXAPARIN 40 MG/0.4 ML SYRINGE (J1650 PER 10MG) SC SCH (08:56)
[2025-09-08] MEDS: DIAPER RELIEF PASTE 60 GM TOP SCH (08:56)
[2025-09-08] MEDS: MAG SULF 1GM/100ML (MAG RUN) 1 GM in IV 1 EA IV SCH (08:58)
[2025-09-08] MEDS: NYSTATIN 500,000 UNITS/5 ML SUSP UDC SS SCH (10:08)
[2025-09-08 12:19] VITALS: BP 106/60; TEMP 97.9; O2SAT 100
[2025-09-08 20:20] VITALS: BP 115/63; TEMP 97.7; O2SAT 98
[2025-09-09 03:24] VITALS: BP 131/68; TEMP 97.9; O2SAT 92
[2025-09-09 12:00] VITALS: BP 127/70; TEMP 97.7; O2SAT 90
[2025-09-09 20:20] VITALS: BP 120/57; TEMP 98.3; O2SAT 96
[2025-09-10] VITALS (16 sets, daily range): BP systolic 117–137; BP diastolic 62–83; TEMP 97–98.1; O2SAT 93–98
[2025-09-10] MEDS ORDERED: ALBUTEROL SULFATE 2.5 MG/0.5 ML INH CONCENTRATE NEB SOLN INH PRN (07:01)
[2025-09-10] MEDS ORDERED: EPINEPHrine INJ 1 MG/ML 1ML AMP IM PRN (07:01)
[2025-09-10] MEDS ORDERED: diphenhydrAMINE 50 MG/ML VIAL IV PRN (07:01)
[2025-09-10] MEDS ORDERED: IMMUNE GLOBULIN 10% 0 GM in IV 1 EA IV SCH (12:10)
[2025-09-10] MEDS: IMMUNE GLOBULIN 10% 40 GM in IV 1 EA IV SCH (14:24)
[2025-09-10] MEDS: IMMUNE GLOBULIN 10% 20 GM in IV 1 EA IV SCH (18:59)
[2025-09-11] MEDS: IMMUNE GLOBULIN 10% 5 GM in IV 1 EA IV SCH (02:05)
[2025-09-11 03:02] VITALS: BP 123/67; TEMP 97.7; O2SAT 96
[2025-09-11 06:24] LABS: PLATELET COUNT, AUTOMATED 166 10^3/uL (150-450)
[2025-09-11 06:49] LABS: CALCIUM LEVEL 8.2 MG/DL (8.3-10.6); CARBON DIOXIDE LEVEL 27 MMOL/L (20-31); CHLORIDE LEVEL 106 MMOL/L (98-107); CREATININE FOR GFR 0.64 MG/DL (0.55-1.30); GLOMERULAR FILTRATION RATE > 90.0 (>39); POTASSIUM SERUM 3.5 MMOL/L (3.5-5.1); SODIUM LEVEL 142 MMOL/L (136-145)
[2025-09-11 12:00] VITALS: BP 119/73; TEMP 97.4; O2SAT 94
[2025-09-11 14:50] VITALS: BP_SYST 123; BP_SYST 129; BP_DIAS 61; BP_DIAS 64; TEMP 97.4; O2SAT 93
[2025-09-11 15:49] VITALS: BP 129/64; TEMP 97.4; O2SAT 96
[2025-09-11 17:11] VITALS: BP 121/57; TEMP 98.2; O2SAT 98
[2025-09-11 20:19] VITALS: BP 150/66; TEMP 98.3; O2SAT 96
[2025-09-11] MEDS: CEFPODOXIME PROXETIL 200 MG TABLET PO SCH (21:13)
[2025-09-12 04:54] VITALS: BP 127/58; TEMP 97.8; O2SAT 95
[2025-09-12 08:40] LABS: PLATELET COUNT, AUTOMATED 159 10^3/uL (150-450)
[2025-09-12 09:04] LABS: CALCIUM LEVEL 8.2 MG/DL (8.3-10.6); CARBON DIOXIDE LEVEL 28 MMOL/L (20-31); CHLORIDE LEVEL 104 MMOL/L (98-107); CREATININE FOR GFR 0.67 MG/DL (0.55-1.30); GLOMERULAR FILTRATION RATE > 90.0 (>39); POTASSIUM SERUM 3.6 MMOL/L (3.5-5.1); SODIUM LEVEL 140 MMOL/L (136-145)
[2025-09-12 12:00] VITALS: BP 115/55; TEMP 96.8; O2SAT 96
[2025-09-12 20:43] VITALS: BP 151/67; TEMP 97.3; O2SAT 97
[2025-09-13 03:46] VITALS: BP 142/72; TEMP 97.6; O2SAT 96
[2025-09-13 06:26] LABS: PLATELET COUNT, AUTOMATED 166 10^3/uL (150-450)
[2025-09-13 06:52] LABS: CALCIUM LEVEL 8.4 MG/DL (8.3-10.6); CARBON DIOXIDE LEVEL 25 MMOL/L (20-31); CHLORIDE LEVEL 104 MMOL/L (98-107); CREATININE FOR GFR 0.57 MG/DL (0.55-1.30); GLOMERULAR FILTRATION RATE > 90.0 (>39); POTASSIUM SERUM 4.8 MMOL/L (3.5-5.1); SODIUM LEVEL 139 MMOL/L (136-145)
[2025-09-13] MEDS: BISACODYL 10 MG SUPP PR SCH (09:00)
[2025-09-13] MEDS: SENNOSIDES/DOCUSATE SODIUM 8.6 MG/50MG TAB PO SCH (09:55)
[2025-09-13 11:54] VITALS: BP 105/57; TEMP 96.8; O2SAT 92
[2025-09-13] MEDS ORDERED: BISA10SU PR (12:09)
[2025-09-13] MEDS ORDERED: CEFP200T PO (12:13)
[2025-09-13] MEDS: MAGNESIUM CITRATE 300 ML BTL PO STA (12:41)
== END 2025-09-13 17:26 | disposition home health service (06) | DRG 74 ==
LOC: M ED 08:57 → EDBD 08:57 → INTOOBSV 16:07 → M ED INP 16:07 → M MSPAV 17:30 → OBSVTOIN 09-10 09:50
PROVIDERS: ADMIT Student in an Organized Health Care Education/Training Program; ATTEND Student in an Organized Health Care Education/Training Program
DX: G61.81 Chronic inflammatory demyelinating polyneuritis (principal); N39.0 Urinary tract infection, site not specified; B37.0 Candidal stomatitis; G89.29 Other chronic pain; I10 Essential (primary) hypertension; M54.50 Low back pain, unspecified; R26.9 Unspecified abnormalities of gait and mobility; B96.20 Unspecified Escherichia coli [E. coli] as the cause of diseases classified elsewhere; Z88.2 Allergy status to sulfonamides; Z79.899 Other long term (current) drug therapy

== ENCOUNTER 2025-10-13 08:36 | Outpatient (CLI) | payer MEDICARE, MEDICAID ==
[~2025-10-13] VITALS: Ht 172.7 cm; Wt 68.0 kg
[~2025-10-13 08:36] MED LIST changes: +ALBUTEROL SULFATE 2.5 MG/0.5 ML INH CONCENTRATE NEB SOLN INH PRN; +BISA10SU PR; +CEFP200T PO; +DULO60CA35 PO; +EPINEPHrine INJ 1 MG/ML 1ML AMP IM PRN; +IMMUNE GLOBULIN 10% 20 GM in IV 1 EA IV ONE; +IMMUNE GLOBULIN 10% 40 GM in IV 1 EA IV ONE; +IMMUNE GLOBULIN 10% 5 GM in IV 1 EA IV ONE; +NS (Normal Saline) 0.9% 1,000 ML IV SCH; +diphenhydrAMINE 50 MG/ML VIAL IV PRN
[2025-10-13 08:55] VITALS: BP 136/62; O2SAT 98
[2025-10-13] MEDS ORDERED: IMMUNE GLOBULIN 10% 5 GM in IV 1 EA IV ONE (09:00)
[2025-10-13] MEDS ORDERED: IMMUNE GLOBULIN 10% 20 GM in IV 1 EA IV ONE (09:00)
[2025-10-13] MEDS ORDERED: IMMUNE GLOBULIN 10% 40 GM in IV 1 EA IV ONE (09:00)
[2025-10-13] MEDS: IMMUNE GLOBULIN 10% 5 GM in IV 1 EA IV ONE (09:17)
[2025-10-13] MEDS: IMMUNE GLOBULIN 10% 20 GM in IV 1 EA IV ONE (09:20)
[2025-10-13] MEDS: IMMUNE GLOBULIN 10% 40 GM in IV 1 EA IV ONE (09:20)
[2025-10-13 09:45] VITALS: BP 130/70; O2SAT 97
[2025-10-13 10:15] VITALS: BP 129/81; O2SAT 95
[2025-10-13 11:45] VITALS: BP 139/80; O2SAT 97
[2025-10-13 12:45] VITALS: BP 130/81; O2SAT 98
[2025-10-13 14:37] VITALS: BP 115/59; O2SAT 99
== END 2025-10-13 14:50 ==
LOC: M INFU 08:36
PROVIDERS: ATTEND Psychiatry & Neurology Neurology
DX: G61.81 Chronic inflammatory demyelinating polyneuritis (principal); Z88.2 Allergy status to sulfonamides
CPT/HCPCS: 96365; 96366; J1459